=== PATIENT | female | born 1945 | race Caucasian/White ===

== ENCOUNTER → 2019-06-04 10:54 | Outpatient (CLI) | payer MEDICARE, OTHER, SELFPAY ==
--- NOTE | 2019-06-04 | DI.RAD.S_ITS ---
PROCEDURE: XR LUMBAR SPINE 2-3V INDICATIONS: LOW BACK PAIN,ACUTE TECHNIQUE: 5 views of the lumbar spine were acquired. COMPARISON: None. FINDINGS: Bones: 5 [id number] vertebrae are present. Mild dextroscoliosis. Multilevel grade one retrolisthesis. Mild multilevel disc degeneration and lower lumbar spine facet joint arthropathy.. No vertebral body compression fractures. No suspicious bony lesions. Soft tissues: Overlying bowel gas pattern is normal. No suspicious soft tissue calcifications. IMPRESSION: Multilevel spondylosis. Dictated by: Yonathan CHAVEZ Interpreted: Vera Gutierrez MD on 06/04/2019 at 17:33 Approved by: Vera Gutierrez M.D. on 06/04/2019 at 18:37
== END ==
PROVIDERS: PCP Family Medicine; Visit Provider Family Medicine
DX: M54.5 Low back pain (principal); M47.816 Spondylosis without myelopathy or radiculopathy, lumbar region
CPT/HCPCS: 72100

== ENCOUNTER → 2020-02-21 11:51 | Outpatient (CLI) | payer MEDICARE, OTHER, SELFPAY ==
[2020-02-21 12:17] LABS: Add Manual Diff / Slide Review NO; Basophils Absolute Auto 0 /uL (0-100); Basophils Percent Auto 0.6 % (0-2); Eosinophils Absolute Auto 100 /uL (0-450); Eosinophils Percent Auto 1.4 % (2-4); Hematocrit 37.8 % (41-53); Hemoglobin 12.6 g/dL (13.5-17.5); Lymphocytes Absolute Auto 1300 /uL (1100-4500); Lymphocytes Percent Auto 17.8 % (25-40); Mean Corpuscular HGB Conc 33.2 % (30-36); Mean Corpuscular Hemoglobin 29.5 PG (26-34); Mean Corpuscular Volume 88.8 fL (80-100); Monocytes Absolute Auto 600 /uL (0-900); Neutrophils Absolute Auto 5100 /uL (1500-7000); Neutrophils Percent Auto 72.2 % (50-75); Platelet Count 246 X10^3/uL (150-400); Red Blood Cell Count 4.26 X10^6/uL (4.5-5.9); Red Cell Distribution Width 15.4 % (11.6-14.8); White Blood Cell Count 7.1 X10^3/uL (4.5-11.0)
[2020-02-21 12:46] LABS: Alanine Aminotransferase 9 IU/L (<50); Albumin 3.4 g/dL (3.5-5.0); Albumin Globulin Ratio 0.8 (1.0-2.8); Alkaline Phosphatase 60 U/L (38-126); Aspartate Aminotransferase 27 IU/L (17-59); BUN Creatinine Ratio 10.2 (6-22); Bilirubin Total 0.7 mg/dL (0.2-1.3); Blood Urea Nitrogen 10 mg/dL (9-20); Calcium 8.7 mg/dL (8.4-10.2); Carbon Dioxide 28 mmol/L (22-32); Chloride 102 mmol/L (98-107); Estimated Glomerular Filt Rate > 60.0 mL/min (>60); Globulin 4.5 g/dL (1.7-4.1); Glucose 92 mg/dL (80-110); HEMOLYSIS 28 (0-50); Lipase 67 U/L (23-300); Potassium 4.4 mmol/L (3.4-5.1); Sodium 133 mmol/L (137-145); Total Protein 7.9 g/dL (6.3-8.2)
--- NOTE | 2020-02-21 14:16 | DI.CT.S_ITS ---
PROCEDURE: CT ABDOMEN PELVIS W CON INDICATIONS: LEFT LOWER QUADRANT PAIN TECHNIQUE: After the administration of oral and intravenous contrast, 5 mm thick sections acquired from the diaphragms to the symphysis. 5 mm thick coronal and sagittal reformats were performed. For radiation dose reduction, the following was used: automated exposure control, adjustment of mA and/or kV according to patient size. COMPARISON: None. FINDINGS: Image quality: Excellent. ABDOMEN: Lung bases: Lung bases are clear. Heart size is normal. There is a small hiatal hernia. Solid organs: Evaluation of the liver demonstrates no focal hepatic lesions. The gallbladder appears within normal limits without calcified gallstones. Biliary system is non-dilated. Pancreas enhances normally. No peripancreatic fat stranding or fluid collections. No pancreatic duct dilatation. The spleen is normal in size. No adrenal nodules. Kidneys demonstrate no hydronephrosis. Peritoneum and bowel: Stomach and small bowel loops are normal in caliber and wall thickness. There is colonic diverticulosis with associated peridiverticular inflammatory fat stranding and segmental colonic wall thickening in the proximal sigmoid colon consistent with acute diverticulitis. No diverticular abscess or definite macroscopic free air. No intraperitoneal free fluid. Nodes and vessels: No retroperitoneal or mesenteric adenopathy. Aorta and inferior vena cava are normal in caliber. Miscellaneous: No ventral hernias. PELVIS: Genitourinary: Bladder wall thickness is normal. Miscellaneous: No inguinal hernias or adenopathy. Bones: No suspicious bony lesions. No vertebral body compression fractures. IMPRESSION: 1. Acute diverticulitis in the proximal sigmoid colon without evidence of diverticular abscess or macroscopic free air. 2. Small hiatal hernia. Dictated by: Hever Ace M.D. on 02/21/2020 at 15:57 Approved by: Hever Ace M.D. on 02/21/2020 at 16:00
== END ==
PROVIDERS: PCP Family Medicine; Referring Provider Family Medicine; Visit Provider Family Medicine
DX: R10.32 Left lower quadrant pain (principal); K57.32 Diverticulitis of large intestine without perforation or abscess without bleeding; K44.9 Diaphragmatic hernia without obstruction or gangrene
CPT/HCPCS: 36415; 74177; 80053; 83690; 85025; Q9967

== ENCOUNTER 2020-04-29 13:00 | Outpatient (RCR) | payer MEDICARE, OTHER, SELFPAY ==
--- NOTE | 2019-05-07 15:52 | PT.OTN ---
Current Diagnoses Low back pain (05/07/19) Physical Therapy Treatment Note PT-OP-A Visit Information Start: 05/07/19 12:10 Freq: Status: Active Protocol: Document 05/07/19 12:18 MB (Rec: 05/07/19 12:48 MB [id number]) Out-Patient Physical Therapy Visit Information Visit Information Visit Type Initial Evaluation Visit Note Pt has been seen for extensive OPPT course previous to this one Visit Start Time 12:18 Visit Stop Time 13:00 Total Visit Minutes 42 Visit Number 1/KX modifier Precautions Precautions Falls, history of orthostasis and a-fib, pt takes Warfarin PT-OP-B Current Condition Start: 05/07/19 12:10 Freq: Status: Active Protocol: Document 05/07/19 12:18 MB (Rec: 05/07/19 12:48 MB [id number]) Current Condition History of Current Condition Onset Date 03/14 History of Current Condition Onset of back pain when catching right foot on edge of tub causing left foot to skid on tile. He grabbed rail on left side and then reached around with right hand also grabbed the rail. He pulled himself upright. He had to drag his right leg across the bathtub. Pt had increased LBP with ride from [place] this date. His pain is 6.5/10 with attempted 6MWT this date and so stopped. Pt reports pain and burning in the back of his legs. Further pain ratings: at their worse, LBP is 8/10, proximal LE pain is 7/10 and left heel pain is 5/10, right ankle 4/10. Pain is occ worse when up. PMH: orthostasis, PTSD, a-fib, Warfarin, falls, right ankle fracture, CA, sleep apnea and has CPAP, morbid obesity, lymphedema, dizziness and BPPV cleared by PT, memory loss. Prior Treatments and Tests OPPT Treatment Goals Patient/Caregiver Goals Decreased pain and increased mobility. He has not been going to [facility] regularly d/t pain and decreased mobility and he wants to get back to [facility]. Personal Factors Other Personal Factors That May Effect PTSD, long commute with Therapy/Recovery increased back pain with commute, history orthostasis and near-syncope PT-OP-C Subjective Start: 05/07/19 12:10 Freq: Status: Active Protocol: Document 05/07/19 12:18 MB (Rec: 05/07/19 12:49 MB [id number]) OP-PT Subjective Patient Comments Patient Comments See history of current complaints PT-OP-G Mobility & Gait Start: 05/07/19 12:10 Freq: Status: Active Protocol: Document 05/07/19 12:18 MB (Rec: 05/07/19 15:52 MB [id number]) OP Gait Assessment Comments Gait Comments Forward, flexed posture with use of his bariatric RW with tray. Decreased step-length and foot clearance and pt winces with pain after 112' gait and reports 6.5/10 LBP and so 6MWT stopped. He was able to walk this distance in 80 sec. PT-OP-M Strength Start: 05/07/19 12:10 Freq: Status: Active Protocol: Document 05/07/19 12:18 MB (Rec: 05/07/19 15:52 MB [id number]) Hip Strength Hip Manual Muscle Testing Left Flexion (L2) 2- Poor- Right Flexion (L2) 2- Poor- Comments Pt is unable to clear thigh off bench Knee Strength Knee Manual Muscle Testing Left Extension (L3) 3 Fair Comments Pt is unable to clear his foot back in sitting to assess knee flexion. Right Extension (L3) 3 Fair Comments Pt is unable to clear his foot back in sitting to assess knee flexion. Ankle/Foot Strength Ankle and Foot Manual Muscle Testing Left Dorsiflexion (L4) 4 Good Plantarflexion (S1) 4 Good Comments Great toe extension left 4/5 Right Dorsiflexion (L4) 4 Good Plantarflexion (S1) 3 Fair Comments Great toe extension right 3+/5 PT-OP-T Assessment and Plan Start: 05/07/19 12:10 Freq: Status: Active Protocol: Document 05/07/19 12:18 MB (Rec: 05/07/19 15:52 MB [id number]) Physical Therapy Assessment Rehab Potential Rehabilitation Potential Fair Evaluation Complexity Number of Personal Factors/Comorbidities 1-2 Number of Body Systems Impaired 3 Clinical Presentation at Evaluation Unstable Impairments Impairments Activity Tolerance,Balance, Edema,Functional Activities, Functional Mobility,Gait, Integument,Pain,Posture,ROM, Sensation,Soft Tissue Mobility ,Strength Other Impairments Pt presents with decreased sensation to light touch in his posterior LEs and feet. Goals 5 Care Home Goal (LTG) Pt will gait train 1200 feet with LRAD in 6 minutes by 07/07. LTG Duration 8 weeks 4 Impairment Inability to perform sit to stand on eval date without UE support Paving Bed Maker Goal (LTG) Pt will perform 15 reps sit to stand without UE support in 30 sec by 07/07/19. LTG Duration 8 weeks 3 Paving Bed Maker Goal (LTG) Pt will perform progressive HEP with I including flexibility, strengthening, gait and balance exercises by 07/07/19. LTG Duration 8 weeks 2 Care Home Goal (LTG) Pt will deny falls for 2 months by 07/07/19. LTG Duration 8 weeks 1 Paving Bed Maker Goal (LTG) Pt will present with an improved Oswestry LBP scale score to reflect no more than 30% impairment by 07/07/19. LTG Duration 8 weeks Assessment Summary Assessment Pt is a 73 y/o male presenting with back pain, decreased LE ROM (he cannot clear B thighs off bench when sitting), LE weakness and decreased walk test and sit to stand this date. He received PT earlier this year and presented with ability to go to [facility], clearer mentation (pt reports) and better gait. He reports declining mobility and ability to get out of his house since February 2019. Pt had a lot of back in low back after long ride from [place] to [place]. PT is concerned about pain and safety with the commute and transfer between public transportation vehicles . Will monitor his response to getting to appointments. He will benefit from PT for strengthening, balance and mobility training. He would benefit from PT 2x/wk but can only make 1x/wk d/t long distance, transportation trouble. Physical Therapy Plan Frequency and Duration Frequency of Treatment 1x/Week Duration of Treatment 8 weeks Plan of Care Start Date 05/07/19 Plan of Care End Date 07/08/19 Therapeutic Interventions Therapeutic Interventions Gait Training,Home Exercise Program,Manual Therapy, Neuromuscular Re-education, Patient/Caregiver Education, Self-Care/Home Management, Sensory Integration,Soft Tissue Mobilization,Taping, Therapeutic Exercises Next Visit Focus/Plan Next Note Type Treatment Note Next Visit Plan Initiate further mobility exercises
--- NOTE | 2019-05-17 13:08 | PT.OTN ---
Current Diagnoses Low back pain (05/17/19) Physical Therapy Treatment Note PT-OP-A Visit Information Start: 05/07/19 12:10 Freq: Status: Active Protocol: Document 05/17/19 12:02 MB (Rec: 05/17/19 13:07 MB [id number]) Out-Patient Physical Therapy Visit Information Visit Information Visit Type Treatment Note Visit Note Pt has been seen for extensive OPPT course previous to this one Visit Start Time 12:02 Visit Stop Time 12:55 Total Visit Minutes 53 Visit Number 2/KX modifier Precautions Precautions Falls, history of orthostasis and a-fib, pt takes Warfarin PT-OP-B Current Condition Start: 05/07/19 12:10 Freq: Status: Active Protocol: Document 05/07/19 12:18 MB (Rec: 05/07/19 12:48 MB [id number]) Current Condition History of Current Condition Onset Date 03/14 History of Current Condition Onset of back pain when catching right foot on edge of tub causing left foot to skid on tile. He grabbed rail on left side and then reached around with right hand also grabbed the rail. He pulled himself upright. He had to drag his right leg across the bathtub. Pt had increased LBP with ride from [place] this date. His pain is 6.5/10 with attempted 6MWT this date and so stopped. Pt reports pain and burning in the back of his legs. Further pain ratings: at their worse, LBP is 8/10, proximal LE pain is 7/10 and left heel pain is 5/10, right ankle 4/10. Pain is occ worse when up. PMH: orthostasis, PTSD, a-fib, Warfarin, falls, right ankle fracture, CA, sleep apnea and has CPAP, morbid obesity, lymphedema, dizziness and BPPV cleared by PT, memory loss. Prior Treatments and Tests OPPT Treatment Goals Patient/Caregiver Goals Decreased pain and increased mobility. He has not been going to [employer] regularly d/t pain and decreased mobility and he wants to get back to [employer]. Personal Factors Other Personal Factors That May Effect PTSD, long commute with Therapy/Recovery increased back pain with commute, history orthostasis and near-syncope PT-OP-C Subjective Start: 05/07/19 12:10 Freq: Status: Active Protocol: Document 05/17/19 12:02 MB (Rec: 05/17/19 13:07 MB [id number]) OP-PT Subjective Patient Comments Patient Comments Pt reports 3/10 back pain upon arrival. Ride to [place] was better. He has increased 4 /10 back pain on SciFit and must stop d/t right knee pain 8/10. PT-OP-G Mobility & Gait Start: 05/07/19 12:10 Freq: Status: Active Protocol: Document 05/07/19 12:18 MB (Rec: 05/07/19 15:52 MB [id number]) OP Gait Assessment Comments Gait Comments Forward, flexed posture with use of his bariatric RW with tray. Decreased step-length and foot clearance and pt winces with pain after 112' gait and reports 6.5/10 LBP and so 6MWT stopped. He was able to walk this distance in 80 sec. PT-OP-M Strength Start: 05/07/19 12:10 Freq: Status: Active Protocol: Document 05/07/19 12:18 MB (Rec: 05/07/19 15:52 MB [id number]) Hip Strength Hip Manual Muscle Testing Left Flexion (L2) 2- Poor- Right Flexion (L2) 2- Poor- Comments Pt is unable to clear thigh off bench Knee Strength Knee Manual Muscle Testing Left Extension (L3) 3 Fair Comments Pt is unable to clear his foot back in sitting to assess knee flexion. Right Extension (L3) 3 Fair Comments Pt is unable to clear his foot back in sitting to assess knee flexion. Ankle/Foot Strength Ankle and Foot Manual Muscle Testing Left Dorsiflexion (L4) 4 Good Plantarflexion (S1) 4 Good Comments Great toe extension left 4/5 Right Dorsiflexion (L4) 4 Good Plantarflexion (S1) 3 Fair Comments Great toe extension right 3+/5 PT-OP-Q Treatments Start: 05/07/19 12:10 Freq: Status: Active Protocol: Document 05/17/19 12:02 MB (Rec: 05/17/19 13:07 MB [id number]) Cardio Equipment Recumbent Stepper (Sci-Fit) Duration (Minutes) 5 Resistance 1.0 Seat Position 19 Other Frequent breaks every 30 sec, back and right knee pain; O2 97% HR 76 BPM Therapeutic Exercises Sitting Exercises EFT tapping Comments EFT tapping to help decrease pain Sit to stands without UE support Comments 4 reps in 20 sec and then pt has clinching back spasm B shoulder elevation for thoracic extension Comments x1 after spasming thoracic area Diaphragmatic breathing Comments Performed in sitting Thoracic rotation with hands across to elbows Comments Performed sitting edge of mat with breath at end range Ball kicking Comments Ball kicking in sitting without back support x5' Manual Therapy Treatment Taping R knee KT Comments R knee KT for support--c strip under patella and B I strips to support medial and lateral knee Other Other Manual Treatments STM with MWM B thoracolumbar paraspinals and pt reports decreased discomfort PT-OP-T Assessment and Plan Start: 05/07/19 12:10 Freq: Status: Active Protocol: Document 05/17/19 12:02 MB (Rec: 05/17/19 13:07 MB [id number]) Physical Therapy Assessment Rehab Potential Rehabilitation Potential Fair Evaluation Complexity Number of Personal Factors/Comorbidities 1-2 Number of Body Systems Impaired 3 Clinical Presentation at Evaluation Unstable Impairments Impairments Activity Tolerance,Balance, Edema,Functional Activities, Functional Mobility,Gait, Integument,Pain,Posture,ROM, Sensation,Soft Tissue Mobility ,Strength Other Impairments Pt presents with decreased sensation to light touch in his posterior LEs and feet. Goals 5 Prison Goal (LTG) Pt will gait train 1200 feet with LRAD in 6 minutes by 07/07. LTG Duration 8 weeks 4 Impairment Inability to perform sit to stand on eval date without UE support Agricultural Equipment Sales Manager Goal (LTG) Pt will perform 15 reps sit to stand without UE support in 30 sec by 07/07/19. LTG Duration 8 weeks 3 Prison Goal (LTG) Pt will perform progressive HEP with I including flexibility, strengthening, gait and balance exercises by 07/07/19. LTG Duration 8 weeks 2 Prison Goal (LTG) Pt will deny falls for 2 months by 07/07/19. LTG Duration 8 weeks 1 Prison Goal (LTG) Pt will present with an improved Oswestry LBP scale score to reflect no more than 30% impairment by 07/07/19. LTG Duration 8 weeks Assessment Summary Assessment Initiated SciFit today, first time pt has gotten on a cardio machine. He had increased pain and fatigue. His back pain got up to 7.5/10 with sit to stands and back pain limits exercises. Con't progression as pt tolerates. Pt requires a lot of rest breaks. He requires min A to get up from short and small chair and then can get up with I from higher and wider surfaces, without UE support. Physical Therapy Plan Frequency and Duration Frequency of Treatment 1x/Week Duration of Treatment 8 weeks Plan of Care Start Date 05/07/19 Plan of Care End Date 07/08/19 Therapeutic Interventions Therapeutic Interventions Gait Training,Home Exercise Program,Manual Therapy, Neuromuscular Re-education, Patient/Caregiver Education, Self-Care/Home Management, Sensory Integration,Soft Tissue Mobilization,Taping, Therapeutic Exercises Next Visit Focus/Plan Next Note Type Treatment Note Next Visit Plan Initiate further mobility exercises
--- NOTE | 2019-05-21 09:06 | PT-OP ANOTE ---
PT spoke with pt. He had a back spasm this morning in his normal area and also down into his SI area. He will not be able to make it to therapy and is calling Dr. Salazar's office.
--- NOTE | 2019-05-28 07:27 | PT-OP ANOTE ---
Pt leaves message that he has hurt back so badly that he cannot feel his legs and he cannot ride the bus from [place]. PT will return pt's call as schedule allows.
--- NOTE | 2019-05-28 09:25 | PT-OP ANOTE ---
[id number] PT calls pt and he states that he cannot feel his legs. He is able to get up with his walker in the house and to the the bathroom. He has some help at home. He is waiting for Dr. Salazar's office to call him back. He has appointment here to have lumbar x-rays right before PT appointment so that he does not have to make two journeys from [facility].
--- NOTE | 2019-06-04 13:00 | PT.OTN ---
Current Diagnoses Low back pain (06/04/19) Physical Therapy Treatment Note PT-OP-A Visit Information Start: 05/07/19 12:10 Freq: Status: Active Protocol: Document 06/04/19 12:09 MB (Rec: 06/04/19 13:00 MB [id number]) Out-Patient Physical Therapy Visit Information Visit Information Visit Type Treatment Note Visit Note Pt has been seen for extensive OPPT course previous to this one Visit Start Time 12:09 Visit Stop Time 12:54 Total Visit Minutes 45 Visit Number 3/KX modifier Precautions Precautions Falls, history of orthostasis and a-fib, pt takes Warfarin PT-OP-B Current Condition Start: 05/07/19 12:10 Freq: Status: Active Protocol: Document 05/07/19 12:18 MB (Rec: 05/07/19 12:48 MB [id number]) Current Condition History of Current Condition Onset Date 03/14 History of Current Condition Onset of back pain when catching right foot on edge of tub causing left foot to skid on tile. He grabbed rail on left side and then reached around with right hand also grabbed the rail. He pulled himself upright. He had to drag his right leg across the bathtub. Pt had increased LBP with ride from [place] this date. His pain is 6.5/10 with attempted 6MWT this date and so stopped. Pt reports pain and burning in the back of his legs. Further pain ratings: at their worse, LBP is 8/10, proximal LE pain is 7/10 and left heel pain is 5/10, right ankle 4/10. Pain is occ worse when up. PMH: orthostasis, PTSD, a-fib, Warfarin, falls, right ankle fracture, CA, sleep apnea and has CPAP, morbid obesity, lymphedema, dizziness and BPPV cleared by PT, memory loss. Prior Treatments and Tests OPPT Treatment Goals Patient/Caregiver Goals Decreased pain and increased mobility. He has not been going to religion regularly d/t pain and decreased mobility and he wants to get back to religion. Personal Factors Other Personal Factors That May Effect PTSD, long commute with Therapy/Recovery increased back pain with commute, history orthostasis and near-syncope PT-OP-C Subjective Start: 05/07/19 12:10 Freq: Status: Active Protocol: Document 06/04/19 12:09 MB (Rec: 06/04/19 13:00 MB [id number]) OP-PT Subjective Patient Comments Patient Comments Pt had x-ray before PT. He was cleared by Dr. Salazar to con 't with PT despite awaiting results. He is taking muscle relaxor regimine to help with back pain and it seems to be helpful. PT-OP-G Mobility & Gait Start: 05/07/19 12:10 Freq: Status: Active Protocol: Document 05/07/19 12:18 MB (Rec: 05/07/19 15:52 MB [id number]) OP Gait Assessment Comments Gait Comments Forward, flexed posture with use of his bariatric RW with tray. Decreased step-length and foot clearance and pt winces with pain after 112' gait and reports 6.5/10 LBP and so 6MWT stopped. He was able to walk this distance in 80 sec. PT-OP-M Strength Start: 05/07/19 12:10 Freq: Status: Active Protocol: Document 05/07/19 12:18 MB (Rec: 05/07/19 15:52 MB [id number]) Hip Strength Hip Manual Muscle Testing Left Flexion (L2) 2- Poor- Right Flexion (L2) 2- Poor- Comments Pt is unable to clear thigh off bench Knee Strength Knee Manual Muscle Testing Left Extension (L3) 3 Fair Comments Pt is unable to clear his foot back in sitting to assess knee flexion. Right Extension (L3) 3 Fair Comments Pt is unable to clear his foot back in sitting to assess knee flexion. Ankle/Foot Strength Ankle and Foot Manual Muscle Testing Left Dorsiflexion (L4) 4 Good Plantarflexion (S1) 4 Good Comments Great toe extension left 4/5 Right Dorsiflexion (L4) 4 Good Plantarflexion (S1) 3 Fair Comments Great toe extension right 3+/5 PT-OP-Q Treatments Start: 05/07/19 12:10 Freq: Status: Active Protocol: Document 06/04/19 12:09 MB (Rec: 06/04/19 13:00 MB [id number]) Cardio Equipment Recumbent Stepper (Sci-Fit) Duration (Minutes) 5 Resistance 1.0 Therapeutic Exercises Sitting Exercises Diaphragmatic breathing Comments Performed in sitting Ball kicking Comments Ed pt to picking supervisor feet for getting and kicking ball Standing Exercises Sit to stands Comments 9 reps in 30 sec today Fencing with pool noodles Comments 5 sets, rest breaks every 1' of exercise PT-OP-T Assessment and Plan Start: 05/07/19 12:10 Freq: Status: Active Protocol: Document 06/04/19 12:09 MB (Rec: 06/04/19 13:00 MB [id number]) Physical Therapy Assessment Rehab Potential Rehabilitation Potential Fair Evaluation Complexity Number of Personal Factors/Comorbidities 1-2 Number of Body Systems Impaired 3 Clinical Presentation at Evaluation Unstable Impairments Impairments Activity Tolerance,Balance, Edema,Functional Activities, Functional Mobility,Gait, Integument,Pain,Posture,ROM, Sensation,Soft Tissue Mobility ,Strength Other Impairments Pt presents with decreased sensation to light touch in his posterior LEs and feet. Goals 5 Alf Goal (LTG) Pt will gait train 1200 feet with LRAD in 6 minutes by 07/07. LTG Duration 8 weeks 4 Impairment Inability to perform sit to stand on eval date without UE support Alf Goal (LTG) Pt will perform 15 reps sit to stand without UE support in 30 sec by 07/07/19. LTG Duration 8 weeks 3 Automobile Body Repairer Helper Goal (LTG) Pt will perform progressive HEP with I including flexibility, strengthening, gait and balance exercises by 07/07/19. LTG Duration 8 weeks 2 Alf Goal (LTG) Pt will deny falls for 2 months by 07/07/19. LTG Duration 8 weeks 1 Alf Goal (LTG) Pt will present with an improved Oswestry LBP scale score to reflect no more than 30% impairment by 07/07/19. LTG Duration 8 weeks Assessment Summary Assessment Pt is able to progress balance exercises today. Back pain is a limiting factor. Pain gets up to 4.5/10 and he has taken muscle relaxor before PT. Pt is able to gait train without RW to mat. Pt to try to get a personal ride to appointments so that he does not have to travel for so long with transit. X-ray findings not available before PT treatment this date. Physical Therapy Plan Frequency and Duration Frequency of Treatment 1x/Week Duration of Treatment 8 weeks Plan of Care Start Date 05/07/19 Plan of Care End Date 07/08/19 Therapeutic Interventions Therapeutic Interventions Gait Training,Home Exercise Program,Manual Therapy, Neuromuscular Re-education, Patient/Caregiver Education, Self-Care/Home Management, Sensory Integration,Soft Tissue Mobilization,Taping, Therapeutic Exercises Next Visit Focus/Plan Next Note Type Treatment Note Next Visit Plan Review previous HEP and modify as needed
--- NOTE | 2019-06-11 13:01 | PT.OTN ---
Current Diagnoses Low back pain (06/11/19) Physical Therapy Treatment Note PT-OP-A Visit Information Start: 05/07/19 12:10 Freq: Status: Active Protocol: Document 06/11/19 12:16 MB (Rec: 06/11/19 13:01 MB [id number]) Out-Patient Physical Therapy Visit Information Visit Information Visit Type Treatment Note Visit Note Pt has been seen for extensive OPPT course previous to this one Visit Start Time 12:16 Visit Stop Time 12:56 Total Visit Minutes 40 Visit Number 4/KX modifier Precautions Precautions Falls, history of orthostasis and a-fib, pt takes Warfarin PT-OP-B Current Condition Start: 05/07/19 12:10 Freq: Status: Active Protocol: Document 05/07/19 12:18 MB (Rec: 05/07/19 12:48 MB [id number]) Current Condition History of Current Condition Onset Date 03/14 History of Current Condition Onset of back pain when catching right foot on edge of tub causing left foot to skid on tile. He grabbed rail on left side and then reached around with right hand also grabbed the rail. He pulled himself upright. He had to drag his right leg across the bathtub. Pt had increased LBP with ride from [place] this date. His pain is 6.5/10 with attempted 6MWT this date and so stopped. Pt reports pain and burning in the back of his legs. Further pain ratings: at their worse, LBP is 8/10, proximal LE pain is 7/10 and left heel pain is 5/10, right ankle 4/10. Pain is occ worse when up. PMH: orthostasis, PTSD, a-fib, Warfarin, falls, right ankle fracture, CA, sleep apnea and has CPAP, morbid obesity, lymphedema, dizziness and BPPV cleared by PT, memory loss. Prior Treatments and Tests OPPT Treatment Goals Patient/Caregiver Goals Decreased pain and increased mobility. He has not been going to [employer] regularly d/t pain and decreased mobility and he wants to get back to [employer]. Personal Factors Other Personal Factors That May Effect PTSD, long commute with Therapy/Recovery increased back pain with commute, history orthostasis and near-syncope PT-OP-C Subjective Start: 05/07/19 12:10 Freq: Status: Active Protocol: Document 06/11/19 12:16 MB (Rec: 06/11/19 13:01 MB [id number]) OP-PT Subjective Patient Comments Patient Comments Pt states that lumbar x-ray revealed a lot of arthritis. He would like to try to get in his car today and try using his brakes. PT-OP-G Mobility & Gait Start: 05/07/19 12:10 Freq: Status: Active Protocol: Document 05/07/19 12:18 MB (Rec: 05/07/19 15:52 MB [id number]) OP Gait Assessment Comments Gait Comments Forward, flexed posture with use of his bariatric RW with tray. Decreased step-length and foot clearance and pt winces with pain after 112' gait and reports 6.5/10 LBP and so 6MWT stopped. He was able to walk this distance in 80 sec. PT-OP-M Strength Start: 05/07/19 12:10 Freq: Status: Active Protocol: Document 05/07/19 12:18 MB (Rec: 05/07/19 15:52 MB [id number]) Hip Strength Hip Manual Muscle Testing Left Flexion (L2) 2- Poor- Right Flexion (L2) 2- Poor- Comments Pt is unable to clear thigh off bench Knee Strength Knee Manual Muscle Testing Left Extension (L3) 3 Fair Comments Pt is unable to clear his foot back in sitting to assess knee flexion. Right Extension (L3) 3 Fair Comments Pt is unable to clear his foot back in sitting to assess knee flexion. 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 for getting and kicking ball Standing Exercises Sit to stands Reps/Minutes 30 sec: 9 reps no UE asst; 9 reps Comments Performed from car today as well as brake and gas pumping, mod A, holds car PT-OP-T Assessment and Plan Start: 05/07/19 12:10 Freq: Status: Active Protocol: Document 06/11/19 12:16 MB (Rec: 06/11/19 13:01 MB [id number]) Physical Therapy Assessment Rehab Potential Rehabilitation Potential Fair Evaluation Complexity Number of Personal Factors/Comorbidities 1-2 Number of Body Systems Impaired 3 Clinical Presentation at Evaluation Unstable Impairments Impairments Activity Tolerance,Balance, Edema,Functional Activities, Functional Mobility,Gait, Integument,Pain,Posture,ROM, Sensation,Soft Tissue Mobility ,Strength Other Impairments Pt presents with decreased sensation to light touch in his posterior LEs and feet. Goals 5 Correction Goal (LTG) Pt will gait train 1200 feet with LRAD in 6 minutes by 07/07. LTG Duration 8 weeks 4 Impairment Inability to perform sit to stand on eval date without UE support Correction Goal (LTG) Pt will perform 15 reps sit to stand without UE support in 30 sec by 07/07/19. LTG Duration 8 weeks 3 Fabrication [employer] Layout Craftsman Goal (LTG) Pt will perform progressive HEP with I including flexibility, strengthening, gait and balance exercises by 07/07/19. LTG Duration 8 weeks 2 [employer] Layout Craftsman Goal (LTG) Pt will deny falls for 2 months by 07/07/19. LTG Duration 8 weeks 1 [employer] Layout Craftsman Goal (LTG) Pt will present with an improved Oswestry LBP scale score to reflect no more than 30% impairment by 07/07/19. LTG Duration 8 weeks Assessment Summary Assessment Pt requires mod A with getting out of his car with assist around gait belt. He presents with fatigue after practice getting in and out of car. Pt reports 4/10 back pain during treatment. Progress sit to stands from low surfaces. Physical Therapy Plan Frequency and Duration Frequency of Treatment 1x/Week Duration of Treatment 8 weeks Plan of Care Start Date 05/07/19 Plan of Care End Date 07/08/19 Therapeutic Interventions Therapeutic Interventions Gait Training,Home Exercise Program,Manual Therapy, Neuromuscular Re-education, Patient/Caregiver Education, Self-Care/Home Management, Sensory Integration,Soft Tissue Mobilization,Taping, Therapeutic Exercises Next Visit Focus/Plan Next Note Type Treatment Note Next Visit Plan Review previous HEP and modify as needed
--- NOTE | 2019-06-25 12:44 | PT.OTN ---
Current Diagnoses Low back pain (06/25/19) Physical Therapy Treatment Note PT-OP-A Visit Information Start: 05/07/19 12:10 Freq: Status: Active Protocol: Document 06/25/19 12:00 MB (Rec: 06/25/19 12:44 MB [id number]) Out-Patient Physical Therapy Visit Information Visit Information Visit Type Treatment Note Visit Note Pt has been seen for extensive OPPT course previous to this one Visit Start Time 12:00 Visit Stop Time 12:40 Total Visit Minutes 40 Visit Number 5/KX modifier Precautions Precautions Falls, history of orthostasis and a-fib, pt takes Warfarin PT-OP-B Current Condition Start: 05/07/19 12:10 Freq: Status: Active Protocol: Document 05/07/19 12:18 MB (Rec: 05/07/19 12:48 MB [id number]) Current Condition History of Current Condition Onset Date 03/14 History of Current Condition Onset of back pain when catching right foot on edge of tub causing left foot to skid on tile. He grabbed rail on left side and then reached around with right hand also grabbed the rail. He pulled himself upright. He had to drag his right leg across the bathtub. Pt had increased LBP with ride from [place] this date. His pain is 6.5/10 with attempted 6MWT this date and so stopped. Pt reports pain and burning in the back of his legs. Further pain ratings: at their worse, LBP is 8/10, proximal LE pain is 7/10 and left heel pain is 5/10, right ankle 4/10. Pain is occ worse when up. PMH: orthostasis, PTSD, a-fib, Warfarin, falls, right ankle fracture, CA, sleep apnea and has CPAP, morbid obesity, lymphedema, dizziness and BPPV cleared by PT, memory loss. Prior Treatments and Tests OPPT Treatment Goals Patient/Caregiver Goals Decreased pain and increased mobility. He has not been going to hinduism regularly d/t pain and decreased mobility and he wants to get back to hinduism. Personal Factors Other Personal Factors That May Effect PTSD, long commute with Therapy/Recovery increased back pain with commute, history orthostasis and near-syncope PT-OP-C Subjective Start: 05/07/19 12:10 Freq: Status: Active Protocol: Document 06/25/19 12:00 MB (Rec: 06/25/19 12:44 MB [id number]) OP-PT Subjective Patient Comments Patient Comments Pt states that his back is better but he has had an annoying headache for two days . He went into the hospital in [place] 06/18/19 and was kept for observation and was told that there is nothing wrong with him. Head CT was negative. Dr. Salazar is aware and is okay with him con't PT . He will see her in 2 days. PT-OP-G Mobility & Gait Start: 05/07/19 12:10 Freq: Status: Active Protocol: Document 05/07/19 12:18 MB (Rec: 05/07/19 15:52 MB [id number]) OP Gait Assessment Comments Gait Comments Forward, flexed posture with use of his bariatric RW with tray. Decreased step-length and foot clearance and pt winces with pain after 112' gait and reports 6.5/10 LBP and so 6MWT stopped. He was able to walk this distance in 80 sec. PT-OP-M Strength Start: 05/07/19 12:10 Freq: Status: Active Protocol: Document 05/07/19 12:18 MB (Rec: 05/07/19 15:52 MB [id number]) Hip Strength Hip Manual Muscle Testing Left Flexion (L2) 2- Poor- Right Flexion (L2) 2- Poor- Comments Pt is unable to clear thigh off bench Knee Strength Knee Manual Muscle Testing Left Extension (L3) 3 Fair Comments Pt is unable to clear his foot back in sitting to assess knee flexion. Right Extension (L3) 3 Fair Comments Pt is unable to clear his foot back in sitting to assess knee flexion. Ankle/Foot Strength Ankle and Foot Manual Muscle Testing Left Dorsiflexion (L4) 4 Good Plantarflexion (S1) 4 Good Comments Great toe extension left 4/5 Right Dorsiflexion (L4) 4 Good Plantarflexion (S1) 3 Fair Comments Great toe extension right 3+/5 PT-OP-Q Treatments Start: 05/07/19 12:10 Freq: Status: Active Protocol: Document 06/25/19 12:00 MB (Rec: 06/25/19 12:44 MB [id number]) Cardio Equipment Recumbent Stepper (Sci-Fit) Duration (Minutes) 3 Resistance 2.0 Therapeutic Exercises Sitting Exercises LAQs with APs Comments LAQs with APs x10 with each LAQ, 5 reps Scapular retraction Comments 10 reps sitting upright Cervical rotation and nods sitting upright Comments 10 reps both directions Diaphragmatic breathing Comments 3 reps in sitting Thoracic rotation with hands across to elbows Comments 5 reps both sides in sitting, pain in LB and PT eds him to decrease ROMLAQ Ball kicking Comments 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 for getting and kicking ball PT-OP-T Assessment and Plan Start: 05/07/19 12:10 Freq: Status: Active Protocol: Document 06/25/19 12:00 MB (Rec: 06/25/19 12:44 MB [id number]) Physical Therapy Assessment Rehab Potential Rehabilitation Potential Fair Evaluation Complexity Number of Personal Factors/Comorbidities 1-2 Number of Body Systems Impaired 3 Clinical Presentation at Evaluation Unstable Impairments Impairments Activity Tolerance,Balance, Edema,Functional Activities, Functional Mobility,Gait, Integument,Pain,Posture,ROM, Sensation,Soft Tissue Mobility ,Strength Other Impairments Pt presents with decreased sensation to light touch in his posterior LEs and feet. Goals 5 Scallop Cutter Machine Goal (LTG) Pt will gait train 1200 feet with LRAD in 6 minutes by 07/07. LTG Duration 8 weeks 4 Impairment Inability to perform sit to stand on without UE support Care Home Goal (LTG) Pt will perform 15 reps sit to stand without UE support in 30 sec by 07/07/19. LTG Duration 8 weeks 3 Scallop Cutter Machine Goal (LTG) Pt will perform progressive HEP with I including flexibility, strengthening, gait and balance exercises by 07/07/19. LTG Duration 8 weeks 2 Scallop Cutter Machine Goal (LTG) Pt will deny falls for 2 months by 07/07/19. LTG Duration 8 weeks 1 Scallop Cutter Machine Goal (LTG) Pt will present with an improved Oswestry LBP scale score to reflect no more than 30% impairment by 07/07/19. LTG Duration 8 weeks Assessment Summary Assessment PT limited by VACA pain. PT encourages pt to call Dr. Salazar's office if his headache worsens. Pt states that he has a left calf cramp with the SciFit this date and must stop. He must use machine without shoes in order for feet to move in well and this increases stretch on his calf. Pt reports 4/10 pain upon arrival, 6.5/10 pain with SciFot and decreases to 5/10 after stopping SciFit. He slept in his chair for 12 hours before his headache that took him to the hospital. VACA is retro-orbital. He is coughing up some phlegm. He thinks he might have some sinus issues. Physical Therapy Plan Frequency and Duration Frequency of Treatment 1x/Week Duration of Treatment 8 weeks Plan of Care Start Date 05/07/19 Plan of Care End Date 07/08/19 Therapeutic Interventions Therapeutic Interventions Gait Training,Home Exercise Program,Manual Therapy, Neuromuscular Re-education, Patient/Caregiver Education, Self-Care/Home Management, Sensory Integration,Soft Tissue Mobilization,Taping, Therapeutic Exercises Next Visit Focus/Plan Next Note Type Treatment Note Next Visit Plan Review previous HEP and modify as needed
--- NOTE | 2019-07-02 13:02 | PT.OTN ---
Current Diagnoses Low back pain (07/02/19) Physical Therapy Treatment Note PT-OP-A Visit Information Start: 05/07/19 12:10 Freq: Status: Active Protocol: Document 07/02/19 12:14 MB (Rec: 07/02/19 13:01 MB [id number]) Out-Patient Physical Therapy Visit Information Visit Information Visit Type Treatment Note Visit Note New year Visit Start Time 12:14 Visit Stop Time 12:54 Total Visit Minutes 40 Visit Number 1/unavailable Precautions Precautions Falls, history of orthostasis and a-fib, pt takes Warfarin PT-OP-B Current Condition Start: 05/07/19 12:10 Freq: Status: Active Protocol: Document 05/07/19 12:18 MB (Rec: 05/07/19 12:48 MB [id number]) Current Condition History of Current Condition Onset Date 03/14 History of Current Condition Onset of back pain when catching right foot on edge of tub causing left foot to skid on tile. He grabbed rail on left side and then reached around with right hand also grabbed the rail. He pulled himself upright. He had to drag his right leg across the bathtub. Pt had increased LBP with ride from [employer] this date. His pain is 6.5/10 with attempted 6MWT this date and so stopped. Pt reports pain and burning in the back of his legs. Further pain ratings: at their worse, LBP is 8/10, proximal LE pain is 7/10 and left heel pain is 5/10, right ankle 4/10. Pain is occ worse when up. PMH: orthostasis, PTSD, a-fib, Warfarin, falls, right ankle fracture, CA, sleep apnea and has CPAP, morbid obesity, lymphedema, dizziness and BPPV cleared by PT, memory loss. Prior Treatments and Tests OPPT Treatment Goals Patient/Caregiver Goals Decreased pain and increased mobility. He has not been going to muslim regularly d/t pain and decreased mobility and he wants to get back to muslim. Personal Factors Other Personal Factors That May Effect PTSD, long commute with Therapy/Recovery increased back pain with commute, history orthostasis and near-syncope PT-OP-C Subjective Start: 05/07/19 12:10 Freq: Status: Active Protocol: Document 07/02/19 12:14 MB (Rec: 07/02/19 13:01 MB [id number]) OP-PT Subjective Patient Comments Patient Comments Pt reports that headache got better 24 hours after last PT appointment. PT-OP-G Mobility & Gait Start: 05/07/19 12:10 Freq: Status: Active Protocol: Document 05/07/19 12:18 MB (Rec: 05/07/19 15:52 MB [id number]) OP Gait Assessment Comments Gait Comments Forward, flexed posture with use of his bariatric RW with tray. Decreased step-length and foot clearance and pt winces with pain after 112' gait and reports 6.5/10 LBP and so 6MWT stopped. He was able to walk this distance in 80 sec. PT-OP-M Strength Start: 05/07/19 12:10 Freq: Status: Active Protocol: Document 05/07/19 12:18 MB (Rec: 05/07/19 15:52 MB [id number]) Hip Strength Hip Manual Muscle Testing Left Flexion (L2) 2- Poor- Right Flexion (L2) 2- Poor- Comments Pt is unable to clear thigh off bench Knee Strength Knee Manual Muscle Testing Left Extension (L3) 3 Fair Comments Pt is unable to clear his foot back in sitting to assess knee flexion. Right Extension (L3) 3 Fair Comments Pt is unable to clear his foot back in sitting to assess knee flexion. Ankle/Foot Strength Ankle and Foot Manual Muscle Testing Left Dorsiflexion (L4) 4 Good Plantarflexion (S1) 4 Good Comments Great toe extension left 4/5 Right Dorsiflexion (L4) 4 Good Plantarflexion (S1) 3 Fair Comments Great toe extension right 3+/5 PT-OP-Q Treatments Start: 05/07/19 12:10 Freq: Status: Active Protocol: Document 07/02/19 12:14 MB (Rec: 07/02/19 13:01 MB [id number]) Therapeutic Exercises Standing Exercises Sit to stands Comments 10 reps in 30 sec; reviewed other exercises (see goals) performed tapping Gait Training Gait Activity 6MWT Comments Pt reports 4/10 LBP and 4/4 Dyspnea Scale after gait. He cannot walk the full 6' but is able to walk 492' in 5 minutes with rolling walker. 2 rest breaks during gait PT-OP-T Assessment and Plan Start: 05/07/19 12:10 Freq: Status: Active Protocol: Document 07/02/19 12:14 MB (Rec: 07/02/19 13:01 MB [id number]) Physical Therapy Assessment Rehab Potential Rehabilitation Potential Fair Evaluation Complexity Number of Personal Factors/Comorbidities 1-2 Number of Body Systems Impaired 3 Clinical Presentation at Evaluation Unstable Impairments Impairments Activity Tolerance,Balance, Edema,Functional Activities, Functional Mobility,Gait, Integument,Pain,Posture,ROM, Sensation,Soft Tissue Mobility ,Strength Other Impairments Pt presents with decreased sensation to light touch in his posterior LEs and feet. Goals 5 Care Home Goal (LTG) Pt will gait train 700 feet with LRAD in 6 minutes to improve community distance ambulation by 09/02/2019. 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 07/02/2019: 10 reps in 30 sec LTG Duration 8 weeks 3 Care Home Goal (LTG) Pt will perform progressive HEP with I including flexibility, strengthening, gait and balance exercises to increase functional mobility by 09/02/2019. 07/02/2019: Pt has been performing mini squats, shoulder blade squeezes, cervical rotation, LAQs with APs, tapping at home LTG Duration 8 weeks 2 Care Home Goal (LTG) Pt will deny falls for 2 months to decrease injury risk by 09/02/2019. 07/02/2019: Pt reports he got his foot caught in the sheet and he fell on his knee and hands on rug 06/30/2019. 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 07/02/2019: Pt presents with Oswestry LBP score reflecting 52% impairment LTG Duration 8 weeks Assessment Summary Assessment Pt has progressed towards all PT goals since starting PT. These include six minute walk test, sit to stands, Oswestry LBP scale score and performance of HEP. PT has not provided a lot of exercises this treatment duration. Pt will benefit from ongoing PT for gait, strengthening, balance exercises to help improved functional mobility, I and decrease fall risk. Pt has tripped in the bed sheet for the second time. He will request his help to not fold hospital corners. Pt believes he can get a ride to PT and so will increase frequency to 2x /wk as appointments available. Will decrease frequency if transportation is a problem. Physical Therapy Plan Frequency and Duration Frequency of Treatment 2x/Week Duration of Treatment 8 weeks Plan of Care Start Date 07/02/19 Plan of Care End Date 09/02/19 Therapeutic Interventions Therapeutic Interventions Balance Training,Canalithic Repositioning,Gait Training, Home Exercise Program,Manual Therapy,Neuromuscular Re- education,Patient/Caregiver Education,Self-Care/Home Management,Sensory Integration ,Soft Tissue Mobilization, Taping,Therapeutic Activities, Therapeutic Exercises Next Visit Focus/Plan Next Note Type Treatment Note Next Visit Plan Con't to progress HEP, gait and balance exercises
--- NOTE | 2019-07-09 10:49 | PT-OP ANOTE ---
Cancelled appointment in setting of snow. Pt calls from [place] and PT recommends that he does not make journey to [place] given road condition.
--- NOTE | 2019-07-16 12:57 | PT.OTN ---
Current Diagnoses Low back pain (07/16/19) Physical Therapy Treatment Note PT-OP-A Visit Information Start: 05/07/19 12:10 Freq: Status: Active Protocol: Document 07/16/19 12:15 MB (Rec: 07/16/19 12:57 MB [id number]) Out-Patient Physical Therapy Visit Information Visit Information Visit Type Treatment Note Visit Note New year Visit Start Time 12:15 Visit Stop Time 12:55 Total Visit Minutes 40 Visit Number 2/unlimited Precautions Precautions Falls, history of orthostasis and a-fib, pt takes Warfarin PT-OP-B Current Condition Start: 05/07/19 12:10 Freq: Status: Active Protocol: Document 05/07/19 12:18 MB (Rec: 05/07/19 12:48 MB [id number]) Current Condition History of Current Condition Onset Date 03/14 History of Current Condition Onset of back pain when catching right foot on edge of tub causing left foot to skid on tile. He grabbed rail on left side and then reached around with right hand also grabbed the rail. He pulled himself upright. He had to drag his right leg across the bathtub. Pt had increased LBP with ride from [employer] this date. His pain is 6.5/10 with attempted 6MWT this date and so stopped. Pt reports pain and burning in the back of his legs. Further pain ratings: at their worse, LBP is 8/10, proximal LE pain is 7/10 and left heel pain is 5/10, right ankle 4/10. Pain is occ worse when up. PMH: orthostasis, PTSD, a-fib, Warfarin, falls, right ankle fracture, CA, sleep apnea and has CPAP, morbid obesity, lymphedema, dizziness and BPPV cleared by PT, memory loss. Prior Treatments and Tests OPPT Treatment Goals Patient/Caregiver Goals Decreased pain and increased mobility. He has not been going to [facility] regularly d/t pain and decreased mobility and he wants to get back to [facility]. Personal Factors Other Personal Factors That May Effect PTSD, long commute with Therapy/Recovery increased back pain with commute, history orthostasis and near-syncope PT-OP-C Subjective Start: 05/07/19 12:10 Freq: Status: Active Protocol: Document 07/16/19 12:15 MB (Rec: 07/16/19 12:57 MB [id number]) OP-PT Subjective Patient Comments Patient Comments Pt has had a little trouble with his back that he thinks is arthritis. PT-OP-G Mobility & Gait Start: 05/07/19 12:10 Freq: Status: Active Protocol: Document 05/07/19 12:18 MB (Rec: 05/07/19 15:52 MB [id number]) OP Gait Assessment Comments Gait Comments Forward, flexed posture with use of his bariatric RW with tray. Decreased step-length and foot clearance and pt winces with pain after 112' gait and reports 6.5/10 LBP and so 6MWT stopped. He was able to walk this distance in 80 sec. PT-OP-M Strength Start: 05/07/19 12:10 Freq: Status: Active Protocol: Document 05/07/19 12:18 MB (Rec: 05/07/19 15:52 MB [id number]) Hip Strength Hip Manual Muscle Testing Left Flexion (L2) 2- Poor- Right Flexion (L2) 2- Poor- Comments Pt is unable to clear thigh off bench Knee Strength Knee Manual Muscle Testing Left Extension (L3) 3 Fair Comments Pt is unable to clear his foot back in sitting to assess knee flexion. Right Extension (L3) 3 Fair Comments Pt is unable to clear his foot back in sitting to assess knee flexion. Ankle/Foot Strength Ankle and Foot Manual Muscle Testing Left Dorsiflexion (L4) 4 Good Plantarflexion (S1) 4 Good Comments Great toe extension left 4/5 Right Dorsiflexion (L4) 4 Good Plantarflexion (S1) 3 Fair Comments Great toe extension right 3+/5 PT-OP-Q Treatments Start: 05/07/19 12:10 Freq: Status: Active Protocol: Document 07/16/19 12:15 MB (Rec: 07/16/19 12:57 MB [id number]) Cardio Equipment Upper Body Ergometer (UBE) Duration (Minutes) 5 Therapeutic Exercises Sitting Exercises Shoulder flexion Comments 10 reps in sitting and pt to con't at home Pelvic tilt and abdominal drawing in Comments 3 reps and pt to con't daily at home Scapular retraction Comments 3 reps hold 5 sec and pt to con't daily Sit to stands without UE support Comments reps in 30 sec: 9 full reps Diaphragmatic breathing Comments 3 reps in sitting and pt to con't at home Standing Exercises Calf stretches Comments 1 rep each leg, pt standing at walker, to con't at home Mini squat Comments Pt to go 1/4 way down, went too far and had back pain today Side stepping with band Comments Level 1 band side stepping and pt to con't at home, cues for upright postur Hip extension and abduction with level 1 band Comments 5 reps B, alternating legs and pt to perform at home PT-OP-T Assessment and Plan Start: 05/07/19 12:10 Freq: Status: Active Protocol: Document 07/16/19 12:15 MB (Rec: 07/16/19 12:57 MB [id number]) Physical Therapy Assessment Rehab Potential Rehabilitation Potential Fair Evaluation Complexity Number of Personal Factors/Comorbidities 1-2 Number of Body Systems Impaired 3 Clinical Presentation at Evaluation Unstable Impairments Impairments Activity Tolerance,Balance, Edema,Functional Activities, Functional Mobility,Gait, Integument,Pain,Posture,ROM, Sensation,Soft Tissue Mobility ,Strength Other Impairments Pt presents with decreased sensation to light touch in his posterior LEs and feet. Goals 5 Stitcher Tape Controlled Machine Goal (LTG) Pt will gait train 700 feet with LRAD in 6 minutes to improve community distance ambulation by 09/02/2019. 07/02/2019: Pt is able to gait train 492' with RW in 5 minutes LTG Duration 8 weeks 4 Impairment Inability to perform sit to stand on al without UE support Care Home Goal (LTG) Pt will perform 15 reps sit to stand without UE support in 30 sec to improve functional I by 09/02/2019. 07/02/2019: 10 reps in 30 sec LTG Duration 8 weeks 3 Stitcher Tape Controlled Machine Goal (LTG) Pt will perform progressive HEP with I including flexibility, strengthening, gait and balance exercises to increase functional mobility by 09/02/2019. 07/02/2019: Pt has been performing mini squats, shoulder blade squeezes, cervical rotation, LAQs with APs, tapping at home LTG Duration 8 weeks 2 Care Home Goal (LTG) Pt will deny falls for 2 months to decrease injury risk by 09/02/2019. 07/02/2019: Pt reports he got his foot caught in the sheet and he fell on his knee and hands on rug 06/30/2019. LTG Duration 8 weeks 1 Care Home Goal (LTG) Pt will present with an improved Oswestry LBP scale score to reflect no more than 30% impairment by 08/31/2019. 07/02/2019: Pt presents with Oswestry LBP score reflecting 52% impairment LTG Duration 8 weeks Assessment Summary Assessment Reviewed previous HEP. Pt is able to perform all exercises, con't to encourage compliance . Review lymphedema range exercises in future treatment dates to help with balance, leg strength and history of leg swelling. Physical Therapy Plan Frequency and Duration Frequency of Treatment 2x/Week Duration of Treatment 8 weeks Plan of Care Start Date 07/02/19 Plan of Care End Date 09/02/19 Therapeutic Interventions Therapeutic Interventions Balance Training,Canalithic Repositioning,Gait Training, Home Exercise Program,Manual Therapy,Neuromuscular Re- education,Patient/Caregiver Education,Self-Care/Home Management,Sensory Integration ,Soft Tissue Mobilization, Taping,Therapeutic Activities, Therapeutic Exercises Next Visit Focus/Plan Next Note Type Treatment Note Next Visit Plan Con't to progress HEP, gait and balance exercises
--- NOTE | 2019-07-23 11:54 | PT.OTN ---
Current Diagnoses Low back pain (07/23/19) Physical Therapy Treatment Note PT-OP-A Visit Information Start: 05/07/19 12:10 Freq: Status: Active Protocol: Document 07/23/19 11:15 MB (Rec: 07/23/19 11:54 MB [id number]) Out-Patient Physical Therapy Visit Information Visit Information Visit Type Treatment Note Visit Note New year, Medicare and no KX modifier Visit Start Time 11:15 Visit Stop Time 11:53 Total Visit Minutes 38 Visit Number 3/unlimited Precautions Precautions Falls, history of orthostasis and a-fib, pt takes Warfarin PT-OP-B Current Condition Start: 05/07/19 12:10 Freq: Status: Active Protocol: Document 05/07/19 12:18 MB (Rec: 05/07/19 12:48 MB [id number]) Current Condition History of Current Condition Onset Date 03/14 History of Current Condition Onset of back pain when catching right foot on edge of tub causing left foot to skid on tile. He grabbed rail on left side and then reached around with right hand also grabbed the rail. He pulled himself upright. He had to drag his right leg across the bathtub. Pt had increased LBP with ride from [employer] this date. His pain is 6.5/10 with attempted 6MWT this date and so stopped. Pt reports pain and burning in the back of his legs. Further pain ratings: at their worse, LBP is 8/10, proximal LE pain is 7/10 and left heel pain is 5/10, right ankle 4/10. Pain is occ worse when up. PMH: orthostasis, PTSD, a-fib, Warfarin, falls, right ankle fracture, CA, sleep apnea and has CPAP, morbid obesity, lymphedema, dizziness and BPPV cleared by PT, memory loss. Prior Treatments and Tests OPPT Treatment Goals Patient/Caregiver Goals Decreased pain and increased mobility. He has not been going to [employer] regularly d/t pain and decreased mobility and he wants to get back to [employer]. Personal Factors Other Personal Factors That May Effect PTSD, long commute with Therapy/Recovery increased back pain with commute, history orthostasis and near-syncope PT-OP-C Subjective Start: 05/07/19 12:10 Freq: Status: Active Protocol: Document 07/23/19 11:15 MB (Rec: 07/23/19 11:54 MB [id number]) OP-PT Subjective Patient Comments Patient Comments Pt reports increased back after picking up a girl while sitting in a pew. He reached back to the left, lifiting child over the pew to his left side. Pt had a positive stool screen for colon CA. He has a history of colon CA and states the testing might be a false positive. He needs to have an colonoscopy. PT-OP-G Mobility & Gait Start: 05/07/19 12:10 Freq: Status: Active Protocol: Document 05/07/19 12:18 MB (Rec: 05/07/19 15:52 MB [id number]) OP Gait Assessment Comments Gait Comments Forward, flexed posture with use of his bariatric RW with tray. Decreased step-length and foot clearance and pt winces with pain after 112' gait and reports 6.5/10 LBP and so 6MWT stopped. He was able to walk this distance in 80 sec. PT-OP-M Strength Start: 05/07/19 12:10 Freq: Status: Active Protocol: Document 05/07/19 12:18 MB (Rec: 05/07/19 15:52 MB [id number]) Hip Strength Hip Manual Muscle Testing Left Flexion (L2) 2- Poor- Right Flexion (L2) 2- Poor- Comments Pt is unable to clear thigh off bench Knee Strength Knee Manual Muscle Testing Left Extension (L3) 3 Fair Comments Pt is unable to clear his foot back in sitting to assess knee flexion. Right Extension (L3) 3 Fair Comments Pt is unable to clear his foot back in sitting to assess knee flexion. Ankle/Foot Strength Ankle and Foot Manual Muscle Testing Left Dorsiflexion (L4) 4 Good Plantarflexion (S1) 4 Good Comments Great toe extension left 4/5 Right Dorsiflexion (L4) 4 Good Plantarflexion (S1) 3 Fair Comments Great toe extension right 3+/5 PT-OP-Q Treatments Start: 05/07/19 12:10 Freq: Status: Active Protocol: Document 07/23/19 11:15 MB (Rec: 07/23/19 11:54 MB [id number]) Cardio Equipment Upper Body Ergometer (UBE) Duration (Minutes) 10 Other Forward and back 5' each Therapeutic Exercises Sitting Exercises LE Lymphedema exercise Comments Initiated in sitting 5-10 reps ; performed these in stand: scap ret. No SB PT-OP-T Assessment and Plan Start: 05/07/19 12:10 Freq: Status: Active Protocol: Document 07/23/19 11:15 MB (Rec: 07/23/19 11:54 MB [id number]) Physical Therapy Assessment Rehab Potential Rehabilitation Potential Fair Evaluation Complexity Number of Personal Factors/Comorbidities 1-2 Number of Body Systems Impaired 3 Clinical Presentation at Evaluation Unstable Impairments Impairments Activity Tolerance,Balance, Edema,Functional Activities, Functional Mobility,Gait, Integument,Pain,Posture,ROM, Sensation,Soft Tissue Mobility ,Strength Other Impairments Pt presents with decreased sensation to light touch in his posterior LEs and feet. Goals 5 Usp Goal (LTG) Pt will gait train 700 feet with LRAD in 6 minutes to improve community distance ambulation by 09/02/2019. 07/02/2019: Pt is able to gait train 492' with RW in 5 minutes LTG Duration 8 weeks 4 Impairment Inability to perform sit to stand on eval without UE support Transportation Director Goal (LTG) Pt will perform 15 reps sit to stand without UE support in 30 sec to improve functional I by 09/02/2019. 07/02/2019: 10 reps in 30 sec LTG Duration 8 weeks 3 Usp Goal (LTG) Pt will perform progressive HEP with I including flexibility, strengthening, gait and balance exercises to increase functional mobility by 09/02/2019. 07/02/2019: Pt has been performing mini squats, shoulder blade squeezes, cervical rotation, LAQs with APs, tapping at home LTG Duration 8 weeks 2 Transportation Director Goal (LTG) Pt will deny falls for 2 months to decrease injury risk by 09/02/2019. 07/02/2019: Pt reports he got his foot caught in the sheet and he fell on his knee and hands on rug 06/30/2019. LTG Duration 8 weeks 1 Usp Goal (LTG) Pt will present with an improved Oswestry LBP scale score to reflect no more than 30% impairment by 08/31/2019. 07/02/2019: Pt presents with Oswestry LBP score reflecting 52% impairment LTG Duration 8 weeks Assessment Summary Assessment Reviewed lymphedema range of motion exercises today. First 6 exercises sitting, deferred SB, standing hip extension, knne bend, ankle pumps in sitting. Pt with increased back pain up to 5.5/10 today after lifting child at [employer] on Monday. Physical Therapy Plan Frequency and Duration Frequency of Treatment 2x/Week Duration of Treatment 8 weeks Plan of Care Start Date 07/02/19 Plan of Care End Date 09/02/19 Therapeutic Interventions Therapeutic Interventions Balance Training,Canalithic Repositioning,Gait Training, Home Exercise Program,Manual Therapy,Neuromuscular Re- education,Patient/Caregiver Education,Self-Care/Home Management,Sensory Integration ,Soft Tissue Mobilization, Taping,Therapeutic Activities, Therapeutic Exercises Next Visit Focus/Plan Next Note Type Treatment Note Next Visit Plan Con't to progress HEP, gait and balance exercises
--- NOTE | 2019-07-25 11:58 | PT.OTN ---
Current Diagnoses Low back pain (07/25/19) Physical Therapy Treatment Note PT-OP-A Visit Information Start: 05/07/19 12:10 Freq: Status: Active Protocol: Document 07/25/19 11:16 MB (Rec: 07/25/19 11:53 MB [id number]) Out-Patient Physical Therapy Visit Information Visit Information Visit Type Treatment Note Visit Note New year, Medicare and no KX modifier Visit Start Time 11:16 Visit Stop Time 12:56 Total Visit Minutes 40 Visit Number 4/unlimited Precautions Precautions Falls, history of orthostasis and a-fib, pt takes Warfarin PT-OP-B Current Condition Start: 05/07/19 12:10 Freq: Status: Active Protocol: Document 05/07/19 12:18 MB (Rec: 05/07/19 12:48 MB [id number]) Current Condition History of Current Condition Onset Date 03/14 History of Current Condition Onset of back pain when catching right foot on edge of tub causing left foot to skid on tile. He grabbed rail on left side and then reached around with right hand also grabbed the rail. He pulled himself upright. He had to drag his right leg across the bathtub. Pt had increased LBP with ride from [place] this date. His pain is 6.5/10 with attempted 6MWT this date and so stopped. Pt reports pain and burning in the back of his legs. Further pain ratings: at their worse, LBP is 8/10, proximal LE pain is 7/10 and left heel pain is 5/10, right ankle 4/10. Pain is occ worse when up. PMH: orthostasis, PTSD, a-fib, Warfarin, falls, right ankle fracture, CA, sleep apnea and has CPAP, morbid obesity, lymphedema, dizziness and BPPV cleared by PT, memory loss. Prior Treatments and Tests OPPT Treatment Goals Patient/Caregiver Goals Decreased pain and increased mobility. He has not been going to [facility] regularly d/t pain and decreased mobility and he wants to get back to [facility]. Personal Factors Other Personal Factors That May Effect PTSD, long commute with Therapy/Recovery increased back pain with commute, history orthostasis and near-syncope PT-OP-C Subjective Start: 05/07/19 12:10 Freq: Status: Active Protocol: Document 07/25/19 11:16 MB (Rec: 07/25/19 11:53 MB [id number]) OP-PT Subjective Patient Comments Patient Comments Pt states that his INR is good and was 2.4 last time it was checked. He has 2/10 back pain which is normal for him after riding in car. Pt states that he started IV chemo yesterday for colon CA. It is precautionary for possible aggressive CA. He has to go to [facility] once a week for treatment. PT-OP-G Mobility & Gait Start: 05/07/19 12:10 Freq: Status: Active Protocol: Document 05/07/19 12:18 MB (Rec: 05/07/19 15:52 MB [id number]) OP Gait Assessment Comments Gait Comments Forward, flexed posture with use of his bariatric RW with tray. Decreased step-length and foot clearance and pt winces with pain after 112' gait and reports 6.5/10 LBP and so 6MWT stopped. He was able to walk this distance in 80 sec. PT-OP-M Strength Start: 05/07/19 12:10 Freq: Status: Active Protocol: Document 05/07/19 12:18 MB (Rec: 05/07/19 15:52 MB [id number]) Hip Strength Hip Manual Muscle Testing Left Flexion (L2) 2- Poor- Right Flexion (L2) 2- Poor- Comments Pt is unable to clear thigh off bench Knee Strength Knee Manual Muscle Testing Left Extension (L3) 3 Fair Comments Pt is unable to clear his foot back in sitting to assess knee flexion. Right Extension (L3) 3 Fair Comments Pt is unable to clear his foot back in sitting to assess knee flexion. Ankle/Foot Strength Ankle and Foot Manual Muscle Testing Left Dorsiflexion (L4) 4 Good Plantarflexion (S1) 4 Good Comments Great toe extension left 4/5 Right Dorsiflexion (L4) 4 Good Plantarflexion (S1) 3 Fair Comments Great toe extension right 3+/5 PT-OP-Q Treatments Start: 05/07/19 12:10 Freq: Status: Active Protocol: Document 07/25/19 11:16 MB (Rec: 07/25/19 11:53 MB [id number]) Cardio Equipment Upper Body Ergometer (UBE) Duration (Minutes) 10 Other Forward and back 5' each Therapeutic Exercises Sitting Exercises LE Lymphedema exercise Comments Initiated in sitting 5-10 reps ; performed these in stand: scap ret. No SB Ball kicking Comments 5' today and cues to lift feet and touch top of ball to mimic pedal PT-OP-T Assessment and Plan Start: 05/07/19 12:10 Freq: Status: Active Protocol: Document 07/25/19 11:16 MB (Rec: 07/25/19 11:53 MB [id number]) Physical Therapy Assessment Rehab Potential Rehabilitation Potential Fair Evaluation Complexity Number of Personal Factors/Comorbidities 1-2 Number of Body Systems Impaired 3 Clinical Presentation at Evaluation Unstable Impairments Impairments Activity Tolerance,Balance, Edema,Functional Activities, Functional Mobility,Gait, Integument,Pain,Posture,ROM, Sensation,Soft Tissue Mobility ,Strength Other Impairments Pt presents with decreased sensation to light touch in his posterior LEs and feet. Goals 5 Fpc Goal (LTG) Pt will gait train 700 feet with LRAD in 6 minutes to improve community distance ambulation by 09/02/2019. 07/02/2019: Pt is able to gait train 492' with RW in 5 minutes LTG Duration 8 weeks 4 Impairment Inability to perform sit to stand on eval date without UE support Fpc Goal (LTG) Pt will perform 15 reps sit to stand without UE support in 30 sec to improve functional I by 09/02/2019. 07/02/2019: 10 reps in 30 sec LTG Duration 8 weeks 3 Fpc Goal (LTG) Pt will perform progressive HEP with I including flexibility, strengthening, gait and balance exercises to increase functional mobility by 09/02/2019. 07/02/2019: Pt has been performing mini squats, shoulder blade squeezes, cervical rotation, LAQs with APs, tapping at home LTG Duration 8 weeks 2 Fpc Goal (LTG) Pt will deny falls for 2 months to decrease injury risk by 09/02/2019. 07/02/2019: Pt reports he got his foot caught in the sheet and he fell on his knee and hands on rug 06/30/2019. LTG Duration 8 weeks 1 Air Tank Assembler Goal (LTG) Pt will present with an improved Oswestry LBP scale score to reflect no more than 30% impairment by 08/31/2019. 07/02/2019: Pt presents with Oswestry LBP score reflecting 52% impairment LTG Duration 8 weeks Assessment Summary Assessment Pt presents peaked today after chemo treatment yesterday, car ride to [place]. Will con't to progress PT as tolerated. Pt requires many rest breaks today. Physical Therapy Plan Frequency and Duration Frequency of Treatment 2x/Week Duration of Treatment 8 weeks Plan of Care Start Date 07/02/19 Plan of Care End Date 09/02/19 Therapeutic Interventions Therapeutic Interventions Balance Training,Canalithic Repositioning,Gait Training, Home Exercise Program,Manual Therapy,Neuromuscular Re- education,Patient/Caregiver Education,Self-Care/Home Management,Sensory Integration ,Soft Tissue Mobilization, Taping,Therapeutic Activities, Therapeutic Exercises Next Visit Focus/Plan Next Note Type Treatment Note Next Visit Plan Con't to progress HEP, gait and balance exercises
--- NOTE | 2019-07-30 16:42 | PT.OTN ---
Current Diagnoses Low back pain (07/30/19) Physical Therapy Treatment Note PT-OP-A Visit Information Start: 05/07/19 12:10 Freq: Status: Active Protocol: Document 07/30/19 16:00 MB (Rec: 07/30/19 16:42 MB [id number]) Out-Patient Physical Therapy Visit Information Visit Information Visit Type Treatment Note Visit Note New year, Medicare and no KX modifier Visit Start Time 16:00 Visit Stop Time 16:42 Total Visit Minutes 42 Visit Number 5/unlimited Precautions Precautions Falls, history of orthostasis and a-fib, pt takes Warfarin PT-OP-B Current Condition Start: 05/07/19 12:10 Freq: Status: Active Protocol: Document 05/07/19 12:18 MB (Rec: 05/07/19 12:48 MB [id number]) Current Condition History of Current Condition Onset Date 03/14 History of Current Condition Onset of back pain when catching right foot on edge of tub causing left foot to skid on tile. He grabbed rail on left side and then reached around with right hand also grabbed the rail. He pulled himself upright. He had to drag his right leg across the bathtub. Pt had increased LBP with ride from [place] this date. His pain is 6.5/10 with attempted 6MWT this date and so stopped. Pt reports pain and burning in the back of his legs. Further pain ratings: at their worse, LBP is 8/10, proximal LE pain is 7/10 and left heel pain is 5/10, right ankle 4/10. Pain is occ worse when up. PMH: orthostasis, PTSD, a-fib, Warfarin, falls, right ankle fracture, CA, sleep apnea and has CPAP, morbid obesity, lymphedema, dizziness and BPPV cleared by PT, memory loss. Prior Treatments and Tests OPPT Treatment Goals Patient/Caregiver Goals Decreased pain and increased mobility. He has not been going to taoist regularly d/t pain and decreased mobility and he wants to get back to taoist. Personal Factors Other Personal Factors That May Effect PTSD, long commute with Therapy/Recovery increased back pain with commute, history orthostasis and near-syncope PT-OP-C Subjective Start: 05/07/19 12:10 Freq: Status: Active Protocol: Document 07/30/19 16:00 MB (Rec: 07/30/19 16:42 MB [id number]) OP-PT Subjective Patient Comments Patient Comments Pt has not had his INR checked this date. He has chemo treatment tomorrow. PT-OP-G Mobility & Gait Start: 05/07/19 12:10 Freq: Status: Active Protocol: Document 05/07/19 12:18 MB (Rec: 05/07/19 15:52 MB [id number]) OP Gait Assessment Comments Gait Comments Forward, flexed posture with use of his bariatric RW with tray. Decreased step-length and foot clearance and pt winces with pain after 112' gait and reports 6.5/10 LBP and so 6MWT stopped. He was able to walk this distance in 80 sec. PT-OP-M Strength Start: 05/07/19 12:10 Freq: Status: Active Protocol: Document 05/07/19 12:18 MB (Rec: 05/07/19 15:52 MB [id number]) Hip Strength Hip Manual Muscle Testing Left Flexion (L2) 2- Poor- Right Flexion (L2) 2- Poor- Comments Pt is unable to clear thigh off bench Knee Strength Knee Manual Muscle Testing Left Extension (L3) 3 Fair Comments Pt is unable to clear his foot back in sitting to assess knee flexion. Right Extension (L3) 3 Fair Comments Pt is unable to clear his foot back in sitting to assess knee flexion. Ankle/Foot Strength Ankle and Foot Manual Muscle Testing Left Dorsiflexion (L4) 4 Good Plantarflexion (S1) 4 Good Comments Great toe extension left 4/5 Right Dorsiflexion (L4) 4 Good Plantarflexion (S1) 3 Fair Comments Great toe extension right 3+/5 PT-OP-Q Treatments Start: 05/07/19 12:10 Freq: Status: Active Protocol: Document 07/30/19 16:00 MB (Rec: 07/30/19 16:42 MB [id number]) Cardio Equipment Upper Body Ergometer (UBE) Duration (Minutes) 12 Other Forward and back 6' each Therapeutic Exercises Sitting Exercises Sit to stands without UE support Comments 30 sec 9 reps Diaphragmatic breathing Comments Performed after gait during pain Ball kicking Comments 5' today and cues to lift feet and touch top of ball to mimic pedal Gait Training Gait Activity 6MWT Comments 260' in 2.5 minutes today, pt using his RW. Back pain up to 6.5/10 and he had to stop gait PT-OP-T Assessment and Plan Start: 05/07/19 12:10 Freq: Status: Active Protocol: Document 07/30/19 16:00 MB (Rec: 07/30/19 16:42 MB [id number]) Physical Therapy Assessment Rehab Potential Rehabilitation Potential Fair Evaluation Complexity Number of Personal Factors/Comorbidities 1-2 Number of Body Systems Impaired 3 Clinical Presentation at Evaluation Unstable Impairments Impairments Activity Tolerance,Balance, Edema,Functional Activities, Functional Mobility,Gait, Integument,Pain,Posture,ROM, Sensation,Soft Tissue Mobility ,Strength Other Impairments Pt presents with decreased sensation to light touch in his posterior LEs and feet. Goals 5 Shelter Goal (LTG) Pt will gait train 700 feet with LRAD in 6 minutes to improve community distance ambulation by 09/02/2019. 07/02/2019: Pt is able to gait train 492' with RW in 5 minutes LTG Duration 8 weeks 4 Impairment Inability to perform sit to stand on eval date without UE support Conference Services Coordinator Goal (LTG) Pt will perform 15 reps sit to stand without UE support in 30 sec to improve functional I by 09/02/2019. 07/02/2019: 10 reps in 30 sec LTG Duration 8 weeks 3 Shelter Goal (LTG) Pt will perform progressive HEP with I including flexibility, strengthening, gait and balance exercises to increase functional mobility by 09/02/2019. 07/02/2019: Pt has been performing mini squats, shoulder blade squeezes, cervical rotation, LAQs with APs, tapping at home LTG Duration 8 weeks 2 Conference Services Coordinator Goal (LTG) Pt will deny falls for 2 months to decrease injury risk by 09/02/2019. 07/02/2019: Pt reports he got his foot caught in the sheet and he fell on his knee and hands on rug 06/30/2019. LTG Duration 8 weeks 1 Shelter Goal (LTG) Pt will present with an improved Oswestry LBP scale score to reflect no more than 30% impairment by 08/31/2019. 07/02/2019: Pt presents with Oswestry LBP score reflecting 52% impairment LTG Duration 8 weeks Assessment Summary Assessment Initiated 6MWT today and he had to stop d/t increasing back pain. Con't to progress exercises. Physical Therapy Plan Frequency and Duration Frequency of Treatment 2x/Week Duration of Treatment 8 weeks Plan of Care Start Date 07/02/19 Plan of Care End Date 09/02/19 Therapeutic Interventions Therapeutic Interventions Balance Training,Canalithic Repositioning,Gait Training, Home Exercise Program,Manual Therapy,Neuromuscular Re- education,Patient/Caregiver Education,Self-Care/Home Management,Sensory Integration ,Soft Tissue Mobilization, Taping,Therapeutic Activities, Therapeutic Exercises Next Visit Focus/Plan Next Note Type Treatment Note Next Visit Plan Con't to progress HEP, gait and balance exercises
--- NOTE | 2019-08-02 12:56 | PT.OTN ---
Current Diagnoses Low back pain (08/02/19) Physical Therapy Treatment Note PT-OP-A Visit Information Start: 05/07/19 12:10 Freq: Status: Active Protocol: Document 08/02/19 12:18 MB (Rec: 08/02/19 12:54 MB [id number]) Out-Patient Physical Therapy Visit Information Visit Information Visit Type Treatment Note Visit Note New year, Medicare and no KX modifier Shortened treatment today d/t symptoms Visit Start Time 12:18 Visit Stop Time 12:37 Total Visit Minutes 25 Visit Number 6/unlimited Precautions Precautions Falls, history of orthostasis and a-fib, pt takes Warfarin PT-OP-B Current Condition Start: 05/07/19 12:10 Freq: Status: Active Protocol: Document 05/07/19 12:18 MB (Rec: 05/07/19 12:48 MB [id number]) Current Condition History of Current Condition Onset Date 03/14 History of Current Condition Onset of back pain when catching right foot on edge of tub causing left foot to skid on tile. He grabbed rail on left side and then reached around with right hand also grabbed the rail. He pulled himself upright. He had to drag his right leg across the bathtub. Pt had increased LBP with ride from [place] this date. His pain is 6.5/10 with attempted 6MWT this date and so stopped. Pt reports pain and burning in the back of his legs. Further pain ratings: at their worse, LBP is 8/10, proximal LE pain is 7/10 and left heel pain is 5/10, right ankle 4/10. Pain is occ worse when up. PMH: orthostasis, PTSD, a-fib, Warfarin, falls, right ankle fracture, CA, sleep apnea and has CPAP, morbid obesity, lymphedema, dizziness and BPPV cleared by PT, memory loss. Prior Treatments and Tests OPPT Treatment Goals Patient/Caregiver Goals Decreased pain and increased mobility. He has not been going to tenri[employer] regularly d/t pain and decreased mobility and he wants to get back to tenriism. Personal Factors Other Personal Factors That May Effect PTSD, long commute with Therapy/Recovery increased back pain with commute, history orthostasis and near-syncope PT-OP-C Subjective Start: 05/07/19 12:10 Freq: Status: Active Protocol: Document 08/02/19 12:18 MB (Rec: 08/02/19 12:54 MB [id number]) OP-PT Subjective Patient Comments Patient Comments Pt states that he is doing okay today. He will not be able to come to therapy the day after President's Day d/t having colonoscopy. PT-OP-G Mobility & Gait Start: 05/07/19 12:10 Freq: Status: Active Protocol: Document 05/07/19 12:18 MB (Rec: 05/07/19 15:52 MB [id number]) OP Gait Assessment Comments Gait Comments Forward, flexed posture with use of his bariatric RW with tray. Decreased step-length and foot clearance and pt winces with pain after 112' gait and reports 6.5/10 LBP and so 6MWT stopped. He was able to walk this distance in 80 sec. PT-OP-M Strength Start: 05/07/19 12:10 Freq: Status: Active Protocol: Document 05/07/19 12:18 MB (Rec: 05/07/19 15:52 MB [id number]) Hip Strength Hip Manual Muscle Testing Left Flexion (L2) 2- Poor- Right Flexion (L2) 2- Poor- Comments Pt is unable to clear thigh off bench Knee Strength Knee Manual Muscle Testing Left Extension (L3) 3 Fair Comments Pt is unable to clear his foot back in sitting to assess knee flexion. Right Extension (L3) 3 Fair Comments Pt is unable to clear his foot back in sitting to assess knee flexion. Ankle/Foot Strength Ankle and Foot Manual Muscle Testing Left Dorsiflexion (L4) 4 Good Plantarflexion (S1) 4 Good Comments Great toe extension left 4/5 Right Dorsiflexion (L4) 4 Good Plantarflexion (S1) 3 Fair Comments Great toe extension right 3+/5 PT-OP-Q Treatments Start: 05/07/19 12:10 Freq: Status: Active Protocol: Document 08/02/19 12:18 MB (Rec: 08/02/19 12:54 MB [id number]) Cardio Equipment Upper Body Ergometer (UBE) Duration (Minutes) 10 Other Forward and backwards, 5' each , break between Therapeutic Exercises Sitting Exercises Pursed-lip breathing Comments Performed after gait once sitting Cervical rotation and nods sitting upright Comments Pt reports popping PT-OP-T Assessment and Plan Start: 05/07/19 12:10 Freq: Status: Active Protocol: Document 08/02/19 12:18 MB (Rec: 08/02/19 12:54 MB [id number]) Physical Therapy Assessment Rehab Potential Rehabilitation Potential Fair Evaluation Complexity Number of Personal Factors/Comorbidities 1-2 Number of Body Systems Impaired 3 Clinical Presentation at Evaluation Unstable Impairments Impairments Activity Tolerance,Balance, Edema,Functional Activities, Functional Mobility,Gait, Integument,Pain,Posture,ROM, Sensation,Soft Tissue Mobility ,Strength Other Impairments Pt presents with decreased sensation to light touch in his posterior LEs and feet. Goals 5 Real Estate Legal Secretary Goal (LTG) Pt will gait train 700 feet with LRAD in 6 minutes to improve community distance ambulation by 09/02/2019. 07/02/2019: Pt is able to gait train 492' with RW in 5 minutes LTG Duration 8 weeks 4 Impairment Inability to perform sit to stand on eval date without UE support Senior Living Goal (LTG) Pt will perform 15 reps sit to stand without UE support in 30 sec to improve functional I by 09/02/2019. 07/02/2019: 10 reps in 30 sec LTG Duration 8 weeks 3 Senior Living Goal (LTG) Pt will perform progressive HEP with I including flexibility, strengthening, gait and balance exercises to increase functional mobility by 09/02/2019. 07/02/2019: Pt has been performing mini squats, shoulder blade squeezes, cervical rotation, LAQs with APs, tapping at home LTG Duration 8 weeks 2 Senior Living Goal (LTG) Pt will deny falls for 2 months to decrease injury risk by 09/02/2019. 07/02/2019: Pt reports he got his foot caught in the sheet and he fell on his knee and hands on rug 06/30/2019. LTG Duration 8 weeks 1 Senior Living Goal (LTG) Pt will present with an improved Oswestry LBP scale score to reflect no more than 30% impairment by 08/31/2019. 07/02/2019: Pt presents with Oswestry LBP score reflecting 52% impairment LTG Duration 8 weeks Assessment Summary Assessment Gait 110' with RW in gym and stops d/t pain today. Pt reports cramping across both scapulae and down both upper arms to elbows that is worse with arm bike and walking with walker that he feels is d/t putting weight through his arm . HR is unaccurate to palpation d/t a-fib. BP is unreadable on gym machine. Limited PT today d/t sxs. Pt respectfully declines going to the ED and states that he will go if he has increased pain at d/c. Physical Therapy Plan Frequency and Duration Frequency of Treatment 2x/Week Duration of Treatment 8 weeks Plan of Care Start Date 07/02/19 Plan of Care End Date 09/02/19 Therapeutic Interventions Therapeutic Interventions Balance Training,Canalithic Repositioning,Gait Training, Home Exercise Program,Manual Therapy,Neuromuscular Re- education,Patient/Caregiver Education,Self-Care/Home Management,Sensory Integration ,Soft Tissue Mobilization, Taping,Therapeutic Activities, Therapeutic Exercises Next Visit Focus/Plan Next Note Type Treatment Note Next Visit Plan Con't to progress HEP, gait and balance exercises as tolerates
--- NOTE | 2019-08-06 15:24 | PT.OTN ---
Current Diagnoses Low back pain (08/06/19) Physical Therapy Treatment Note PT-OP-A Visit Information Start: 05/07/19 12:10 Freq: Status: Active Protocol: Document 08/06/19 14:31 MB (Rec: 08/06/19 15:24 MB [id number]) Out-Patient Physical Therapy Visit Information Visit Information Visit Type Treatment Note Visit Note New year, Medicare and no KX modifier Shortened treatment today d/t symptoms Visit Start Time 14:31 Visit Stop Time 15:15 Total Visit Minutes 44 Visit Number 7/unlimited Precautions Precautions Falls, history of orthostasis and a-fib, pt takes Warfarin PT-OP-B Current Condition Start: 05/07/19 12:10 Freq: Status: Active Protocol: Document 05/07/19 12:18 MB (Rec: 05/07/19 12:48 MB [id number]) Current Condition History of Current Condition Onset Date 03/14 History of Current Condition Onset of back pain when catching right foot on edge of tub causing left foot to skid on tile. He grabbed rail on left side and then reached around with right hand also grabbed the rail. He pulled himself upright. He had to drag his right leg across the bathtub. Pt had increased LBP with ride from [place] this date. His pain is 6.5/10 with attempted 6MWT this date and so stopped. Pt reports pain and burning in the back of his legs. Further pain ratings: at their worse, LBP is 8/10, proximal LE pain is 7/10 and left heel pain is 5/10, right ankle 4/10. Pain is occ worse when up. PMH: orthostasis, PTSD, a-fib, Warfarin, falls, right ankle fracture, CA, sleep apnea and has CPAP, morbid obesity, lymphedema, dizziness and BPPV cleared by PT, memory loss. Prior Treatments and Tests OPPT Treatment Goals Patient/Caregiver Goals Decreased pain and increased mobility. He has not been going to pentecostalism regularly d/t pain and decreased mobility and he wants to get back to pentecostalism. Personal Factors Other Personal Factors That May Effect PTSD, long commute with Therapy/Recovery increased back pain with commute, history orthostasis and near-syncope PT-OP-C Subjective Start: 05/07/19 12:10 Freq: Status: Active Protocol: Document 08/06/19 14:31 MB (Rec: 08/06/19 15:24 MB [id number]) OP-PT Subjective Patient Comments Patient Comments Pt reports ongoing 6 hour pain near upper traps after last PT treatment and he thinks it was muscular and in the upper traps. He used a heating pad and muscle relaxant. PT-OP-G Mobility & Gait Start: 05/07/19 12:10 Freq: Status: Active Protocol: Document 05/07/19 12:18 MB (Rec: 05/07/19 15:52 MB [id number]) OP Gait Assessment Comments Gait Comments Forward, flexed posture with use of his bariatric RW with tray. Decreased step-length and foot clearance and pt winces with pain after 112' gait and reports 6.5/10 LBP and so 6MWT stopped. He was able to walk this distance in 80 sec. PT-OP-M Strength Start: 05/07/19 12:10 Freq: Status: Active Protocol: Document 05/07/19 12:18 MB (Rec: 05/07/19 15:52 MB [id number]) Hip Strength Hip Manual Muscle Testing Left Flexion (L2) 2- Poor- Right Flexion (L2) 2- Poor- Comments Pt is unable to clear thigh off bench Knee Strength Knee Manual Muscle Testing Left Extension (L3) 3 Fair Comments Pt is unable to clear his foot back in sitting to assess knee flexion. Right Extension (L3) 3 Fair Comments Pt is unable to clear his foot back in sitting to assess knee flexion. Ankle/Foot Strength Ankle and Foot Manual Muscle Testing Left Dorsiflexion (L4) 4 Good Plantarflexion (S1) 4 Good Comments Great toe extension left 4/5 Right Dorsiflexion (L4) 4 Good Plantarflexion (S1) 3 Fair Comments Great toe extension right 3+/5 PT-OP-Q Treatments Start: 05/07/19 12:10 Freq: Status: Active Protocol: Document 08/06/19 14:31 MB (Rec: 08/06/19 15:24 MB [id number]) Cardio Equipment Upper Body Ergometer (UBE) Duration (Minutes) 10 Other Forward and backwards, 5' each , break between Therapeutic Exercises Sitting Exercises Shoulder flexion Comments Shoulder flexion in sitting Sit to stands without UE support Comments 30 sec 9 reps; 30 sec 10 reps; 30 sec 10 reps Ball kicking Comments 10 reps x2 sets tow picker feet to tap ball for pedal PT-OP-T Assessment and Plan Start: 05/07/19 12:10 Freq: Status: Active Protocol: Document 08/06/19 14:31 MB (Rec: 08/06/19 15:24 MB [id number]) Physical Therapy Assessment Rehab Potential Rehabilitation Potential Fair Evaluation Complexity Number of Personal Factors/Comorbidities 1-2 Number of Body Systems Impaired 3 Clinical Presentation at Evaluation Unstable Impairments Impairments Activity Tolerance,Balance, Edema,Functional Activities, Functional Mobility,Gait, Integument,Pain,Posture,ROM, Sensation,Soft Tissue Mobility ,Strength Other Impairments Pt presents with decreased sensation to light touch in his posterior LEs and feet. Goals 5 Diesel Locomotive Engineer Goal (LTG) Pt will gait train 700 feet with LRAD in 6 minutes to improve community distance ambulation by 09/02/2019. 07/02/2019: Pt is able to gait train 492' with RW in 5 minutes LTG Duration 8 weeks 4 Impairment Inability to perform sit to stand on eval date without UE support Diesel Locomotive Engineer Goal (LTG) Pt will perform 15 reps sit to stand without UE support in 30 sec to improve functional I by 09/02/2019. 07/02/2019: 10 reps in 30 sec LTG Duration 8 weeks 3 Diesel Locomotive Engineer Goal (LTG) Pt will perform progressive HEP with I including flexibility, strengthening, gait and balance exercises to increase functional mobility by 09/02/2019. 07/02/2019: Pt has been performing mini squats, shoulder blade squeezes, cervical rotation, LAQs with APs, tapping at home LTG Duration 8 weeks 2 Senior Care Goal (LTG) Pt will deny falls for 2 months to decrease injury risk by 09/02/2019. 07/02/2019: Pt reports he got his foot caught in the sheet and he fell on his knee and hands on rug 06/30/2019. LTG Duration 8 weeks 1 Senior Care Goal (LTG) Pt will present with an improved Oswestry LBP scale score to reflect no more than 30% impairment by 08/31/2019. 07/02/2019: Pt presents with Oswestry LBP score reflecting 52% impairment LTG Duration 8 weeks Assessment Summary Assessment Pt requires rest breaks between exercises today. He will have a colonoscopy next week and possible ongoing chemo and this may contribute to weakness. Con't efforts. Physical Therapy Plan Frequency and Duration Frequency of Treatment 2x/Week Duration of Treatment 8 weeks Plan of Care Start Date 07/02/19 Plan of Care End Date 09/02/19 Therapeutic Interventions Therapeutic Interventions Balance Training,Canalithic Repositioning,Gait Training, Home Exercise Program,Manual Therapy,Neuromuscular Re- education,Patient/Caregiver Education,Self-Care/Home Management,Sensory Integration ,Soft Tissue Mobilization, Taping,Therapeutic Activities, Therapeutic Exercises Next Visit Focus/Plan Next Note Type Treatment Note Next Visit Plan Con't to progress HEP, gait and balance exercises as tolerates
--- NOTE | 2019-08-16 12:59 | PT.OTN ---
Current Diagnoses Low back pain (08/16/19) Physical Therapy Treatment Note PT-OP-A Visit Information Start: 05/07/19 12:10 Freq: Status: Active Protocol: Document 08/16/19 12:16 MB (Rec: 08/16/19 12:59 MB [id number]) Out-Patient Physical Therapy Visit Information Visit Information Visit Type Treatment Note Visit Note New year, Medicare and no KX modifier Visit Start Time 12:16 Visit Stop Time 12:59 Total Visit Minutes 43 Visit Number 8/unlimited Precautions Precautions Falls, history of orthostasis and a-fib, pt takes Warfarin PT-OP-B Current Condition Start: 05/07/19 12:10 Freq: Status: Active Protocol: Document 05/07/19 12:18 MB (Rec: 05/07/19 12:48 MB [id number]) Current Condition History of Current Condition Onset Date 03/14 History of Current Condition Onset of back pain when catching right foot on edge of tub causing left foot to skid on tile. He grabbed rail on left side and then reached around with right hand also grabbed the rail. He pulled himself upright. He had to drag his right leg across the bathtub. Pt had increased LBP with ride from [employer] this date. His pain is 6.5/10 with attempted 6MWT this date and so stopped. Pt reports pain and burning in the back of his legs. Further pain ratings: at their worse, LBP is 8/10, proximal LE pain is 7/10 and left heel pain is 5/10, right ankle 4/10. Pain is occ worse when up. PMH: orthostasis, PTSD, a-fib, Warfarin, falls, right ankle fracture, CA, sleep apnea and has CPAP, morbid obesity, lymphedema, dizziness and BPPV cleared by PT, memory loss. Prior Treatments and Tests OPPT Treatment Goals Patient/Caregiver Goals Decreased pain and increased mobility. He has not been going to [facility] regularly d/t pain and decreased mobility and he wants to get back to [facility]. Personal Factors Other Personal Factors That May Effect PTSD, long commute with Therapy/Recovery increased back pain with commute, history orthostasis and near-syncope PT-OP-C Subjective Start: 05/07/19 12:10 Freq: Status: Active Protocol: Document 08/16/19 12:16 MB (Rec: 08/16/19 12:59 MB [id number]) OP-PT Subjective Patient Comments Patient Comments Pt did not have chemo this week d/t colonoscopy on Monday . He had polyps that were removed and is awaiting biopsy report. He re-started his Warfarin and will have his INR checked next week. He has con't low BP. PT-OP-G Mobility & Gait Start: 05/07/19 12:10 Freq: Status: Active Protocol: Document 05/07/19 12:18 MB (Rec: 05/07/19 15:52 MB [id number]) OP Gait Assessment Comments Gait Comments Forward, flexed posture with use of his bariatric RW with tray. Decreased step-length and foot clearance and pt winces with pain after 112' gait and reports 6.5/10 LBP and so 6MWT stopped. He was able to walk this distance in 80 sec. PT-OP-M Strength Start: 05/07/19 12:10 Freq: Status: Active Protocol: Document 05/07/19 12:18 MB (Rec: 05/07/19 15:52 MB [id number]) Hip Strength Hip Manual Muscle Testing Left Flexion (L2) 2- Poor- Right Flexion (L2) 2- Poor- Comments Pt is unable to clear thigh off bench Knee Strength Knee Manual Muscle Testing Left Extension (L3) 3 Fair Comments Pt is unable to clear his foot back in sitting to assess knee flexion. Right Extension (L3) 3 Fair Comments Pt is unable to clear his foot back in sitting to assess knee flexion. Ankle/Foot Strength Ankle and Foot Manual Muscle Testing Left Dorsiflexion (L4) 4 Good Plantarflexion (S1) 4 Good Comments Great toe extension left 4/5 Right Dorsiflexion (L4) 4 Good Plantarflexion (S1) 3 Fair Comments Great toe extension right 3+/5 PT-OP-Q Treatments Start: 05/07/19 12:10 Freq: Status: Active Protocol: Document 08/16/19 12:16 MB (Rec: 08/16/19 12:59 MB [id number]) Therapeutic Exercises Sitting Exercises Basketball passes in sitting after light-headed Comments 20 reps in sitting, working on trunk motion Standing Exercises Basketball throws without support behind legs Comments 3 reps 20 passes Fencing with pool noodles Comments 3 reps, pt is able to forward step, trouble retropulsion improves 3 rep Gait Training Gait Activity 6MWT Comments 4 min 30 sec and 326 ft gait, pt cannot gait further d/t light-headedness PT-OP-T Assessment and Plan Start: 05/07/19 12:10 Freq: Status: Active Protocol: Document 08/16/19 12:16 MB (Rec: 08/16/19 12:59 MB [id number]) Physical Therapy Assessment Rehab Potential Rehabilitation Potential Fair Evaluation Complexity Number of Personal Factors/Comorbidities 1-2 Number of Body Systems Impaired 3 Clinical Presentation at Evaluation Unstable Impairments Impairments Activity Tolerance,Balance, Edema,Functional Activities, Functional Mobility,Gait, Integument,Pain,Posture,ROM, Sensation,Soft Tissue Mobility ,Strength Other Impairments Pt presents with decreased sensation to light touch in his posterior LEs and feet. Goals 5 Farm Specialist Goal (LTG) Pt will gait train 700 feet with LRAD in 6 minutes to improve community distance ambulation by 09/02/2019. 07/02/2019: Pt is able to gait train 492' with RW in 5 minutes LTG Duration 8 weeks 4 Impairment Inability to perform sit to stand on eval without UE support Farm Specialist Goal (LTG) Pt will perform 15 reps sit to stand without UE support in 30 sec to improve functional I by 09/02/2019. 07/02/2019: 10 reps in 30 sec LTG Duration 8 weeks 3 Farm Specialist Goal (LTG) Pt will perform progressive HEP with I including flexibility, strengthening, gait and balance exercises to increase functional mobility by 09/02/2019. 07/02/2019: Pt has been performing mini squats, shoulder blade squeezes, cervical rotation, LAQs with APs, tapping at home LTG Duration 8 weeks 2 Farm Specialist Goal (LTG) Pt will deny falls for 2 months to decrease injury risk by 09/02/2019. 07/02/2019: Pt reports he got his foot caught in the sheet and he fell on his knee and hands on rug 06/30/2019. LTG Duration 8 weeks 1 Farm Specialist Goal (LTG) Pt will present with an improved Oswestry LBP scale score to reflect no more than 30% impairment by 08/31/2019. 07/02/2019: Pt presents with Oswestry LBP score reflecting 52% impairment LTG Duration 8 weeks Assessment Summary Assessment Progressed balance exercises this date with fencing and basketball and pt tolerating several minute reps sets. Con' t progression. Pt has many medical issues going on and these complicate PT. He con't to require rest breaks but does have improved set. Physical Therapy Plan Frequency and Duration Frequency of Treatment 2x/Week Duration of Treatment 8 weeks Plan of Care Start Date 07/02/19 Plan of Care End Date 09/02/19 Therapeutic Interventions Therapeutic Interventions Balance Training,Canalithic Repositioning,Gait Training, Home Exercise Program,Manual Therapy,Neuromuscular Re- education,Patient/Caregiver Education,Self-Care/Home Management,Sensory Integration ,Soft Tissue Mobilization, Taping,Therapeutic Activities, Therapeutic Exercises Next Visit Focus/Plan Next Note Type Treatment Note Next Visit Plan Con't to progress HEP, gait and balance exercises as tolerates
--- NOTE | 2019-08-20 15:30 | PT.OTN ---
Current Diagnoses Low back pain (08/20/19) Physical Therapy Treatment Note PT-OP-A Visit Information Start: 05/07/19 12:10 Freq: Status: Active Protocol: Document 08/20/19 14:33 MB (Rec: 08/20/19 15:30 MB [id number]) Out-Patient Physical Therapy Visit Information Visit Information Visit Type Treatment Note Visit Note New year, Medicare and no KX modifier Visit Start Time 14:33 Visit Stop Time 15:15 Total Visit Minutes 42 Visit Number 9/unlimited Precautions Precautions Falls, history of orthostasis and a-fib, pt takes Warfarin PT-OP-B Current Condition Start: 05/07/19 12:10 Freq: Status: Active Protocol: Document 05/07/19 12:18 MB (Rec: 05/07/19 12:48 MB [id number]) Current Condition History of Current Condition Onset Date 03/14 History of Current Condition Onset of back pain when catching right foot on edge of tub causing left foot to skid on tile. He grabbed rail on left side and then reached around with right hand also grabbed the rail. He pulled himself upright. He had to drag his right leg across the bathtub. Pt had increased LBP with ride from [employer] this date. His pain is 6.5/10 with attempted 6MWT this date and so stopped. Pt reports pain and burning in the back of his legs. Further pain ratings: at their worse, LBP is 8/10, proximal LE pain is 7/10 and left heel pain is 5/10, right ankle 4/10. Pain is occ worse when up. PMH: orthostasis, PTSD, a-fib, Warfarin, falls, right ankle fracture, CA, sleep apnea and has CPAP, morbid obesity, lymphedema, dizziness and BPPV cleared by PT, memory loss. Prior Treatments and Tests OPPT Treatment Goals Patient/Caregiver Goals Decreased pain and increased mobility. He has not been going to [facility] regularly d/t pain and decreased mobility and he wants to get back to [facility]. Personal Factors Other Personal Factors That May Effect PTSD, long commute with Therapy/Recovery increased back pain with commute, history orthostasis and near-syncope PT-OP-C Subjective Start: 05/07/19 12:10 Freq: Status: Active Protocol: Document 08/20/19 14:33 MB (Rec: 08/20/19 15:30 MB [id number]) OP-PT Subjective Patient Comments Patient Comments Pt states that he back pain yesterday. He didn't sleep well. He took pain meds and didn't go to [facility]. PT-OP-G Mobility & Gait Start: 05/07/19 12:10 Freq: Status: Active Protocol: Document 05/07/19 12:18 MB (Rec: 05/07/19 15:52 MB [id number]) OP Gait Assessment Comments Gait Comments Forward, flexed posture with use of his bariatric RW with tray. Decreased step-length and foot clearance and pt winces with pain after 112' gait and reports 6.5/10 LBP and so 6MWT stopped. He was able to walk this distance in 80 sec. PT-OP-M Strength Start: 05/07/19 12:10 Freq: Status: Active Protocol: Document 05/07/19 12:18 MB (Rec: 05/07/19 15:52 MB [id number]) Hip Strength Hip Manual Muscle Testing Left Flexion (L2) 2- Poor- Right Flexion (L2) 2- Poor- Comments Pt is unable to clear thigh off bench Knee Strength Knee Manual Muscle Testing Left Extension (L3) 3 Fair Comments Pt is unable to clear his foot back in sitting to assess knee flexion. Right Extension (L3) 3 Fair Comments Pt is unable to clear his foot back in sitting to assess knee flexion. Ankle/Foot Strength Ankle and Foot Manual Muscle Testing Left Dorsiflexion (L4) 4 Good Plantarflexion (S1) 4 Good Comments Great toe extension left 4/5 Right Dorsiflexion (L4) 4 Good Plantarflexion (S1) 3 Fair Comments Great toe extension right 3+/5 PT-OP-Q Treatments Start: 05/07/19 12:10 Freq: Status: Active Protocol: Document 08/20/19 14:33 MB (Rec: 08/20/19 15:30 MB [id number]) Cardio Equipment Upper Body Ergometer (UBE) Duration (Minutes) 11 Other Forward and backwards Therapeutic Exercises Sitting Exercises Sit to stands without UE support Comments 30 sec 11 reps; 12 reps in 29 sec Diaphragmatic breathing Comments Performed after sit to stands Standing Exercises Basketball throws without support behind legs Comments 2 reps 20 passes PT-OP-T Assessment and Plan Start: 05/07/19 12:10 Freq: Status: Active Protocol: Document 08/20/19 14:33 MB (Rec: 08/20/19 15:30 MB [id number]) Physical Therapy Assessment Rehab Potential Rehabilitation Potential Fair Evaluation Complexity Number of Personal Factors/Comorbidities 1-2 Number of Body Systems Impaired 3 Clinical Presentation at Evaluation Unstable Impairments Impairments Activity Tolerance,Balance, Edema,Functional Activities, Functional Mobility,Gait, Integument,Pain,Posture,ROM, Sensation,Soft Tissue Mobility ,Strength Other Impairments Pt presents with decreased sensation to light touch in his posterior LEs and feet. Goals 5 Correction Goal (LTG) Pt will gait train 700 feet with LRAD in 6 minutes to improve community distance ambulation by 09/02/2019. 07/02/2019: Pt is able to gait train 492' with RW in 5 minutes LTG Duration 8 weeks 4 Impairment Inability to perform sit to stand on eval date without UE support Try Out Person Goal (LTG) Pt will perform 15 reps sit to stand without UE support in 30 sec to improve functional I by 09/02/2019. 08/20/2019: 11 reps in 30 sec LTG Duration 8 weeks 3 Correction Goal (LTG) Pt will perform progressive HEP with I including flexibility, strengthening, gait and balance exercises to increase functional mobility by 09/02/2019. 08/20/2019: Pt is performing exercises sometimes. He understands all exercises LTG Duration 8 weeks 2 Try Out Person Goal (LTG) Pt will deny falls for 2 months to decrease injury risk by 09/02/2019. 08/20/2019: No falls since 2019 LTG Duration 8 weeks 1 Correction Goal (LTG) Pt will present with an improved Oswestry LBP scale score to reflect no more than 30% impairment by 08/31/2019. 07/02/2019: Pt presents with Oswestry LBP score reflecting 52% impairment LTG Duration 8 weeks Assessment Summary Assessment Pt is performing HEP as able. He has 1-2/10 back pain today. He has not had a fall since last reassessment. He has progressed with sit to stands in 30 sec since last reassessment. Con't reassessment next treatment date. Pt is on chemo and this has affected his overall fatigue. Physical Therapy Plan Frequency and Duration Frequency of Treatment 2x/Week Duration of Treatment 8 weeks Plan of Care Start Date 07/02/19 Plan of Care End Date 09/02/19 Therapeutic Interventions Therapeutic Interventions Balance Training,Canalithic Repositioning,Gait Training, Home Exercise Program,Manual Therapy,Neuromuscular Re- education,Patient/Caregiver Education,Self-Care/Home Management,Sensory Integration ,Soft Tissue Mobilization, Taping,Therapeutic Activities, Therapeutic Exercises Next Visit Focus/Plan Next Note Type Progress Note Next Visit Plan Con't to progress HEP, gait and balance exercises as tolerates
--- NOTE | 2019-08-27 12:55 | PT.OTN ---
Current Diagnoses Low back pain (08/27/19) Physical Therapy Treatment Note PT-OP-A Visit Information Start: 05/07/19 12:10 Freq: Status: Active Protocol: Document 08/27/19 12:15 MB (Rec: 08/27/19 12:29 MB [id number]) Out-Patient Physical Therapy Visit Information Visit Information Visit Type Progress Note Visit Note Medicare Visit Start Time 12:15 Visit Stop Time 12:55 Total Visit Minutes 40 Visit Number 10/unlimited Precautions Precautions Falls, history of orthostasis and a-fib, pt takes Warfarin PT-OP-B Current Condition Start: 05/07/19 12:10 Freq: Status: Active Protocol: Document 05/07/19 12:18 MB (Rec: 05/07/19 12:48 MB [id number]) Current Condition History of Current Condition Onset Date 03/14 History of Current Condition Onset of back pain when catching right foot on edge of tub causing left foot to skid on tile. He grabbed rail on left side and then reached around with right hand also grabbed the rail. He pulled himself upright. He had to drag his right leg across the bathtub. Pt had increased LBP with ride from [place] this date. His pain is 6.5/10 with attempted 6MWT this date and so stopped. Pt reports pain and burning in the back of his legs. Further pain ratings: at their worse, LBP is 8/10, proximal LE pain is 7/10 and left heel pain is 5/10, right ankle 4/10. Pain is occ worse when up. PMH: orthostasis, PTSD, a-fib, Warfarin, falls, right ankle fracture, CA, sleep apnea and has CPAP, morbid obesity, lymphedema, dizziness and BPPV cleared by PT, memory loss. Prior Treatments and Tests OPPT Treatment Goals Patient/Caregiver Goals Decreased pain and increased mobility. He has not been going to [facility] regularly d/t pain and decreased mobility and he wants to get back to [facility]. Personal Factors Other Personal Factors That May Effect PTSD, long commute with Therapy/Recovery increased back pain with commute, history orthostasis and near-syncope PT-OP-C Subjective Start: 05/07/19 12:10 Freq: Status: Active Protocol: Document 08/27/19 12:15 MB (Rec: 08/27/19 12:29 MB [id number]) OP-PT Subjective Patient Comments Patient Comments Pt states that he finished chemo last week. He had to take public transport to PT today and it hurt his back. He comes in with 4.5/10 pain. 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 He cannot yet stand 25' at a time. PT-OP-G Mobility & Gait Start: 05/07/19 12:10 Freq: Status: Active Protocol: Document 05/07/19 12:18 MB (Rec: 05/07/19 15:52 MB [id number]) OP Gait Assessment Comments Gait Comments Forward, flexed posture with use of his bariatric RW with tray. Decreased step-length and foot clearance and pt winces with pain after 112' gait and reports 6.5/10 LBP and so 6MWT stopped. He was able to walk this distance in 80 sec. PT-OP-M Strength Start: 05/07/19 12:10 Freq: Status: Active Protocol: Document 05/07/19 12:18 MB (Rec: 05/07/19 15:52 MB [id number]) Hip Strength Hip Manual Muscle Testing Left Flexion (L2) 2- Poor- Right Flexion (L2) 2- Poor- Comments Pt is unable to clear thigh off bench Knee Strength Knee Manual Muscle Testing Left Extension (L3) 3 Fair Comments Pt is unable to clear his foot back in sitting to assess knee flexion. Right Extension (L3) 3 Fair Comments Pt is unable to clear his foot back in sitting to assess knee flexion. Ankle/Foot Strength Ankle and Foot Manual Muscle Testing Left Dorsiflexion (L4) 4 Good Plantarflexion (S1) 4 Good Comments Great toe extension left 4/5 Right Dorsiflexion (L4) 4 Good Plantarflexion (S1) 3 Fair Comments Great toe extension right 3+/5 PT-OP-Q Treatments Start: 05/07/19 12:10 Freq: Status: Active Protocol: Document 08/27/19 12:15 MB (Rec: 08/27/19 12:32 MB [id number]) Therapeutic Exercises Sitting Exercises Pursed-lip breathing Comments Performed today with resting Diaphragmatic breathing Comments Performed today with rest breaks with gait Ball kicking Comments Catch ball with one foot, lift to touch top, tap other foot, then pass Other Exercises Verbally reviewed HEP Comments Pt performing as able. Encourage pt in sit to stands after toileting, gait Gait Training Gait Activity 6MWT Comments Pt uses RW and takes two sitting rest breaks. 421' and pt does con't with the 6 minutes with encouragement after rests. His back pain moves from 4.5 to 8/10 with increased gait distance. PT-OP-T Assessment and Plan Start: 05/07/19 12:10 Freq: Status: Active Protocol: Document 08/27/19 12:15 MB (Rec: 08/27/19 12:29 MB [id number]) Physical Therapy Assessment Rehab Potential Rehabilitation Potential Fair Evaluation Complexity Number of Personal Factors/Comorbidities 1-2 Number of Body Systems Impaired 3 Clinical Presentation at Evaluation Unstable Impairments Impairments Activity Tolerance,Balance, Edema,Functional Activities, Functional Mobility,Gait, Integument,Pain,Posture,ROM, Sensation,Soft Tissue Mobility ,Strength Other Impairments Pt presents with decreased sensation to light touch in his posterior LEs and feet. Goals 5 Jail Goal (LTG) Pt will gait train 600 feet with LRAD in 6 minutes to improve community distance ambulation by 10/29/2019. 08/27/2019: Pt is able to gait train 421' with RW. LTG Duration 8 weeks 4 Impairment Inability to perform sit to stand on eval date without UE support Special Services Agent Goal (LTG) Pt will perform 15 reps sit to stand without UE support in 30 sec to improve functional I by 10/29/2019. 08/20/2019: 11 reps in 30 sec LTG Duration 8 weeks 3 Special Services Agent Goal (LTG) Pt will perform progressive HEP with I including flexibility, strengthening, gait and balance exercises to increase functional mobility by 10/29/2019. 08/20/2019: Pt is performing exercises sometimes. He understands all exercises LTG Duration 8 weeks 2 Jail Goal (LTG) Pt will deny falls for 2 months to decrease injury risk by 10/29/2019. 08/20/2019: No falls since 2019 LTG Duration 8 weeks 1 Special Services Agent Goal (LTG) Pt will present with an improved Oswestry LBP scale score to reflect no more than 30% impairment by 10/29/2019. 08/27/2019: Pt presents with Oswestry LBP score reflecting 52% impairment LTG Duration 8 weeks Assessment Summary Assessment Pt is performing HEP as able. He has not had a fall since last reassessment. He has progressed with sit to stands in 30 sec since last reassessment. Pt has just finshed chemo and this has affected his overall fatigue. He also had to take public transport today to get from [place] to [place] and this increases fatigue and pain today. Pt will benefit from ongoing PT for balance, strengthening and gait training to improve I, decrease falls and promote community mobility. Physical Therapy Plan Frequency and Duration Frequency of Treatment 2x/Week Duration of Treatment 8 weeks Plan of Care Start Date 08/27/19 Plan of Care End Date 10/29/19 Therapeutic Interventions Therapeutic Interventions Balance Training,Canalithic Repositioning,Gait Training, Home Exercise Program,Manual Therapy,Neuromuscular Re- education,Patient/Caregiver Education,Self-Care/Home Management,Sensory Integration ,Soft Tissue Mobilization, Taping,Therapeutic Activities, Therapeutic Exercises Next Visit Focus/Plan Next Note Type Treatment Note Next Visit Plan Con't to progress HEP, gait and balance exercises as tolerates
--- NOTE | 2019-08-27 12:56 | PT.OPPOC ---
Physical, Occupational & Speech Therapy At [facility] Current Diagnoses Low back pain (08/27/19) Visit Care Team Role Provider Type Yolis Salazar DO Attending Provider Non-Staff Primary Care Provider Specialty: Family Practice Address: [address] [place] [address], [phone] Email: Plan Of Care PT-OP-T Assessment and Plan Start: 05/07/19 12:10 Freq: Status: Active Protocol: Document 08/27/19 12:15 MB (Rec: 08/27/19 12:29 MB [id number]) Physical Therapy Assessment Rehab Potential Rehabilitation Potential Fair Evaluation Complexity Number of Personal Factors/Comorbidities 1-2 Number of Body Systems Impaired 3 Clinical Presentation at Evaluation Unstable Impairments Impairments Activity Tolerance,Balance, Edema,Functional Activities, Functional Mobility,Gait, Integument,Pain,Posture,ROM, Sensation,Soft Tissue Mobility ,Strength Other Impairments Pt presents with decreased sensation to light touch in his posterior LEs and feet. Goals 5 Correction Goal (LTG) Pt will gait train 600 feet with LRAD in 6 minutes to improve community distance ambulation by 10/29/2019. 08/27/2019: Pt is able to gait train 421' with RW. LTG Duration 8 weeks 4 Impairment Inability to perform sit to stand on eval date without UE support M[employer] Rep[employer] Shop Supervisor Goal (LTG) Pt will perform 15 reps sit to stand without UE support in 30 sec to improve functional I by 10/29/2019. 08/20/2019: 11 reps in 30 sec LTG Duration 8 weeks 3 [employer] Supervisor Goal (LTG) Pt will perform progressive HEP with I including flexibility, strengthening, gait and balance exercises to increase functional mobility by 10/29/2019. 08/20/2019: Pt is performing exercises sometimes. He understands all exercises LTG Duration 8 weeks 2 Correction Goal (LTG) Pt will deny falls for 2 months to decrease injury risk by 10/29/2019. 08/20/2019: No falls since 2019 LTG Duration 8 weeks 1 [employer] Supervisor Goal (LTG) Pt will present with an improved Oswestry LBP scale score to reflect no more than 30% impairment by 10/29/2019. 08/27/2019: Pt presents with Oswestry LBP score reflecting 52% impairment LTG Duration 8 weeks Assessment Summary Assessment Pt is performing HEP as able. He has not had a fall since last reassessment. He has progressed with sit to stands in 30 sec since last reassessment. Pt has just finshed chemo and this has affected his overall fatigue. He also had to take public transport today to get from [place] to [place] and this increases fatigue and pain today. Pt will benefit from ongoing PT for balance, strengthening and gait training to improve I, decrease falls and promote community mobility. Physical Therapy Plan Frequency and Duration Frequency of Treatment 2x/Week Duration of Treatment 8 weeks Plan of Care Start Date 08/27/19 Plan of Care End Date 10/29/19 Therapeutic Interventions Therapeutic Interventions Balance Training,Canalithic Repositioning,Gait Training, Home Exercise Program,Manual Therapy,Neuromuscular Re- education,Patient/Caregiver Education,Self-Care/Home Management,Sensory Integration ,Soft Tissue Mobilization, Taping,Therapeutic Activities, Therapeutic Exercises Next Visit Focus/Plan Next Note Type Treatment Note Next Visit Plan Con't to progress HEP, gait and balance exercises as tolerates Plan of Care Dates Plan of Care Start Date 08/27/19 Plan of Care End Date 10/29/19 Electronically Signed by: Faina Zamarripa, PT 08/27/19 1759 Please Sign and Return: I have reviewed this Plan of Care and certify that the skilled therapy services above are required to meet the patient?s needs. Physician Signature Date Printed Name and Credentials Clinical Instructor Signature Printed Name and Credentials
--- NOTE | 2019-08-30 12:54 | PT.OTN ---
Current Diagnoses Low back pain (08/30/19) Physical Therapy Treatment Note PT-OP-A Visit Information Start: 05/07/19 12:10 Freq: Status: Active Protocol: Document 08/30/19 12:15 MB (Rec: 08/30/19 12:54 MB [id number]) Out-Patient Physical Therapy Visit Information Visit Information Visit Type Progress Note Visit Note Medicare Visit Start Time 12:15 Visit Stop Time 12:53 Total Visit Minutes 38 Visit Number 07/05 Precautions Precautions Falls, history of orthostasis and a-fib, pt takes Warfarin PT-OP-B Current Condition Start: 05/07/19 12:10 Freq: Status: Active Protocol: Document 05/07/19 12:18 MB (Rec: 05/07/19 12:48 MB [id number]) Current Condition History of Current Condition Onset Date 03/14 History of Current Condition Onset of back pain when catching right foot on edge of tub causing left foot to skid on tile. He grabbed rail on left side and then reached around with right hand also grabbed the rail. He pulled himself upright. He had to drag his right leg across the bathtub. Pt had increased LBP with ride from [employer] this date. His pain is 6.5/10 with attempted 6MWT this date and so stopped. Pt reports pain and burning in the back of his legs. Further pain ratings: at their worse, LBP is 8/10, proximal LE pain is 7/10 and left heel pain is 5/10, right ankle 4/10. Pain is occ worse when up. PMH: orthostasis, PTSD, a-fib, Warfarin, falls, right ankle fracture, CA, sleep apnea and has CPAP, morbid obesity, lymphedema, dizziness and BPPV cleared by PT, memory loss. Prior Treatments and Tests OPPT Treatment Goals Patient/Caregiver Goals Decreased pain and increased mobility. He has not been going to hindu regularly d/t pain and decreased mobility and he wants to get back to hindu. Personal Factors Other Personal Factors That May Effect PTSD, long commute with Therapy/Recovery increased back pain with commute, history orthostasis and near-syncope PT-OP-C Subjective Start: 05/07/19 12:10 Freq: Status: Active Protocol: Document 08/30/19 12:15 MB (Rec: 08/30/19 12:54 MB [id number]) OP-PT Subjective Patient Comments Patient Comments Pt states that he fell on Wed night when picking up a package. It was imbalanced and he fell over and hit his right hand, left hip, left elbow and back. He reports 5/ 10 back pain today. PT-OP-G Mobility & Gait Start: 05/07/19 12:10 Freq: Status: Active Protocol: Document 05/07/19 12:18 MB (Rec: 05/07/19 15:52 MB [id number]) OP Gait Assessment Comments Gait Comments Forward, flexed posture with use of his bariatric RW with tray. Decreased step-length and foot clearance and pt winces with pain after 112' gait and reports 6.5/10 LBP and so 6MWT stopped. He was able to walk this distance in 80 sec. PT-OP-M Strength Start: 05/07/19 12:10 Freq: Status: Active Protocol: Document 05/07/19 12:18 MB (Rec: 05/07/19 15:52 MB [id number]) Hip Strength Hip Manual Muscle Testing Left Flexion (L2) 2- Poor- Right Flexion (L2) 2- Poor- Comments Pt is unable to clear thigh off bench Knee Strength Knee Manual Muscle Testing Left Extension (L3) 3 Fair Comments Pt is unable to clear his foot back in sitting to assess knee flexion. Right Extension (L3) 3 Fair Comments Pt is unable to clear his foot back in sitting to assess knee flexion. Ankle/Foot Strength Ankle and Foot Manual Muscle Testing Left Dorsiflexion (L4) 4 Good Plantarflexion (S1) 4 Good Comments Great toe extension left 4/5 Right Dorsiflexion (L4) 4 Good Plantarflexion (S1) 3 Fair Comments Great toe extension right 3+/5 PT-OP-Q Treatments Start: 05/07/19 12:10 Freq: Status: Active Protocol: Document 08/30/19 12:15 MB (Rec: 08/30/19 12:54 MB [id number]) Cardio Equipment Upper Body Ergometer (UBE) Duration (Minutes) 10 Other 5 breaks d/t 7/10 back pain, forward and backwards Therapeutic Exercises Sitting Exercises Pursed-lip breathing Comments Performed x5 reps with cues after moving to sitting Cervical rotation and nods sitting upright Comments 5 reps B EFT tapping Comments Performed with visual cues after sitting today d/t pain Manual Therapy Treatment Other Other Manual Treatments MWM cervical paraspinals and right upper traps and pt performs active cervical rotation as pt performs cervical rotation right and left PT-OP-T Assessment and Plan Start: 05/07/19 12:10 Freq: Status: Active Protocol: Document 08/30/19 12:15 MB (Rec: 08/30/19 12:54 MB [id number]) Physical Therapy Assessment Rehab Potential Rehabilitation Potential Fair Evaluation Complexity Number of Personal Factors/Comorbidities 1-2 Number of Body Systems Impaired 3 Clinical Presentation at Evaluation Unstable Impairments Impairments Activity Tolerance,Balance, Edema,Functional Activities, Functional Mobility,Gait, Integument,Pain,Posture,ROM, Sensation,Soft Tissue Mobility ,Strength Other Impairments Pt presents with decreased sensation to light touch in his posterior LEs and feet. Goals 5 Cigarette Lighter Repairer Goal (LTG) Pt will gait train 600 feet with LRAD in 6 minutes to improve community distance ambulation by 10/29/2019. 08/27/2019: Pt is able to gait train 421' with RW. LTG Duration 8 weeks 4 Impairment Inability to perform sit to stand on eval date without UE support Cigarette Lighter Repairer Goal (LTG) Pt will perform 15 reps sit to stand without UE support in 30 sec to improve functional I by 10/29/2019. 08/20/2019: 11 reps in 30 sec LTG Duration 8 weeks 3 Cigarette Lighter Repairer Goal (LTG) Pt will perform progressive HEP with I including flexibility, strengthening, gait and balance exercises to increase functional mobility by 10/29/2019. 08/20/2019: Pt is performing exercises sometimes. He understands all exercises LTG Duration 8 weeks 2 [facility] Goal (LTG) Pt will deny falls for 2 months to decrease injury risk by 10/29/2019. 08/20/2019: No falls since 2019 LTG Duration 8 weeks 1 [facility] Goal (LTG) Pt will present with an improved Oswestry LBP scale score to reflect no more than 30% impairment by 10/29/2019. 08/27/2019: Pt presents with Oswestry LBP score reflecting 52% impairment LTG Duration 8 weeks Assessment Summary Assessment Pt had a fall two days and the paramedics had to get him up. He has not followed up with Dr. Salazar but denies hitting his head and his pain today is less than last treatment. He was able to get a ride in his own car today to therapy. PT ed pt to call Dr. Vargas's office or EMS if his pain gets worse. Re-ed pt on diaphragmatic breathing and tapping today. Physical Therapy Plan Frequency and Duration Frequency of Treatment 2x/Week Duration of Treatment 8 weeks Plan of Care Start Date 08/27/19 Plan of Care End Date 10/29/19 Therapeutic Interventions Therapeutic Interventions Balance Training,Canalithic Repositioning,Gait Training, Home Exercise Program,Manual Therapy,Neuromuscular Re- education,Patient/Caregiver Education,Self-Care/Home Management,Sensory Integration ,Soft Tissue Mobilization, Taping,Therapeutic Activities, Therapeutic Exercises Next Visit Focus/Plan Next Note Type Treatment Note Next Visit Plan Con't to progress HEP, gait and balance exercises as tolerates
--- NOTE | 2019-09-03 13:23 | PT.OTN ---
Current Diagnoses Low back pain (09/03/19) Physical Therapy Treatment Note PT-OP-A Visit Information Start: 05/07/19 12:10 Freq: Status: Active Protocol: Document 09/03/19 12:19 MB (Rec: 09/03/19 13:22 MB [id number]) Out-Patient Physical Therapy Visit Information Visit Information Visit Type Progress Note Visit Note Medicare Visit Start Time 12:19 Visit Stop Time 12:59 Total Visit Minutes 40 Visit Number 2/10 Precautions Precautions Falls, history of orthostasis and a-fib, pt takes Warfarin PT-OP-B Current Condition Start: 05/07/19 12:10 Freq: Status: Active Protocol: Document 05/07/19 12:18 MB (Rec: 05/07/19 12:48 MB [id number]) Current Condition History of Current Condition Onset Date 03/14 History of Current Condition Onset of back pain when catching right foot on edge of tub causing left foot to skid on tile. He grabbed rail on left side and then reached around with right hand also grabbed the rail. He pulled himself upright. He had to drag his right leg across the bathtub. Pt had increased LBP with ride from [employer] this date. His pain is 6.5/10 with attempted 6MWT this date and so stopped. Pt reports pain and burning in the back of his legs. Further pain ratings: at their worse, LBP is 8/10, proximal LE pain is 7/10 and left heel pain is 5/10, right ankle 4/10. Pain is occ worse when up. PMH: orthostasis, PTSD, a-fib, Warfarin, falls, right ankle fracture, CA, sleep apnea and has CPAP, morbid obesity, lymphedema, dizziness and BPPV cleared by PT, memory loss. Prior Treatments and Tests OPPT Treatment Goals Patient/Caregiver Goals Decreased pain and increased mobility. He has not been going to taoism regularly d/t pain and decreased mobility and he wants to get back to taoism. Personal Factors Other Personal Factors That May Effect PTSD, long commute with Therapy/Recovery increased back pain with commute, history orthostasis and near-syncope PT-OP-C Subjective Start: 05/07/19 12:10 Freq: Status: Active Protocol: Document 09/03/19 12:19 MB (Rec: 09/03/19 13:22 MB [id number]) OP-PT Subjective Patient Comments Patient Comments Pt states that he tweaked his back this weekend when rolling over in the bed. He had trouble moving his legs under the sheets when rolling. His back pain is currently 3.5/10. PT-OP-G Mobility & Gait Start: 05/07/19 12:10 Freq: Status: Active Protocol: Document 05/07/19 12:18 MB (Rec: 05/07/19 15:52 MB [id number]) OP Gait Assessment Comments Gait Comments Forward, flexed posture with use of his bariatric RW with tray. Decreased step-length and foot clearance and pt winces with pain after 112' gait and reports 6.5/10 LBP and so 6MWT stopped. He was able to walk this distance in 80 sec. PT-OP-M Strength Start: 05/07/19 12:10 Freq: Status: Active Protocol: Document 05/07/19 12:18 MB (Rec: 05/07/19 15:52 MB [id number]) Hip Strength Hip Manual Muscle Testing Left Flexion (L2) 2- Poor- Right Flexion (L2) 2- Poor- Comments Pt is unable to clear thigh off bench Knee Strength Knee Manual Muscle Testing Left Extension (L3) 3 Fair Comments Pt is unable to clear his foot back in sitting to assess knee flexion. Right Extension (L3) 3 Fair Comments Pt is unable to clear his foot back in sitting to assess knee flexion. Ankle/Foot Strength Ankle and Foot Manual Muscle Testing Left Dorsiflexion (L4) 4 Good Plantarflexion (S1) 4 Good Comments Great toe extension left 4/5 Right Dorsiflexion (L4) 4 Good Plantarflexion (S1) 3 Fair Comments Great toe extension right 3+/5 PT-OP-Q Treatments Start: 05/07/19 12:10 Freq: Status: Active Protocol: Document 09/03/19 12:19 MB (Rec: 09/03/19 13:22 MB [id number]) Cardio Equipment Upper Body Ergometer (UBE) Duration (Minutes) 10 Other 1 break 4.5-5/10 back pain Therapeutic Exercises Sitting Exercises Basketball passes in sitting after light-headed Comments 30 ground passes, 10 overhead, 6/10 pain when reaching over to get ball B shoulder elevation for thoracic extension Comments Performed 5 reps after exercises to help decrease pain back Diaphragmatic breathing Comments Performed after back pain Standing Exercises Fencing with pool noodles Standing Exercise Name Pt reports 6/10 back pain Comments 2 sets with pt stepping and walking forward and backwards, pt prefers forwa PT-OP-T Assessment and Plan Start: 05/07/19 12:10 Freq: Status: Active Protocol: Document 09/03/19 12:19 MB (Rec: 09/03/19 13:22 MB [id number]) Physical Therapy Assessment Rehab Potential Rehabilitation Potential Fair Evaluation Complexity Number of Personal Factors/Comorbidities 1-2 Number of Body Systems Impaired 3 Clinical Presentation at Evaluation Unstable Impairments Impairments Activity Tolerance,Balance, Edema,Functional Activities, Functional Mobility,Gait, Integument,Pain,Posture,ROM, Sensation,Soft Tissue Mobility ,Strength Other Impairments Pt presents with decreased sensation to light touch in his posterior LEs and feet. Goals 5 [facility] Goal (LTG) Pt will gait train 600 feet with LRAD in 6 minutes to improve community distance ambulation by 10/29/2019. 08/27/2019: Pt is able to gait train 421' with RW. LTG Duration 8 weeks 4 Impairment Inability to perform sit to stand on eval date without UE support [facility] Goal (LTG) Pt will perform 15 reps sit to stand without UE support in 30 sec to improve functional I by 10/29/2019. 08/20/2019: 11 reps in 30 sec LTG Duration 8 weeks 3 [facility] Goal (LTG) Pt will perform progressive HEP with I including flexibility, strengthening, gait and balance exercises to increase functional mobility by 10/29/2019. 08/20/2019: Pt is performing exercises sometimes. He understands all exercises LTG Duration 8 weeks 2 [facility] Goal (LTG) Pt will deny falls for 2 months to decrease injury risk by 10/29/2019. 08/20/2019: No falls since 2019 LTG Duration 8 weeks 1 [facility] Goal (LTG) Pt will present with an improved Oswestry LBP scale score to reflect no more than 30% impairment by 10/29/2019. 08/27/2019: Pt presents with Oswestry LBP score reflecting 52% impairment LTG Duration 8 weeks Assessment Summary Assessment Pt requires frequent rest breaks d/t back pain. This is a barrier to PT today. Con't progression as pt tolerates, progress standing balance and gait exercises. Physical Therapy Plan Frequency and Duration Frequency of Treatment 2x/Week Duration of Treatment 8 weeks Plan of Care Start Date 08/27/19 Plan of Care End Date 10/29/19 Therapeutic Interventions Therapeutic Interventions Balance Training,Canalithic Repositioning,Gait Training, Home Exercise Program,Manual Therapy,Neuromuscular Re- education,Patient/Caregiver Education,Self-Care/Home Management,Sensory Integration ,Soft Tissue Mobilization, Taping,Therapeutic Activities, Therapeutic Exercises Next Visit Focus/Plan Next Note Type Treatment Note Next Visit Plan Con't to progress HEP, gait and balance exercises as tolerates
--- NOTE | 2019-09-06 12:55 | PT.OTN ---
Current Diagnoses Low back pain (09/06/19) Physical Therapy Treatment Note PT-OP-A Visit Information Start: 05/07/19 12:10 Freq: Status: Active Protocol: Document 09/06/19 12:17 MB (Rec: 09/06/19 12:55 MB [id number]) Out-Patient Physical Therapy Visit Information Visit Information Visit Type Treatment Note Visit Note Medicare Treatment shortened today d/t pt with light-headedness after gait activities Visit Start Time 12:17 Visit Stop Time 12:53 Total Visit Minutes 36 Visit Number 07/05 Precautions Precautions Falls, history of orthostasis and a-fib, pt takes Warfarin PT-OP-B Current Condition Start: 05/07/19 12:10 Freq: Status: Active Protocol: Document 05/07/19 12:18 MB (Rec: 05/07/19 12:48 MB [id number]) Current Condition History of Current Condition Onset Date 03/14 History of Current Condition Onset of back pain when catching right foot on edge of tub causing left foot to skid on tile. He grabbed rail on left side and then reached around with right hand also grabbed the rail. He pulled himself upright. He had to drag his right leg across the bathtub. Pt had increased LBP with ride from [place] this date. His pain is 6.5/10 with attempted 6MWT this date and so stopped. Pt reports pain and burning in the back of his legs. Further pain ratings: at their worse, LBP is 8/10, proximal LE pain is 7/10 and left heel pain is 5/10, right ankle 4/10. Pain is occ worse when up. PMH: orthostasis, PTSD, a-fib, Warfarin, falls, right ankle fracture, CA, sleep apnea and has CPAP, morbid obesity, lymphedema, dizziness and BPPV cleared by PT, memory loss. Prior Treatments and Tests OPPT Treatment Goals Patient/Caregiver Goals Decreased pain and increased mobility. He has not been going to [employer] regularly d/t pain and decreased mobility and he wants to get back to [employer]. Personal Factors Other Personal Factors That May Effect PTSD, long commute with Therapy/Recovery increased back pain with commute, history orthostasis and near-syncope PT-OP-C Subjective Start: 05/07/19 12:10 Freq: Status: Active Protocol: Document 09/06/19 12:17 MB (Rec: 09/06/19 12:55 MB [id number]) OP-PT Subjective Patient Comments Patient Comments Pt reports 3.5-4/10 low back pain upon arrival. He describes it as L5-S1 region and worse with standing too long. PT-OP-G Mobility & Gait Start: 05/07/19 12:10 Freq: Status: Active Protocol: Document 05/07/19 12:18 MB (Rec: 05/07/19 15:52 MB [id number]) OP Gait Assessment Comments Gait Comments Forward, flexed posture with use of his bariatric RW with tray. Decreased step-length and foot clearance and pt winces with pain after 112' gait and reports 6.5/10 LBP and so 6MWT stopped. He was able to walk this distance in 80 sec. PT-OP-M Strength Start: 05/07/19 12:10 Freq: Status: Active Protocol: Document 05/07/19 12:18 MB (Rec: 05/07/19 15:52 MB [id number]) Hip Strength Hip Manual Muscle Testing Left Flexion (L2) 2- Poor- Right Flexion (L2) 2- Poor- Comments Pt is unable to clear thigh off bench Knee Strength Knee Manual Muscle Testing Left Extension (L3) 3 Fair Comments Pt is unable to clear his foot back in sitting to assess knee flexion. Right Extension (L3) 3 Fair Comments Pt is unable to clear his foot back in sitting to assess knee flexion. Ankle/Foot Strength Ankle and Foot Manual Muscle Testing Left Dorsiflexion (L4) 4 Good Plantarflexion (S1) 4 Good Comments Great toe extension left 4/5 Right Dorsiflexion (L4) 4 Good Plantarflexion (S1) 3 Fair Comments Great toe extension right 3+/5 PT-OP-Q Treatments Start: 05/07/19 12:10 Freq: Status: Active Protocol: Document 09/06/19 12:17 MB (Rec: 09/06/19 12:55 MB [id number]) Therapeutic Exercises Sitting Exercises Sit to stands without UE support Comments I without UEs with sit to stands before gait Diaphragmatic breathing Comments 5 reps between gait sets Ball kicking Comments 2 sets of 5 reps and pt reports light-headedness Gait Training Gait Activity Stepping on unstable surfaces Device Used RW Comments CGA pt stepping on different foam wedges with alternating feet, 2 reps, right and left Small hurdles Description Fearfulness with stepping over left d/t right foot WB Device Used No Comments CGA first two reps with hurdles weaving to the right and SBA with hurdles weaving to the left. PT saying right or left for step over PT-OP-T Assessment and Plan Start: 05/07/19 12:10 Freq: Status: Active Protocol: Document 09/06/19 12:17 MB (Rec: 09/06/19 12:55 MB [id number]) Physical Therapy Assessment Rehab Potential Rehabilitation Potential Fair Evaluation Complexity Number of Personal Factors/Comorbidities 1-2 Number of Body Systems Impaired 3 Clinical Presentation at Evaluation Unstable Impairments Impairments Activity Tolerance,Balance, Edema,Functional Activities, Functional Mobility,Gait, Integument,Pain,Posture,ROM, Sensation,Soft Tissue Mobility ,Strength Other Impairments Pt presents with decreased sensation to light touch in his posterior LEs and feet. Goals 5 [facility] Goal (LTG) Pt will gait train 600 feet with LRAD in 6 minutes to improve community distance ambulation by 10/29/2019. 08/27/2019: Pt is able to gait train 421' with RW. LTG Duration 8 weeks 4 Impairment Inability to perform sit to stand on eval date without UE support [place] Goal (LTG) Pt will perform 15 reps sit to stand without UE support in 30 sec to improve functional I by 10/29/2019. 08/20/2019: 11 reps in 30 sec LTG Duration 8 weeks 3 [place] Goal (LTG) Pt will perform progressive HEP with I including flexibility, strengthening, gait and balance exercises to increase functional mobility by 10/29/2019. 08/20/2019: Pt is performing exercises sometimes. He understands all exercises LTG Duration 8 weeks 2 [facility] Goal (LTG) Pt will deny falls for 2 months to decrease injury risk by 10/29/2019. 08/20/2019: No falls since 2019 LTG Duration 8 weeks 1 [place] Goal (LTG) Pt will present with an improved Oswestry LBP scale score to reflect no more than 30% impairment by 10/29/2019. 08/27/2019: Pt presents with Oswestry LBP score reflecting 52% impairment LTG Duration 8 weeks Assessment Summary Assessment Progressed gait activities with obstacles today and pt performs with CGA and cues. Pt has light-headedness after gait activities. Physical Therapy Plan Frequency and Duration Frequency of Treatment 2x/Week Duration of Treatment 8 weeks Plan of Care Start Date 08/27/19 Plan of Care End Date 10/29/19 Therapeutic Interventions Therapeutic Interventions Balance Training,Canalithic Repositioning,Gait Training, Home Exercise Program,Manual Therapy,Neuromuscular Re- education,Patient/Caregiver Education,Self-Care/Home Management,Sensory Integration ,Soft Tissue Mobilization, Taping,Therapeutic Activities, Therapeutic Exercises Next Visit Focus/Plan Next Note Type Treatment Note Next Visit Plan Con't to progress HEP, gait and balance exercises as tolerates
--- NOTE | 2019-09-10 13:46 | PT.OTN ---
Current Diagnoses Low back pain (09/10/19) Physical Therapy Treatment Note PT-OP-A Visit Information Start: 05/07/19 12:10 Freq: Status: Active Protocol: Document 09/10/19 13:05 MB (Rec: 09/10/19 13:45 MB [id number]) Out-Patient Physical Therapy Visit Information Visit Information Visit Type Treatment Note Visit Note Medicare Visit Start Time 13:05 Visit Stop Time 13:45 Total Visit Minutes 40 Visit Number 2/ Precautions Precautions Falls, history of orthostasis and a-fib, pt takes Warfarin PT-OP-B Current Condition Start: 05/07/19 12:10 Freq: Status: Active Protocol: Document 05/07/19 12:18 MB (Rec: 05/07/19 12:48 MB [id number]) Current Condition History of Current Condition Onset Date 03/14 History of Current Condition Onset of back pain when catching right foot on edge of tub causing left foot to skid on tile. He grabbed rail on left side and then reached around with right hand also grabbed the rail. He pulled himself upright. He had to drag his right leg across the bathtub. Pt had increased LBP with ride from [place] this date. His pain is 6.5/10 with attempted 6MWT this date and so stopped. Pt reports pain and burning in the back of his legs. Further pain ratings: at their worse, LBP is 8/10, proximal LE pain is 7/10 and left heel pain is 5/10, right ankle 4/10. Pain is occ worse when up. PMH: orthostasis, PTSD, a-fib, Warfarin, falls, right ankle fracture, CA, sleep apnea and has CPAP, morbid obesity, lymphedema, dizziness and BPPV cleared by PT, memory loss. Prior Treatments and Tests OPPT Treatment Goals Patient/Caregiver Goals Decreased pain and increased mobility. He has not been going to [facility] regularly d/t pain and decreased mobility and he wants to get back to [facility]. Personal Factors Other Personal Factors That May Effect PTSD, long commute with Therapy/Recovery increased back pain with commute, history orthostasis and near-syncope PT-OP-C Subjective Start: 05/07/19 12:10 Freq: Status: Active Protocol: Document 09/10/19 13:05 MB (Rec: 09/10/19 13:45 MB [id number]) OP-PT Subjective Patient Comments Patient Comments Pt reports he is tired overall . He presents with 3/10 back pain and would like to keep it that way. PT-OP-G Mobility & Gait Start: 05/07/19 12:10 Freq: Status: Active Protocol: Document 05/07/19 12:18 MB (Rec: 05/07/19 15:52 MB [id number]) OP Gait Assessment Comments Gait Comments Forward, flexed posture with use of his bariatric RW with tray. Decreased step-length and foot clearance and pt winces with pain after 112' gait and reports 6.5/10 LBP and so 6MWT stopped. He was able to walk this distance in 80 sec. PT-OP-M Strength Start: 05/07/19 12:10 Freq: Status: Active Protocol: Document 05/07/19 12:18 MB (Rec: 05/07/19 15:52 MB [id number]) Hip Strength Hip Manual Muscle Testing Left Flexion (L2) 2- Poor- Right Flexion (L2) 2- Poor- Comments Pt is unable to clear thigh off bench Knee Strength Knee Manual Muscle Testing Left Extension (L3) 3 Fair Comments Pt is unable to clear his foot back in sitting to assess knee flexion. Right Extension (L3) 3 Fair Comments Pt is unable to clear his foot back in sitting to assess knee flexion. Ankle/Foot Strength Ankle and Foot Manual Muscle Testing Left Dorsiflexion (L4) 4 Good Plantarflexion (S1) 4 Good Comments Great toe extension left 4/5 Right Dorsiflexion (L4) 4 Good Plantarflexion (S1) 3 Fair Comments Great toe extension right 3+/5 PT-OP-Q Treatments Start: 05/07/19 12:10 Freq: Status: Active Protocol: Document 09/10/19 13:05 MB (Rec: 09/10/19 13:45 MB [id number]) Cardio Equipment Upper Body Ergometer (UBE) Duration (Minutes) 10 Other 2 breaks, 3/10 back pain Manual Therapy Treatment Joint Mobilizations STM B upper traps, thoracolumbar paraspinals, right QL Comments Pt sitting in high chair with arm rests, resting over high plinth and pillow support under hands and head. Increased tension on the right QL compared to left, decreased pain after treatment PT-OP-T Assessment and Plan Start: 05/07/19 12:10 Freq: Status: Active Protocol: Document 09/10/19 13:05 MB (Rec: 09/10/19 13:45 MB [id number]) Physical Therapy Assessment Rehab Potential Rehabilitation Potential Fair Evaluation Complexity Number of Personal Factors/Comorbidities 1-2 Number of Body Systems Impaired 3 Clinical Presentation at Evaluation Unstable Impairments Impairments Activity Tolerance,Balance, Edema,Functional Activities, Functional Mobility,Gait, Integument,Pain,Posture,ROM, Sensation,Soft Tissue Mobility ,Strength Other Impairments Pt presents with decreased sensation to light touch in his posterior LEs and feet. Goals 5 [facility] Goal (LTG) Pt will gait train 600 feet with LRAD in 6 minutes to improve community distance ambulation by 10/29/2019. 08/27/2019: Pt is able to gait train 421' with RW. LTG Duration 8 weeks 4 Impairment Inability to perform sit to stand on eval date without UE support [place] Goal (LTG) Pt will perform 15 reps sit to stand without UE support in 30 sec to improve functional I by 10/29/2019. 08/20/2019: 11 reps in 30 sec LTG Duration 8 weeks 3 [employer] Goal (LTG) Pt will perform progressive HEP with I including flexibility, strengthening, gait and balance exercises to increase functional mobility by 10/29/2019. 08/20/2019: Pt is performing exercises sometimes. He understands all exercises LTG Duration 8 weeks 2 [employer] [facility] Goal (LTG) Pt will deny falls for 2 months to decrease injury risk by 10/29/2019. 08/20/2019: No falls since 2019 LTG Duration 8 weeks 1 Jail Goal (LTG) Pt will present with an improved Oswestry LBP scale score to reflect no more than 30% impairment by 10/29/2019. 08/27/2019: Pt presents with Oswestry LBP score reflecting 52% impairment LTG Duration 8 weeks Assessment Summary Assessment First longer manual treatment today to help with back pain that limits exercise and pt tolerates well and feels better afterwards. Con't as needed and exercise progression. Physical Therapy Plan Frequency and Duration Frequency of Treatment 2x/Week Duration of Treatment 8 weeks Plan of Care Start Date 08/27/19 Plan of Care End Date 10/29/19 Therapeutic Interventions Therapeutic Interventions Balance Training,Canalithic Repositioning,Gait Training, Home Exercise Program,Manual Therapy,Neuromuscular Re- education,Patient/Caregiver Education,Self-Care/Home Management,Sensory Integration ,Soft Tissue Mobilization, Taping,Therapeutic Activities, Therapeutic Exercises Next Visit Focus/Plan Next Note Type Treatment Note Next Visit Plan Con't to progress HEP, gait and balance exercises as tolerates
--- NOTE | 2019-09-11 10:31 | PT-OP ANOTE ---
Pt calls, states [place], who gives him a ride to therapy is sick. Will cancel all appointments in August d/t COVID-19 and con't PT in September.
--- NOTE | 2019-10-05 13:05 | PT-OP ANOTE ---
PT calls pt and he is doing well. He is interested in e-visits if available. He will schedule more visits when clinic opens.
--- NOTE | 2019-10-19 15:16 | PT-OP ANOTE ---
PT calls pt. PT communicates that we do not know yet when clinic will reopen, that clinic hours will be limited to begin with, that therapists and patients will wear masks and that the gym situation will allow for 6 feet between patients. Pt communicates that he wants to con't with PT because he has been going downhill without it. There is strengthening he can do with PT with the gym equipment and therapist that he cannot do at home.
--- NOTE | 2019-11-19 14:08 | PT.OTRE ---
Current Diagnoses Low back pain (11/19/19) Visit Care Team Role Provider Type Yolis Salazar DO Attending Provider Non-Staff Primary Care Provider Specialty: Family Practice Address: [address] [place] [address], [place], [address] Email: Physical Therapy Re-Evaluation PT-OP-A Visit Information Start: 05/07/19 12:10 Freq: Status: Active Protocol: Document 11/19/19 10:30 SAK (Rec: 11/19/19 14:05 [facility] [id number]) Out-Patient Physical Therapy Visit Information Visit Information Visit Type Re-Evaluation Visit Note Medicare Visit Start Time 10:30 Visit Stop Time 11:56 Total Visit Minutes 86 Visit Number 09/02 Precautions Precautions Falls, history of orthostasis and a-fib, pt takes Warfarin PT-OP-B Current Condition Start: 05/07/19 12:10 Freq: Status: Active Protocol: Document 11/19/19 10:30 SAK (Rec: 11/19/19 11:57 SAK [id number]) Current Condition History of Current Condition Onset Date 2 years Current Complaints swelling bilateral LE's History of Current Condition Swelling since fracture right ankle, treated with ORIF surgery and rehab. Mobility has declined, gradual worsening with weight gain. Some discoloration in LE's, swelling some improved with elevation. Doesn't wear compression garment because reports has been unable to find any large enough; has size 15 foot. Worse on right than left. Has been doing PT for mobility, strengthening, pain management. Reports pain creeping back up since not seen in physical therapy. Treatment Goals Patient/Caregiver Goals Decrease lymphedema bilateral LE's to allow improved mobility, improve health. PT-OP-C Subjective Start: 05/07/19 12:10 Freq: Status: Active Protocol: Document 11/19/19 10:30 SAK (Rec: 11/19/19 14:05 SAK [id number]) OP-PT Subjective Patient Comments Patient Comments States he has been dealing with increasing edema bilateral LE's right greater than left ever since fractured ankle approximately 2 years ago. Has had 1 infected wound in his right LE over the past year. PT-OP-G Mobility & Gait Start: 05/07/19 12:10 Freq: Status: Active Protocol: Document 05/07/19 12:18 MB (Rec: 05/07/19 15:52 MB [id number]) OP Gait Assessment Comments Gait Comments Forward, flexed posture with use of his bariatric RW with tray. Decreased step-length and foot clearance and pt winces with pain after 112' gait and reports 6.5/10 LBP and so 6MWT stopped. He was able to walk this distance in 80 sec. PT-OP-M Strength Start: 05/07/19 12:10 Freq: Status: Active Protocol: Document 05/07/19 12:18 MB (Rec: 05/07/19 15:52 MB [id number]) Hip Strength Hip Manual Muscle Testing Left Flexion (L2) 2- Poor- Right Flexion (L2) 2- Poor- Comments Pt is unable to clear thigh off bench Knee Strength Knee Manual Muscle Testing Left Extension (L3) 3 Fair Comments Pt is unable to clear his foot back in sitting to assess knee flexion. Right Extension (L3) 3 Fair Comments Pt is unable to clear his foot back in sitting to assess knee flexion. Ankle/Foot Strength Ankle and Foot Manual Muscle Testing Left Dorsiflexion (L4) 4 Good Plantarflexion (S1) 4 Good Comments Great toe extension left 4/5 Right Dorsiflexion (L4) 4 Good Plantarflexion (S1) 3 Fair Comments Great toe extension right 3+/5 PT-OP-N Lymphedema Start: 11/19/19 12:12 Freq: Status: Active Protocol: Document 11/19/19 10:30 SAK (Rec: 11/19/19 14:05 SAK [id number]) Lymphedema Measurements Lower Extremity Circumference Measurements right LE MT Heads 27 cm Medial Malleolus 38.8 cm 10 cm From Medial Malleolus 43.1 cm 20 cm From Medial Malleolus 50.8 cm 30 cm From Medial Malleolus 60.4 cm 40 cm From Medial Malleolus 62 cm 50 cm From Medial Malleolus 74.5 cm 60 cm From Medial Malleolus 88.2 cm 70 cm From Medial Malleolus 94.8 cm 80 cm From Medial Malleolus 101.2 cm left LE MT Heads 26.8 cm Medial Malleolus 38.5 cm 10 cm From Medial Malleolus 39.6 cm 20 cm From Medial Malleolus 50.1 cm 30 cm From Medial Malleolus 57.4 cm 40 cm From Medial Malleolus 61 cm 50 cm From Medial Malleolus 70.5 cm 60 cm From Medial Malleolus 85.2 cm 70 cm From Medial Malleolus 95.8 cm 80 cm From Medial Malleolus 103.8 cm PT-OP-Q Treatments Start: 05/07/19 12:10 Freq: Status: Active Protocol: Document 11/19/19 10:30 [facility] (Rec: 11/19/19 14:05 [facility] [id number]) Therapeutic Exercises Sitting Exercises Sit to stands without UE support Reps/Minutes 9x Diaphragmatic breathing Reps/Minutes 5x Lymphedema Treatment Lymphedema Wrapping Body Location right LE toes to knee Materials Tricofix, Artiflex, and Comprilan, with Comprex kidney foam at ankles Other Skin care: lotion applied to bilateral LE's prior to wrapping Patient Education Lymphedema Pathology discussed Lymphedema Prevention handout given Lymphedema Precautions handout given Compression Garments discussed options Sequential Lymphedema Exercises handout given PT-OP-T Assessment and Plan Start: 05/07/19 12:10 Freq: Status: Active Protocol: Document 11/19/19 10:30 [facility] (Rec: 11/19/19 11:57 [facility] [id number]) Physical Therapy Assessment Rehab Potential Rehabilitation Potential Fair Evaluation Complexity Number of Personal Factors/Comorbidities 1-2 Number of Body Systems Impaired 3 Clinical Presentation at Evaluation Unstable Impairments Impairments Activity Tolerance,Balance, Edema,Functional Activities, Functional Mobility,Gait, Integument,Pain,Posture,ROM, Sensation,Soft Tissue Mobility ,Strength Other Impairments Pt presents with decreased sensation to light touch in his posterior LEs and feet. Goals 7 [employer] Goal (LTG) Patient will demonstrate good understanding of self- management of his LE edema and be fit with appropriate compression garment. LTG Duration 8 wks 6 Impairment bilateral LE edema right greater than left [employer] Goal (LTG) Decrease lymphedema to stable level (no increase or decrease greater than 1 cm over the course of 1 week). LTG Duration 8 wks 5 Group Home Goal (LTG) Pt will gait train 600 feet with LRAD in 6 minutes to improve community distance ambulation by 10/29/2019. 08/27/2019: Pt is able to gait train 421' with RW. 11/19/19: Reports decrease in gait tolerance. Not able to walk around neighborhood due to uneven sidewalks. No formal testing due to patient primarily being seen for lymphedema today. LTG Duration 8 weeks 4 Impairment Inability to perform sit to stand on eval date without UE support [employer] Goal (LTG) Pt will perform 15 reps sit to stand without UE support in 30 sec to improve functional I by 10/29/2019. 08/20/2019: 11 reps in 30 sec 11/19/19: 9 reps in 30 sec LTG Duration 8 weeks 3 Group Home Goal (LTG) Pt will perform progressive HEP with I including flexibility, strengthening, gait and balance exercises to increase functional mobility by 10/29/2019. 11/19/19: reports performing 2x /wk at home 08/20/2019: Pt is performing exercises sometimes. He understands all exercises 11/19/19: 2x/wk LTG Duration 8 weeks 2 Group Home Goal (LTG) Pt will deny falls for 2 months to decrease injury risk by 10/29/2019. 08/20/2019: No falls since 201911/19/19: Fell 14 days ago; kicked end of bed on way back from bathroom, lost balance, fell. Able to get self back up utilizing hospital bed controls LTG Duration 8 weeks 1 Group Home Goal (LTG) Pt will present with an improved Oswestry LBP scale score to reflect no more than 30% impairment by 10/29/2019. 08/27/2019: Pt presents with Oswestry LBP score reflecting 52% impairment 11/19/19: Oswestry 50% LTG Duration 8 weeks Assessment Summary Assessment Patient presents with function -limiting LE edema right greater than left and would benefit from PT intervention to decrease the edema, educate him in self-management, and help him to obtain appropriate compression which may need to be custom due to size. Patient verbalized understanding of all of the above. He has experienced a decline in his activity tolerance and experienced 1 fall since PT was put on hold due to Covid19. Feel his low activity level and obesity contribute to his edema. He would benefit from resumption of PT for his gait, balance, and HEP progression as well. Physical Therapy Plan Frequency and Duration Frequency of Treatment 2x/Week Duration of Treatment 8 weeks Plan of Care Start Date 11/19/19 Plan of Care End Date 01/18/20 Therapeutic Interventions Therapeutic Interventions Balance Training,Canalithic Repositioning,Gait Training, Home Exercise Program,Manual Therapy,Neuromuscular Re- education,Patient/Caregiver Education,Self-Care/Home Management,Sensory Integration ,Soft Tissue Mobilization, Taping,Therapeutic Activities, Therapeutic Exercises Next Visit Focus/Plan Next Note Type Treatment Note Next Visit Plan Continue PT for lymphedema management, gait and balance exercises and progression of HEP as tolerated.
--- NOTE | 2019-11-19 14:10 | PT.OPPOC ---
Physical, Occupational & Speech Therapy At [facility] Current Diagnoses Low back pain (11/19/19) Visit Care Team Role Provider Type Yolis Salazar DO Attending Provider Non-Staff Primary Care Provider Specialty: Family Practice Address: [address] [place] [address], [phone] Email: Plan Of Care PT-OP-T Assessment and Plan Start: 05/07/19 12:10 Freq: Status: Active Protocol: Document 11/19/19 10:30 SAK (Rec: 11/19/19 11:57 SAK [id number]) Physical Therapy Assessment Rehab Potential Rehabilitation Potential Fair Evaluation Complexity Number of Personal Factors/Comorbidities 1-2 Number of Body Systems Impaired 3 Clinical Presentation at Evaluation Unstable Impairments Impairments Activity Tolerance,Balance, Edema,Functional Activities, Functional Mobility,Gait, Integument,Pain,Posture,ROM, Sensation,Soft Tissue Mobility ,Strength Other Impairments Pt presents with decreased sensation to light touch in his posterior LEs and feet. Goals 7 Furnace Installer Helper Goal (LTG) Patient will demonstrate good understanding of self- management of his LE edema and be fit with appropriate compression garment. LTG Duration 8 wks 6 Impairment bilateral LE edema right greater than left Furnace Installer Helper Goal (LTG) Decrease lymphedema to stable level (no increase or decrease greater than 1 cm over the course of 1 week). LTG Duration 8 wks 5 Furnace Installer Helper Goal (LTG) Pt will gait train 600 feet with LRAD in 6 minutes to improve community distance ambulation by 10/29/2019. 08/27/2019: Pt is able to gait train 421' with RW. 11/19/19: Reports decrease in gait tolerance. Not able to walk around neighborhood due to uneven sidewalks. No formal testing due to patient primarily being seen for lymphedema today. LTG Duration 8 weeks 4 Impairment Inability to perform sit to stand on eval date without UE support Furnace Installer Helper Goal (LTG) Pt will perform 15 reps sit to stand without UE support in 30 sec to improve functional I by 10/29/2019. 08/20/2019: 11 reps in 30 sec 11/19/19: 9 reps in 30 sec LTG Duration 8 weeks 3 Furnace Installer Helper Goal (LTG) Pt will perform progressive HEP with I including flexibility, strengthening, gait and balance exercises to increase functional mobility by 10/29/2019. 11/19/19: reports performing 2x /wk at home 08/20/2019: Pt is performing exercises sometimes. He understands all exercises 11/19/19: 2x/wk LTG Duration 8 weeks 2 Assisted Goal (LTG) Pt will deny falls for 2 months to decrease injury risk by 10/29/2019. 08/20/2019: No falls since 201911/19/19: Fell 14 days ago; kicked end of bed on way back from bathroom, lost balance, fell. Able to get self back up utilizing hospital bed controls LTG Duration 8 weeks 1 Assisted Goal (LTG) Pt will present with an improved Oswestry LBP scale score to reflect no more than 30% impairment by 10/29/2019. 08/27/2019: Pt presents with Oswestry LBP score reflecting 52% impairment 11/19/19: Oswestry 50% LTG Duration 8 weeks Assessment Summary Assessment Patient presents with function -limiting LE edema right greater than left and would benefit from PT intervention to decrease the edema, educate him in self-management, and help him to obtain appropriate compression which may need to be custom due to size. Patient verbalized understanding of all of the above. He has experienced a decline in his activity tolerance and experienced 1 fall since PT was put on hold due to Covid19. Feel his low activity level and obesity contribute to his edema. He would benefit from resumption of PT for his gait, balance, and HEP progression as well. Physical Therapy Plan Frequency and Duration Frequency of Treatment 2x/Week Duration of Treatment 8 weeks Plan of Care Start Date 11/19/19 Plan of Care End Date 01/18/20 Therapeutic Interventions Therapeutic Interventions Balance Training,Canalithic Repositioning,Gait Training, Home Exercise Program,Manual Therapy,Neuromuscular Re- education,Patient/Caregiver Education,Self-Care/Home Management,Sensory Integration ,Soft Tissue Mobilization, Taping,Therapeutic Activities, Therapeutic Exercises Next Visit Focus/Plan Next Note Type Treatment Note Next Visit Plan Continue PT for lymphedema management, gait and balance exercises and progression of HEP as tolerated. Plan of Care Dates Plan of Care Start Date 11/19/19 Plan of Care End Date 01/18/20 Electronically Signed by: Blanche Sanches, PT 11/19/19 4809 Please Sign and Return: I have reviewed this Plan of Care and certify that the skilled therapy services above are required to meet the patient?s needs. Physician Signature Date Printed Name and Credentials Clinical Instructor Signature Printed Name and Credentials
--- NOTE | 2019-11-19 14:10 | PT.OTN ---
Current Diagnoses Low back pain (11/19/19) Physical Therapy Treatment Note PT-OP-A Visit Information Start: 05/07/19 12:10 Freq: Status: Active Protocol: Document 11/19/19 10:30 SAK (Rec: 11/19/19 14:05 [facility] [id number]) Out-Patient Physical Therapy Visit Information Visit Information Visit Type Re-Evaluation Visit Note Medicare Visit Start Time 10:30 Visit Stop Time 11:56 Total Visit Minutes 86 Visit Number 3/10 Precautions Precautions Falls, history of orthostasis and a-fib, pt takes Warfarin PT-OP-B Current Condition Start: 05/07/19 12:10 Freq: Status: Active Protocol: Document 11/19/19 10:30 SAK (Rec: 11/19/19 11:57 SAK [id number]) Current Condition History of Current Condition Onset Date 2 years Current Complaints swelling bilateral LE's History of Current Condition Swelling since fracture right ankle, treated with ORIF surgery and rehab. Mobility has declined, gradual worsening with weight gain. Some discoloration in LE's, swelling some improved with elevation. Doesn't wear compression garment because reports has been unable to find any large enough; has size 15 foot. Worse on right than left. Has been doing PT for mobility, strengthening, pain management. Reports pain creeping back up since not seen in physical therapy. Treatment Goals Patient/Caregiver Goals Decrease lymphedema bilateral LE's to allow improved mobility, improve health. PT-OP-C Subjective Start: 05/07/19 12:10 Freq: Status: Active Protocol: Document 11/19/19 10:30 SAK (Rec: 11/19/19 14:05 [facility] [id number]) OP-PT Subjective Patient Comments Patient Comments States he has been dealing with increasing edema bilateral LE's right greater than left ever since fractured ankle approximately 2 years ago. Has had 1 infected wound in his right LE over the past year. PT-OP-G Mobility & Gait Start: 05/07/19 12:10 Freq: Status: Active Protocol: Document 05/07/19 12:18 MB (Rec: 05/07/19 15:52 MB [id number]) OP Gait Assessment Comments Gait Comments Forward, flexed posture with use of his bariatric RW with tray. Decreased step-length and foot clearance and pt winces with pain after 112' gait and reports 6.5/10 LBP and so 6MWT stopped. He was able to walk this distance in 80 sec. PT-OP-M Strength Start: 05/07/19 12:10 Freq: Status: Active Protocol: Document 05/07/19 12:18 MB (Rec: 05/07/19 15:52 MB [id number]) Hip Strength Hip Manual Muscle Testing Left Flexion (L2) 2- Poor- Right Flexion (L2) 2- Poor- Comments Pt is unable to clear thigh off bench Knee Strength Knee Manual Muscle Testing Left Extension (L3) 3 Fair Comments Pt is unable to clear his foot back in sitting to assess knee flexion. Right Extension (L3) 3 Fair Comments Pt is unable to clear his foot back in sitting to assess knee flexion. Ankle/Foot Strength Ankle and Foot Manual Muscle Testing Left Dorsiflexion (L4) 4 Good Plantarflexion (S1) 4 Good Comments Great toe extension left 4/5 Right Dorsiflexion (L4) 4 Good Plantarflexion (S1) 3 Fair Comments Great toe extension right 3+/5 PT-OP-N Lymphedema Start: 11/19/19 12:12 Freq: Status: Active Protocol: Document 11/19/19 10:30 SAK (Rec: 11/19/19 14:05 SAK [id number]) Lymphedema Measurements Lower Extremity Circumference Measurements right LE MT Heads 27 cm Medial Malleolus 38.8 cm 10 cm From Medial Malleolus 43.1 cm 20 cm From Medial Malleolus 50.8 cm 30 cm From Medial Malleolus 60.4 cm 40 cm From Medial Malleolus 62 cm 50 cm From Medial Malleolus 74.5 cm 60 cm From Medial Malleolus 88.2 cm 70 cm From Medial Malleolus 94.8 cm 80 cm From Medial Malleolus 101.2 cm left LE MT Heads 26.8 cm Medial Malleolus 38.5 cm 10 cm From Medial Malleolus 39.6 cm 20 cm From Medial Malleolus 50.1 cm 30 cm From Medial Malleolus 57.4 cm 40 cm From Medial Malleolus 61 cm 50 cm From Medial Malleolus 70.5 cm 60 cm From Medial Malleolus 85.2 cm 70 cm From Medial Malleolus 95.8 cm 80 cm From Medial Malleolus 103.8 cm PT-OP-Q Treatments Start: 05/07/19 12:10 Freq: Status: Active Protocol: Document 11/19/19 10:30 [facility] (Rec: 11/19/19 14:05 [facility] [id number]) Therapeutic Exercises Sitting Exercises Sit to stands without UE support Reps/Minutes 9x Diaphragmatic breathing Reps/Minutes 5x Lymphedema Treatment Lymphedema Wrapping Body Location right LE toes to knee Materials Tricofix, Artiflex, and Comprilan, with Comprex kidney foam at ankles Other Skin care: lotion applied to bilateral LE's prior to wrapping Patient Education Lymphedema Pathology discussed Lymphedema Prevention handout given Lymphedema Precautions handout given Compression Garments discussed options Sequential Lymphedema Exercises handout given PT-OP-T Assessment and Plan Start: 05/07/19 12:10 Freq: Status: Active Protocol: Document 11/19/19 10:30 [facility] (Rec: 11/19/19 11:57 [facility] [id number]) Physical Therapy Assessment Rehab Potential Rehabilitation Potential Fair Evaluation Complexity Number of Personal Factors/Comorbidities 1-2 Number of Body Systems Impaired 3 Clinical Presentation at Evaluation Unstable Impairments Impairments Activity Tolerance,Balance, Edema,Functional Activities, Functional Mobility,Gait, Integument,Pain,Posture,ROM, Sensation,Soft Tissue Mobility ,Strength Other Impairments Pt presents with decreased sensation to light touch in his posterior LEs and feet. Goals 7 Long-Term Goal (LTG) Patient will demonstrate good understanding of self- management of his LE edema and be fit with appropriate compression garment. LTG Duration 8 wks 6 Impairment bilateral LE edema right greater than left Grocery Buyer Goal (LTG) Decrease lymphedema to stable level (no increase or decrease greater than 1 cm over the course of 1 week). LTG Duration 8 wks 5 Long-Term Goal (LTG) Pt will gait train 600 feet with LRAD in 6 minutes to improve community distance ambulation by 10/29/2019. 08/27/2019: Pt is able to gait train 421' with RW. 11/19/19: Reports decrease in gait tolerance. Not able to walk around neighborhood due to uneven sidewalks. No formal testing due to patient primarily being seen for lymphedema today. LTG Duration 8 weeks 4 Impairment Inability to perform sit to stand on eval date without UE support Grocery Buyer Goal (LTG) Pt will perform 15 reps sit to stand without UE support in 30 sec to improve functional I by 10/29/2019. 08/20/2019: 11 reps in 30 sec 11/19/19: 9 reps in 30 sec LTG Duration 8 weeks 3 Long-Term Goal (LTG) Pt will perform progressive HEP with I including flexibility, strengthening, gait and balance exercises to increase functional mobility by 10/29/2019. 11/19/19: reports performing 2x /wk at home 08/20/2019: Pt is performing exercises sometimes. He understands all exercises 11/19/19: 2x/wk LTG Duration 8 weeks 2 Grocery Buyer Goal (LTG) Pt will deny falls for 2 months to decrease injury risk by 10/29/2019. 08/20/2019: No falls since 201911/19/19: Fell 14 days ago; kicked end of bed on way back from bathroom, lost balance, fell. Able to get self back up utilizing hospital bed controls LTG Duration 8 weeks 1 Long-Term Goal (LTG) Pt will present with an improved Oswestry LBP scale score to reflect no more than 30% impairment by 10/29/2019. 08/27/2019: Pt presents with Oswestry LBP score reflecting 52% impairment 11/19/19: Oswestry 50% LTG Duration 8 weeks Assessment Summary Assessment Patient presents with function -limiting LE edema right greater than left and would benefit from PT intervention to decrease the edema, educate him in self-management, and help him to obtain appropriate compression which may need to be custom due to size. Patient verbalized understanding of all of the above. He has experienced a decline in his activity tolerance and experienced 1 fall since PT was put on hold due to Covid19. Feel his low activity level and obesity contribute to his edema. He would benefit from resumption of PT for his gait, balance, and HEP progression as well. Physical Therapy Plan Frequency and Duration Frequency of Treatment 2x/Week Duration of Treatment 8 weeks Plan of Care Start Date 11/19/19 Plan of Care End Date 01/18/20 Therapeutic Interventions Therapeutic Interventions Balance Training,Canalithic Repositioning,Gait Training, Home Exercise Program,Manual Therapy,Neuromuscular Re- education,Patient/Caregiver Education,Self-Care/Home Management,Sensory Integration ,Soft Tissue Mobilization, Taping,Therapeutic Activities, Therapeutic Exercises Next Visit Focus/Plan Next Note Type Treatment Note Next Visit Plan Continue PT for lymphedema management, gait and balance exercises and progression of HEP as tolerated.
--- NOTE | 2019-11-21 15:20 | PT.OTN ---
Current Diagnoses Low back pain (11/21/19) Physical Therapy Treatment Note PT-OP-A Visit Information Start: 05/07/19 12:10 Freq: Status: Active Protocol: Document 11/21/19 15:06 [facility] (Rec: 11/21/19 15:19 [facility] [id number]) Out-Patient Physical Therapy Visit Information Visit Information Visit Type Treatment Note Visit Note Medicare 20 min late Visit Start Time 13:20 Visit Stop Time 14:50 Total Visit Minutes 90 Visit Number 4/10 Precautions Precautions Falls, history of orthostasis and a-fib, pt takes Warfarin PT-OP-B Current Condition Start: 05/07/19 12:10 Freq: Status: Active Protocol: Document 11/21/19 15:06 SAK (Rec: 11/21/19 15:19 [facility] [id number]) Current Condition History of Current Condition Onset Date 2 years Current Complaints swelling bilateral LE's History of Current Condition Swelling since fracture right ankle, treated with ORIF surgery and rehab. Mobility has declined, gradual worsening with weight gain. Some discoloration in LE's, swelling some improved with elevation. Doesn't wear compression garment because reports has been unable to find any large enough; has size 15 foot. Worse on right than left. Has been doing PT for mobility, strengthening, pain management. Reports pain creeping back up since not seen in physical therapy. Treatment Goals Patient/Caregiver Goals Decrease lymphedema bilateral LE's to allow improved mobility, improve health. PT-OP-C Subjective Start: 05/07/19 12:10 Freq: Status: Active Protocol: Document 11/21/19 15:06 SAK (Rec: 11/21/19 15:19 [facility] [id number]) OP-PT Subjective Patient Comments Patient Comments States he removed lymphedema wraps this am. Forgot he was instructed to remove after 24 hrs. PT-OP-G Mobility & Gait Start: 05/07/19 12:10 Freq: Status: Active Protocol: Document 05/07/19 12:18 MB (Rec: 05/07/19 15:52 MB [id number]) OP Gait Assessment Comments Gait Comments Forward, flexed posture with use of his bariatric RW with tray. Decreased step-length and foot clearance and pt winces with pain after 112' gait and reports 6.5/10 LBP and so 6MWT stopped. He was able to walk this distance in 80 sec. PT-OP-M Strength Start: 05/07/19 12:10 Freq: Status: Active Protocol: Document 05/07/19 12:18 MB (Rec: 05/07/19 15:52 MB [id number]) Hip Strength Hip Manual Muscle Testing Left Flexion (L2) 2- Poor- Right Flexion (L2) 2- Poor- Comments Pt is unable to clear thigh off bench Knee Strength Knee Manual Muscle Testing Left Extension (L3) 3 Fair Comments Pt is unable to clear his foot back in sitting to assess knee flexion. Right Extension (L3) 3 Fair Comments Pt is unable to clear his foot back in sitting to assess knee flexion. Ankle/Foot Strength Ankle and Foot Manual Muscle Testing Left Dorsiflexion (L4) 4 Good Plantarflexion (S1) 4 Good Comments Great toe extension left 4/5 Right Dorsiflexion (L4) 4 Good Plantarflexion (S1) 3 Fair Comments Great toe extension right 3+/5 PT-OP-N Lymphedema Start: 11/19/19 12:12 Freq: Status: Active Protocol: Document 11/19/19 10:30 SAK (Rec: 11/19/19 14:05 SAK [id number]) Lymphedema Measurements Lower Extremity Circumference Measurements right LE MT Heads 27 cm Medial Malleolus 38.8 cm 10 cm From Medial Malleolus 43.1 cm 20 cm From Medial Malleolus 50.8 cm 30 cm From Medial Malleolus 60.4 cm 40 cm From Medial Malleolus 62 cm 50 cm From Medial Malleolus 74.5 cm 60 cm From Medial Malleolus 88.2 cm 70 cm From Medial Malleolus 94.8 cm 80 cm From Medial Malleolus 101.2 cm left LE MT Heads 26.8 cm Medial Malleolus 38.5 cm 10 cm From Medial Malleolus 39.6 cm 20 cm From Medial Malleolus 50.1 cm 30 cm From Medial Malleolus 57.4 cm 40 cm From Medial Malleolus 61 cm 50 cm From Medial Malleolus 70.5 cm 60 cm From Medial Malleolus 85.2 cm 70 cm From Medial Malleolus 95.8 cm 80 cm From Medial Malleolus 103.8 cm PT-OP-Q Treatments Start: 05/07/19 12:10 Freq: Status: Active Protocol: Document 11/21/19 15:06 SAK (Rec: 11/21/19 15:19 [facility] [id number]) Lymphedema Treatment Manual Lymphatic Drainage Location trunk and daisy LE's Duration 40 Lymphedema Wrapping Body Location bilateral LE's toes to lower thigh Materials Tricofix, Artiflex, and Comprilan, with Comprex kidney foam at malleoli. Other Skin care: lotion applied to bilateral LE's prior to wrapping Sequential Lymphedema Exercises Location bilateral LE's Duration 5x Patient Education Lymphedema Pathology reviewed Self Manual Lymphatic Drainage patient unable Other Other patient advised to return with all lymphedema wraps at next session. PT-OP-T Assessment and Plan Start: 05/07/19 12:10 Freq: Status: Active Protocol: Document 11/21/19 15:06 [facility] (Rec: 11/21/19 15:19 [facility] [id number]) Physical Therapy Assessment Rehab Potential Rehabilitation Potential Fair Evaluation Complexity Number of Personal Factors/Comorbidities 1-2 Number of Body Systems Impaired 3 Clinical Presentation at Evaluation Unstable Impairments Impairments Activity Tolerance,Balance, Edema,Functional Activities, Functional Mobility,Gait, Integument,Pain,Posture,ROM, Sensation,Soft Tissue Mobility ,Strength Other Impairments Pt presents with decreased sensation to light touch in his posterior LEs and feet. Goals 7 Software Quality Test Engineer Goal (LTG) Patient will demonstrate good understanding of self- management of his LE edema and be fit with appropriate compression garment. LTG Duration 8 wks 6 Impairment bilateral LE edema right greater than left Software Quality Test Engineer Goal (LTG) Decrease lymphedema to stable level (no increase or decrease greater than 1 cm over the course of 1 week). LTG Duration 8 wks 5 [facility] Goal (LTG) Pt will gait train 600 feet with LRAD in 6 minutes to improve community distance ambulation by 10/29/2019. 08/27/2019: Pt is able to gait train 421' with RW. 11/19/19: Reports decrease in gait tolerance. Not able to walk around neighborhood due to uneven sidewalks. No formal testing due to patient primarily being seen for lymphedema today. LTG Duration 8 weeks 4 Impairment Inability to perform sit to stand on eval date without UE support Software Quality Test Engineer Goal (LTG) Pt will perform 15 reps sit to stand without UE support in 30 sec to improve functional I by 10/29/2019. 08/20/2019: 11 reps in 30 sec 11/19/19: 9 reps in 30 sec LTG Duration 8 weeks 3 Software Quality Test Engineer Goal (LTG) Pt will perform progressive HEP with I including flexibility, strengthening, gait and balance exercises to increase functional mobility by 10/29/2019. 11/19/19: reports performing 2x /wk at home 08/20/2019: Pt is performing exercises sometimes. He understands all exercises 11/19/19: 2x/wk LTG Duration 8 weeks 2 [facility] Goal (LTG) Pt will deny falls for 2 months to decrease injury risk by 10/29/2019. 08/20/2019: No falls since 201911/19/19: Fell 14 days ago; kicked end of bed on way back from bathroom, lost balance, fell. Able to get self back up utilizing hospital bed controls LTG Duration 8 weeks 1 [facility] Goal (LTG) Pt will present with an improved Oswestry LBP scale score to reflect no more than 30% impairment by 10/29/2019. 08/27/2019: Pt presents with Oswestry LBP score reflecting 52% impairment 11/19/19: Oswestry 50% LTG Duration 8 weeks Assessment Summary Assessment Patient mobility limitations and low activity level make self-care for lymphedema difficult. He tolerated MLD well. Needs modification in positioning for lymphedema wrapping as has poor tolerance for standing. Size of thighs makes it difficult for compression wraps to stay up. For donning and doffing feel compression alternative (ie Circ Aid) may be best, but in terms of staying in place and providing best compression feel full length pantyhose style compression stockings would be best. Will need to discuss further with patient and compression garment expert at [facility]. Physical Therapy Plan Frequency and Duration Frequency of Treatment 2x/Week Duration of Treatment 8 weeks Plan of Care Start Date 11/19/19 Plan of Care End Date 01/18/20 Therapeutic Interventions Therapeutic Interventions Balance Training,Canalithic Repositioning,Gait Training, Home Exercise Program,Manual Therapy,Neuromuscular Re- education,Patient/Caregiver Education,Self-Care/Home Management,Sensory Integration ,Soft Tissue Mobilization, Taping,Therapeutic Activities, Therapeutic Exercises Next Visit Focus/Plan Next Note Type Treatment Note Next Visit Plan Circumferential measurements daisy LE's, continue lymphedema management. Show patient compression alternative garments and pantyhose style and discuss further.
--- NOTE | 2019-11-28 17:43 | PT.OTN ---
Current Diagnoses Low back pain (11/28/19) Physical Therapy Treatment Note PT-OP-A Visit Information Start: 05/07/19 12:10 Freq: Status: Active Protocol: Document 11/28/19 16:50 MB (Rec: 11/28/19 17:30 MB [id number]) Out-Patient Physical Therapy Visit Information Visit Information Visit Type Treatment Note Visit Note Medicare, unlimited visits Pt's ride arrives 5 minutes late Visit Start Time 16:50 Visit Stop Time 17:30 Total Visit Minutes 40 Visit Number 07/05 Precautions Precautions Falls, history of orthostasis and a-fib, lymphedema, pt on Eloquist 2x/day PT-OP-B Current Condition Start: 05/07/19 12:10 Freq: Status: Active Protocol: Document 11/21/19 15:06 SAK (Rec: 11/21/19 15:19 SAK [id number]) Current Condition History of Current Condition Onset Date 2 years Current Complaints swelling bilateral LE's History of Current Condition Swelling since fracture right ankle, treated with ORIF surgery and rehab. Mobility has declined, gradual worsening with weight gain. Some discoloration in LE's, swelling some improved with elevation. Doesn't wear compression garment because reports has been unable to find any large enough; has size 15 foot. Worse on right than left. Has been doing PT for mobility, strengthening, pain management. Reports pain creeping back up since not seen in physical therapy. Treatment Goals Patient/Caregiver Goals Decrease lymphedema bilateral LE's to allow improved mobility, improve health. PT-OP-C Subjective Start: 05/07/19 12:10 Freq: Status: Active Protocol: Document 11/28/19 16:50 MB (Rec: 11/28/19 17:30 MB [id number]) Patient Questionnaires Oswestry Low Back Index Oswestry Score 64 Oswestry Impairment 60 to 79% Impaired (Score 60- 79) PT-OP-G Mobility & Gait Start: 05/07/19 12:10 Freq: Status: Active Protocol: Document 05/07/19 12:18 MB (Rec: 05/07/19 15:52 MB [id number]) OP Gait Assessment Comments Gait Comments Forward, flexed posture with use of his bariatric RW with tray. Decreased step-length and foot clearance and pt winces with pain after 112' gait and reports 6.5/10 LBP and so 6MWT stopped. He was able to walk this distance in 80 sec. PT-OP-M Strength Start: 05/07/19 12:10 Freq: Status: Active Protocol: Document 05/07/19 12:18 MB (Rec: 05/07/19 15:52 MB [id number]) Hip Strength Hip Manual Muscle Testing Left Flexion (L2) 2- Poor- Right Flexion (L2) 2- Poor- Comments Pt is unable to clear thigh off bench Knee Strength Knee Manual Muscle Testing Left Extension (L3) 3 Fair Comments Pt is unable to clear his foot back in sitting to assess knee flexion. Right Extension (L3) 3 Fair Comments Pt is unable to clear his foot back in sitting to assess knee flexion. Ankle/Foot Strength Ankle and Foot Manual Muscle Testing Left Dorsiflexion (L4) 4 Good Plantarflexion (S1) 4 Good Comments Great toe extension left 4/5 Right Dorsiflexion (L4) 4 Good Plantarflexion (S1) 3 Fair Comments Great toe extension right 3+/5 PT-OP-N Lymphedema Start: 11/19/19 12:12 Freq: Status: Active Protocol: Document 11/19/19 10:30 SAK (Rec: 11/19/19 14:05 SAK [id number]) Lymphedema Measurements Lower Extremity Circumference Measurements right LE MT Heads 27 cm Medial Malleolus 38.8 cm 10 cm From Medial Malleolus 43.1 cm 20 cm From Medial Malleolus 50.8 cm 30 cm From Medial Malleolus 60.4 cm 40 cm From Medial Malleolus 62 cm 50 cm From Medial Malleolus 74.5 cm 60 cm From Medial Malleolus 88.2 cm 70 cm From Medial Malleolus 94.8 cm 80 cm From Medial Malleolus 101.2 cm left LE MT Heads 26.8 cm Medial Malleolus 38.5 cm 10 cm From Medial Malleolus 39.6 cm 20 cm From Medial Malleolus 50.1 cm 30 cm From Medial Malleolus 57.4 cm 40 cm From Medial Malleolus 61 cm 50 cm From Medial Malleolus 70.5 cm 60 cm From Medial Malleolus 85.2 cm 70 cm From Medial Malleolus 95.8 cm 80 cm From Medial Malleolus 103.8 cm PT-OP-Q Treatments Start: 05/07/19 12:10 Freq: Status: Active Protocol: Document 11/28/19 16:50 MB (Rec: 11/28/19 17:30 MB [id number]) Therapeutic Exercises Sitting Exercises Diaphragmatic breathing Comments 5 reps after sit to stands d/t 9/10 back pain Standing Exercises Sit to stands Comments 30 sec without UE support: 10 reps Other Exercises Verbally reviewed HEP Other Exercise Name Sitting: APs, EFT, scapular retraction, diaphram breathing , shoulder abd/fl Comments Standing: not performing currently d/t back, occ heel raises Gait Training Gait Activity Stepping on unstable surfaces Comments 6MWT 458 feet with rolling walker and two rest breaks. Back pain starts at 4/10 and increases to 7.5/10 PT-OP-T Assessment and Plan Start: 05/07/19 12:10 Freq: Status: Active Protocol: Document 11/28/19 16:50 MB (Rec: 11/28/19 17:30 MB [id number]) Physical Therapy Assessment Rehab Potential Rehabilitation Potential Fair Evaluation Complexity Number of Personal Factors/Comorbidities 1-2 Number of Body Systems Impaired 3 Clinical Presentation at Evaluation Unstable Impairments Impairments Activity Tolerance,Balance, Edema,Functional Activities, Functional Mobility,Gait, Integument,Pain,Posture,ROM, Sensation,Soft Tissue Mobility ,Strength Other Impairments Pt presents with decreased sensation to light touch in his posterior LEs and feet. Goals 7 Jail Goal (LTG) Patient will demonstrate good understanding of self- management of his LE edema and be fit with appropriate compression garment. LTG Duration 8 wks 6 Impairment bilateral LE edema right greater than left Jail Goal (LTG) Decrease lymphedema to stable level (no increase or decrease greater than 1 cm over the course of 1 week). LTG Duration 8 wks 5 Basket Filler Goal (LTG) Pt will gait train 600 feet with LRAD in 6 minutes to improve community distance ambulation by 01/28/2020. 11/28/2019: Pt gait trains 458 ft in 6 minutes with rolling walker LTG Duration 8 weeks 4 Impairment Inability to perform sit to stand on eval date without UE support Basket Filler Goal (LTG) Pt will perform 15 reps sit to stand without UE support in 30 sec to improve functional I by 01/28/2020. 11/28/2019: LTG Duration 8 weeks 3 Basket Filler Goal (LTG) Pt will perform progressive HEP with I including flexibility, strengthening, gait and balance exercises to increase functional mobility by 01/28/2020. 11/28/2019: Pt has been doing some exercises LTG Duration 8 weeks 2 Jail Goal (LTG) Pt will deny falls for 2 months to decrease injury risk by 01/28/2020. 11/28/2019: Pt had fall OOB when his lymphedema wraps prevented him from extending his legs. EMS had to help him get up LTG Duration 8 weeks 1 Jail Goal (LTG) Pt will present with an improved Oswestry LBP scale score to reflect no more than 30% impairment by 01/28/2020. 11/28/2019: Pt presents with Oswestry LBP score reflecting 64% impairment LTG Duration 8 weeks Assessment Summary Assessment Mobility progress note after COVID closure. Pt has been performing some of his HEP at home, has had one fall d/t lymphedema dressings inhibiting him to stand upright when getting up from sleeping, Oswestry and Gait scores have not improved, sit to stands are 10 in 30 sec. These findings are expected after no PT since August. His sit to stands and 6MWT were performed today and that is an improvement compared to when he could not do both in the same treatment. 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 Previously, he could not walk that long. Similarly, 10 reps of sit to stands is an overall improvement since starting PT. Back pain is a limiting factor today. The face mask is problematic for his breathing practice. Pt will benefit from ongoing mobility, strengthening, balance training as well as lymphedema therapy as determined by lymphedema therapist. Physical Therapy Plan Frequency and Duration Frequency of Treatment 2x/Week Duration of Treatment 8 weeks Plan of Care Start Date 11/19/19 Plan of Care End Date 01/28/20 Therapeutic Interventions Therapeutic Interventions Balance Training,Canalithic Repositioning,Gait Training, Home Exercise Program, Lymphedema Management,Manual Therapy,Neuromuscular Re- education,Patient/Caregiver Education,Self-Care/Home Management,Sensory Integration ,Soft Tissue Mobilization, Taping,Therapeutic Activities, Therapeutic Exercises Next Visit Focus/Plan Next Note Type Treatment Note Next Visit Plan Review and progress exercises
--- NOTE | 2019-12-17 12:58 | PT.OTN ---
Current Diagnoses Low back pain (12/17/19) Physical Therapy Treatment Note PT-OP-A Visit Information Start: 05/07/19 12:10 Freq: Status: Active Protocol: Document 12/17/19 12:16 MB (Rec: 12/17/19 12:58 MB [id number]) Out-Patient Physical Therapy Visit Information Visit Information Visit Type Treatment Note Visit Note Medicare, unlimited visits Visit Start Time 12:16 Visit Stop Time 12:48 Total Visit Minutes 42 Visit Number 2 Precautions Precautions Falls, history of orthostasis and a-fib, lymphedema, pt on Eloquist 2x/day PT-OP-B Current Condition Start: 05/07/19 12:10 Freq: Status: Active Protocol: Document 11/21/19 15:06 SAK (Rec: 11/21/19 15:19 SAK [id number]) Current Condition History of Current Condition Onset Date 2 years Current Complaints swelling bilateral LE's History of Current Condition Swelling since fracture right ankle, treated with ORIF surgery and rehab. Mobility has declined, gradual worsening with weight gain. Some discoloration in LE's, swelling some improved with elevation. Doesn't wear compression garment because reports has been unable to find any large enough; has size 15 foot. Worse on right than left. Has been doing PT for mobility, strengthening, pain management. Reports pain creeping back up since not seen in physical therapy. Treatment Goals Patient/Caregiver Goals Decrease lymphedema bilateral LE's to allow improved mobility, improve health. PT-OP-C Subjective Start: 05/07/19 12:10 Freq: Status: Active Protocol: Document 12/17/19 12:16 MB (Rec: 12/17/19 12:58 MB [id number]) OP-PT Subjective Patient Comments Patient Comments Pt reports back pain 5/10 today. PT-OP-G Mobility & Gait Start: 05/07/19 12:10 Freq: Status: Active Protocol: Document 05/07/19 12:18 MB (Rec: 05/07/19 15:52 MB [id number]) OP Gait Assessment Comments Gait Comments Forward, flexed posture with use of his bariatric RW with tray. Decreased step-length and foot clearance and pt winces with pain after 112' gait and reports 6.5/10 LBP and so 6MWT stopped. He was able to walk this distance in 80 sec. PT-OP-M Strength Start: 05/07/19 12:10 Freq: Status: Active Protocol: Document 05/07/19 12:18 MB (Rec: 05/07/19 15:52 MB [id number]) Hip Strength Hip Manual Muscle Testing Left Flexion (L2) 2- Poor- Right Flexion (L2) 2- Poor- Comments Pt is unable to clear thigh off bench Knee Strength Knee Manual Muscle Testing Left Extension (L3) 3 Fair Comments Pt is unable to clear his foot back in sitting to assess knee flexion. Right Extension (L3) 3 Fair Comments Pt is unable to clear his foot back in sitting to assess knee flexion. Ankle/Foot Strength Ankle and Foot Manual Muscle Testing Left Dorsiflexion (L4) 4 Good Plantarflexion (S1) 4 Good Comments Great toe extension left 4/5 Right Dorsiflexion (L4) 4 Good Plantarflexion (S1) 3 Fair Comments Great toe extension right 3+/5 PT-OP-N Lymphedema Start: 11/19/19 12:12 Freq: Status: Active Protocol: Document 11/19/19 10:30 SAK (Rec: 11/19/19 14:05 SAK [id number]) Lymphedema Measurements Lower Extremity Circumference Measurements right LE MT Heads 27 cm Medial Malleolus 38.8 cm 10 cm From Medial Malleolus 43.1 cm 20 cm From Medial Malleolus 50.8 cm 30 cm From Medial Malleolus 60.4 cm 40 cm From Medial Malleolus 62 cm 50 cm From Medial Malleolus 74.5 cm 60 cm From Medial Malleolus 88.2 cm 70 cm From Medial Malleolus 94.8 cm 80 cm From Medial Malleolus 101.2 cm left LE MT Heads 26.8 cm Medial Malleolus 38.5 cm 10 cm From Medial Malleolus 39.6 cm 20 cm From Medial Malleolus 50.1 cm 30 cm From Medial Malleolus 57.4 cm 40 cm From Medial Malleolus 61 cm 50 cm From Medial Malleolus 70.5 cm 60 cm From Medial Malleolus 85.2 cm 70 cm From Medial Malleolus 95.8 cm 80 cm From Medial Malleolus 103.8 cm PT-OP-Q Treatments Start: 05/07/19 12:10 Freq: Status: Active Protocol: Document 12/17/19 12:16 MB (Rec: 12/17/19 12:58 MB [id number]) Cardio Equipment Upper Body Ergometer (UBE) Duration (Minutes) 6 Other 3' forward and 3' backwards, rest breaks Therapeutic Exercises Sitting Exercises Basketball tosses and ball overhead Comments 10 catches, reach overhead after catching and before throwing back Hamstring and AP stretch/gastroc stretch in sitting Comments B 1 rep, 30 sec; AP 20 reps Diaphragmatic breathing Comments Performed during rest breaks Ball kicking Comments Foot tapping on top of ball when getting it, swapping feet Standing Exercises Sit to stands Comments 30 sec without UE support, 6.5 reps, pain 5.5/10 PT-OP-T Assessment and Plan Start: 05/07/19 12:10 Freq: Status: Active Protocol: Document 12/17/19 12:16 MB (Rec: 12/17/19 12:58 MB [id number]) Physical Therapy Assessment Rehab Potential Rehabilitation Potential Fair Evaluation Complexity Number of Personal Factors/Comorbidities 1-2 Number of Body Systems Impaired 3 Clinical Presentation at Evaluation Unstable Impairments Impairments Activity Tolerance,Balance, Edema,Functional Activities, Functional Mobility,Gait, Integument,Pain,Posture,ROM, Sensation,Soft Tissue Mobility ,Strength Other Impairments Pt presents with decreased sensation to light touch in his posterior LEs and feet. Goals 7 Angiographer Goal (LTG) Patient will demonstrate good understanding of self- management of his LE edema and be fit with appropriate compression garment. LTG Duration 8 wks 6 Impairment bilateral LE edema right greater than left Angiographer Goal (LTG) Decrease lymphedema to stable level (no increase or decrease greater than 1 cm over the course of 1 week). LTG Duration 8 wks 5 Shelter Goal (LTG) Pt will gait train 600 feet with LRAD in 6 minutes to improve community distance ambulation by 01/28/2020. 11/28/2019: Pt gait trains 458 ft in 6 minutes with rolling walker LTG Duration 8 weeks 4 Impairment Inability to perform sit to stand on eval date without UE support Shelter Goal (LTG) Pt will perform 15 reps sit to stand without UE support in 30 sec to improve functional I by 01/28/2020. 11/28/2019: LTG Duration 8 weeks 3 Shelter Goal (LTG) Pt will perform progressive HEP with I including flexibility, strengthening, gait and balance exercises to increase functional mobility by 01/28/2020. 11/28/2019: Pt has been doing some exercises LTG Duration 8 weeks 2 Shelter Goal (LTG) Pt will deny falls for 2 months to decrease injury risk by 01/28/2020. 11/28/2019: Pt had fall OOB when his lymphedema wraps prevented him from extending his legs. EMS had to help him get up LTG Duration 8 weeks 1 Angiographer Goal (LTG) Pt will present with an improved Oswestry LBP scale score to reflect no more than 30% impairment by 01/28/2020. 11/28/2019: Pt presents with Oswestry LBP score reflecting 64% impairment LTG Duration 8 weeks Assessment Summary Assessment Pt brings in note from Dr. Salazar to con't PT without precautions. Pt states that his BP was 103/84 when last checked by doctor office. He can tell if his BP feels low. Ongoing LBP 5/10 today that limits gait distance today. Standing, getting up and down and walking increase the pain. Will progress walking exercises as pt can tolerate d /t back pain. Pt takes a lot of rest breaks today, appears deconditioned and back pain limits exercises today. Pt reports transient CP with retropulsion on arm bike today that goes away with stopping motion. Pt will call if an pain persists after treatment . 40' gait with RW b/t sitting exercises and UBE. Physical Therapy Plan Frequency and Duration Frequency of Treatment 2x/Week Duration of Treatment 8 weeks Plan of Care Start Date 11/19/19 Plan of Care End Date 01/28/20 Therapeutic Interventions Therapeutic Interventions Balance Training,Canalithic Repositioning,Gait Training, Home Exercise Program, Lymphedema Management,Manual Therapy,Neuromuscular Re- education,Patient/Caregiver Education,Self-Care/Home Management,Sensory Integration ,Soft Tissue Mobilization, Taping,Therapeutic Activities, Therapeutic Exercises Next Visit Focus/Plan Next Note Type Treatment Note Next Visit Plan Review and progress exercises
--- NOTE | 2019-12-24 13:05 | PT.OTN ---
Current Diagnoses Low back pain (12/24/19) Physical Therapy Treatment Note PT-OP-A Visit Information Start: 05/07/19 12:10 Freq: Status: Active Protocol: Document 12/24/19 12:14 MB (Rec: 12/24/19 12:57 MB [id number]) Out-Patient Physical Therapy Visit Information Visit Information Visit Type Treatment Note Visit Note Medicare, unlimited visits Visit Start Time 12:14 Visit Stop Time 12:57 Total Visit Minutes 43 Visit Number 3/ Precautions Precautions Falls, history of orthostasis and a-fib, lymphedema, pt on Eloquist 2x/day PT-OP-B Current Condition Start: 05/07/19 12:10 Freq: Status: Active Protocol: Document 11/21/19 15:06 SAK (Rec: 11/21/19 15:19 SAK [id number]) Current Condition History of Current Condition Onset Date 2 years Current Complaints swelling bilateral LE's History of Current Condition Swelling since fracture right ankle, treated with ORIF surgery and rehab. Mobility has declined, gradual worsening with weight gain. Some discoloration in LE's, swelling some improved with elevation. Doesn't wear compression garment because reports has been unable to find any large enough; has size 15 foot. Worse on right than left. Has been doing PT for mobility, strengthening, pain management. Reports pain creeping back up since not seen in physical therapy. Treatment Goals Patient/Caregiver Goals Decrease lymphedema bilateral LE's to allow improved mobility, improve health. PT-OP-C Subjective Start: 05/07/19 12:10 Freq: Status: Active Protocol: Document 12/24/19 12:14 MB (Rec: 12/24/19 12:57 MB [id number]) OP-PT Subjective Patient Comments Patient Comments Pt reports 4/10 back pain on arrival. PT-OP-G Mobility & Gait Start: 05/07/19 12:10 Freq: Status: Active Protocol: Document 05/07/19 12:18 MB (Rec: 05/07/19 15:52 MB [id number]) OP Gait Assessment Comments Gait Comments Forward, flexed posture with use of his bariatric RW with tray. Decreased step-length and foot clearance and pt winces with pain after 112' gait and reports 6.5/10 LBP and so 6MWT stopped. He was able to walk this distance in 80 sec. PT-OP-M Strength Start: 05/07/19 12:10 Freq: Status: Active Protocol: Document 05/07/19 12:18 MB (Rec: 05/07/19 15:52 MB [id number]) Hip Strength Hip Manual Muscle Testing Left Flexion (L2) 2- Poor- Right Flexion (L2) 2- Poor- Comments Pt is unable to clear thigh off bench Knee Strength Knee Manual Muscle Testing Left Extension (L3) 3 Fair Comments Pt is unable to clear his foot back in sitting to assess knee flexion. Right Extension (L3) 3 Fair Comments Pt is unable to clear his foot back in sitting to assess knee flexion. Ankle/Foot Strength Ankle and Foot Manual Muscle Testing Left Dorsiflexion (L4) 4 Good Plantarflexion (S1) 4 Good Comments Great toe extension left 4/5 Right Dorsiflexion (L4) 4 Good Plantarflexion (S1) 3 Fair Comments Great toe extension right 3+/5 PT-OP-N Lymphedema Start: 11/19/19 12:12 Freq: Status: Active Protocol: Document 11/19/19 10:30 SAK (Rec: 11/19/19 14:05 SAK [id number]) Lymphedema Measurements Lower Extremity Circumference Measurements right LE MT Heads 27 cm Medial Malleolus 38.8 cm 10 cm From Medial Malleolus 43.1 cm 20 cm From Medial Malleolus 50.8 cm 30 cm From Medial Malleolus 60.4 cm 40 cm From Medial Malleolus 62 cm 50 cm From Medial Malleolus 74.5 cm 60 cm From Medial Malleolus 88.2 cm 70 cm From Medial Malleolus 94.8 cm 80 cm From Medial Malleolus 101.2 cm left LE MT Heads 26.8 cm Medial Malleolus 38.5 cm 10 cm From Medial Malleolus 39.6 cm 20 cm From Medial Malleolus 50.1 cm 30 cm From Medial Malleolus 57.4 cm 40 cm From Medial Malleolus 61 cm 50 cm From Medial Malleolus 70.5 cm 60 cm From Medial Malleolus 85.2 cm 70 cm From Medial Malleolus 95.8 cm 80 cm From Medial Malleolus 103.8 cm PT-OP-Q Treatments Start: 05/07/19 12:10 Freq: Status: Active Protocol: Document 12/24/19 12:14 MB (Rec: 12/24/19 12:57 MB [id number]) Cardio Equipment Upper Body Ergometer (UBE) Duration (Minutes) 6 Other 3' forward and 3' backwards, rest break often Gait Training Gait Activity Stepping on unstable surfaces Comments // bars 10' x3 and pt sits d/t ECHEVARRIA and light-headedness. O2 sats 96% on RA; // bars 10'x6 and rest Gait trials without AD: 56 feet, 134 feet and back pain increases from 4 to 6/10; 93 feet and pain increases to 7- 10/10 and pt requires to stop treatment. Pt uses rail in hallway x2 last gait trial. PT-OP-T Assessment and Plan Start: 05/07/19 12:10 Freq: Status: Active Protocol: Document 12/24/19 12:14 MB (Rec: 12/24/19 12:57 MB [id number]) Physical Therapy Assessment Rehab Potential Rehabilitation Potential Fair Evaluation Complexity Number of Personal Factors/Comorbidities 1-2 Number of Body Systems Impaired 3 Clinical Presentation at Evaluation Unstable Impairments Impairments Activity Tolerance,Balance, Edema,Functional Activities, Functional Mobility,Gait, Integument,Pain,Posture,ROM, Sensation,Soft Tissue Mobility ,Strength Other Impairments Pt presents with decreased sensation to light touch in his posterior LEs and feet. Goals 7 Pyrotechnic Mixer Goal (LTG) Patient will demonstrate good understanding of self- management of his LE edema and be fit with appropriate compression garment. LTG Duration 8 wks 6 Impairment bilateral LE edema right greater than left Alf Goal (LTG) Decrease lymphedema to stable level (no increase or decrease greater than 1 cm over the course of 1 week). LTG Duration 8 wks 5 Pyrotechnic Mixer Goal (LTG) Pt will gait train 600 feet with LRAD in 6 minutes to improve community distance ambulation by 01/28/2020. 11/28/2019: Pt gait trains 458 ft in 6 minutes with rolling walker LTG Duration 8 weeks 4 Impairment Inability to perform sit to stand on eval date without UE support Pyrotechnic Mixer Goal (LTG) Pt will perform 15 reps sit to stand without UE support in 30 sec to improve functional I by 01/28/2020. 11/28/2019: LTG Duration 8 weeks 3 Alf Goal (LTG) Pt will perform progressive HEP with I including flexibility, strengthening, gait and balance exercises to increase functional mobility by 01/28/2020. 11/28/2019: Pt has been doing some exercises LTG Duration 8 weeks 2 Pyrotechnic Mixer Goal (LTG) Pt will deny falls for 2 months to decrease injury risk by 01/28/2020. 11/28/2019: Pt had fall OOB when his lymphedema wraps prevented him from extending his legs. EMS had to help him get up LTG Duration 8 weeks 1 Alf Goal (LTG) Pt will present with an improved Oswestry LBP scale score to reflect no more than 30% impairment by 01/28/2020. 11/28/2019: Pt presents with Oswestry LBP score reflecting 64% impairment LTG Duration 8 weeks Assessment Summary Assessment Pt reports ECHEVARRIA and light- headedness with gait activities. He has known history of orthostasis and PT and pt revise activities by his symptoms. His O2 sats on RA stay 94-96% with gait today . He requires extended sitting rest breaks between all gait trials d/t ECHEVARRIA, light- headedness and back pain. Pain gets up to 7-10/10 after last gait trial. Physical Therapy Plan Frequency and Duration Frequency of Treatment 2x/Week Duration of Treatment 8 weeks Plan of Care Start Date 11/19/19 Plan of Care End Date 01/28/20 Therapeutic Interventions Therapeutic Interventions Balance Training,Canalithic Repositioning,Gait Training, Home Exercise Program, Lymphedema Management,Manual Therapy,Neuromuscular Re- education,Patient/Caregiver Education,Self-Care/Home Management,Sensory Integration ,Soft Tissue Mobilization, Taping,Therapeutic Activities, Therapeutic Exercises Next Visit Focus/Plan Next Note Type Treatment Note Next Visit Plan Review and progress exercises
--- NOTE | 2019-12-26 16:27 | PT.OTN ---
Current Diagnoses Lymphedema, not elsewhere classified (12/26/19) Low back pain (12/26/19) Physical Therapy Treatment Note PT-OP-A Visit Information Start: 05/07/19 12:10 Freq: Status: Active Protocol: Document 12/26/19 16:08 SAK (Rec: 12/26/19 16:22 [facility] [id number]) Out-Patient Physical Therapy Visit Information Visit Information Visit Type Treatment Note Visit Note Medicare Visit Start Time 13:00 Visit Stop Time 14:25 Total Visit Minutes 85 Visit Number 4/ Precautions Precautions Falls, history of orthostasis and a-fib, lymphedema, pt on Eloquist 2x/day PT-OP-B Current Condition Start: 05/07/19 12:10 Freq: Status: Active Protocol: Document 11/21/19 15:06 SAK (Rec: 11/21/19 15:19 [facility] [id number]) Current Condition History of Current Condition Onset Date 2 years Current Complaints swelling bilateral LE's History of Current Condition Swelling since fracture right ankle, treated with ORIF surgery and rehab. Mobility has declined, gradual worsening with weight gain. Some discoloration in LE's, swelling some improved with elevation. Doesn't wear compression garment because reports has been unable to find any large enough; has size 15 foot. Worse on right than left. Has been doing PT for mobility, strengthening, pain management. Reports pain creeping back up since not seen in physical therapy. Treatment Goals Patient/Caregiver Goals Decrease lymphedema bilateral LE's to allow improved mobility, improve health. PT-OP-C Subjective Start: 05/07/19 12:10 Freq: Status: Active Protocol: Document 12/26/19 16:08 [facility] (Rec: 12/26/19 16:22 [facility] [id number]) OP-PT Subjective Patient Comments Patient Comments Patient reports he feels like his leg swelling was improved after his last appointment for lymphedema, and still feels some better. States it is easier to put his shoes on. Has lost 12 lbs. PT-OP-G Mobility & Gait Start: 05/07/19 12:10 Freq: Status: Active Protocol: Document 05/07/19 12:18 MB (Rec: 05/07/19 15:52 MB [id number]) OP Gait Assessment Comments Gait Comments Forward, flexed posture with use of his bariatric RW with tray. Decreased step-length and foot clearance and pt winces with pain after 112' gait and reports 6.5/10 LBP and so 6MWT stopped. He was able to walk this distance in 80 sec. PT-OP-M Strength Start: 05/07/19 12:10 Freq: Status: Active Protocol: Document 05/07/19 12:18 MB (Rec: 05/07/19 15:52 MB [id number]) Hip Strength Hip Manual Muscle Testing Left Flexion (L2) 2- Poor- Right Flexion (L2) 2- Poor- Comments Pt is unable to clear thigh off bench Knee Strength Knee Manual Muscle Testing Left Extension (L3) 3 Fair Comments Pt is unable to clear his foot back in sitting to assess knee flexion. Right Extension (L3) 3 Fair Comments Pt is unable to clear his foot back in sitting to assess knee flexion. Ankle/Foot Strength Ankle and Foot Manual Muscle Testing Left Dorsiflexion (L4) 4 Good Plantarflexion (S1) 4 Good Comments Great toe extension left 4/5 Right Dorsiflexion (L4) 4 Good Plantarflexion (S1) 3 Fair Comments Great toe extension right 3+/5 PT-OP-N Lymphedema Start: 11/19/19 12:12 Freq: Status: Active Protocol: Document 12/26/19 16:08 SAK (Rec: 12/26/19 16:27 SAK [id number]) Lymphedema Measurements Lower Extremity Circumference Measurements right LE MT Heads 27 cm Medial Malleolus 38.4 cm 10 cm From Medial Malleolus 40.8 cm 20 cm From Medial Malleolus 49.5 cm 30 cm From Medial Malleolus 58.7 cm 40 cm From Medial Malleolus 59 cm 50 cm From Medial Malleolus 72.4 cm 60 cm From Medial Malleolus 87.9 cm 70 cm From Medial Malleolus 93.5 cm 80 cm From Medial Malleolus 100.2 cm left LE MT Heads 26.8 cm Medial Malleolus 37.3 cm 10 cm From Medial Malleolus 39.4 cm 20 cm From Medial Malleolus 50.4 cm 30 cm From Medial Malleolus 57 cm 40 cm From Medial Malleolus 58.6 cm 50 cm From Medial Malleolus 74.5 cm 60 cm From Medial Malleolus 87.5 cm 70 cm From Medial Malleolus 98.5 cm 80 cm From Medial Malleolus 105.3 cm PT-OP-Q Treatments Start: 05/07/19 12:10 Freq: Status: Active Protocol: Document 12/26/19 16:08 [facility] (Rec: 12/26/19 16:22 [facility] [id number]) Self-Care/Home Management Treatment Education Other Education Given replacement folder with lymphedema educational information and information for where to obtain compression garments locally. Lymphedema Treatment Patient Education Other Given information regarding all of the above PT-OP-R Modalities Start: 05/07/19 12:10 Freq: Status: Active Protocol: Document 12/26/19 16:08 SAK (Rec: 12/26/19 16:27 [facility] [id number]) Compression Pump Treatment Treatment Location Right Leg Pressure Amount (mmHg) (mmHG) 45 Inflation Time (Seconds) 45 Deflation Time (Seconds) 10 Treatment Duration (minutes) 30 Treatment Tolerance Good PT-OP-T Assessment and Plan Start: 05/07/19 12:10 Freq: Status: Active Protocol: Document 12/26/19 16:08 [facility] (Rec: 12/26/19 16:22 [facility] [id number]) Physical Therapy Assessment Rehab Potential Rehabilitation Potential Fair Evaluation Complexity Number of Personal Factors/Comorbidities 1-2 Number of Body Systems Impaired 3 Clinical Presentation at Evaluation Unstable Impairments Impairments Activity Tolerance,Balance, Edema,Functional Activities, Functional Mobility,Gait, Integument,Pain,Posture,ROM, Sensation,Soft Tissue Mobility ,Strength Other Impairments Pt presents with decreased sensation to light touch in his posterior LEs and feet. Goals 7 Mcfp Goal (LTG) Patient will demonstrate good understanding of self- management of his LE edema and be fit with appropriate compression garment. LTG Duration 8 wks 6 Impairment bilateral LE edema right greater than left Mcfp Goal (LTG) Decrease lymphedema to stable level (no increase or decrease greater than 1 cm over the course of 1 week). LTG Duration 8 wks 5 Mcfp Goal (LTG) Pt will gait train 600 feet with LRAD in 6 minutes to improve community distance ambulation by 01/28/2020. 11/28/2019: Pt gait trains 458 ft in 6 minutes with rolling walker LTG Duration 8 weeks 4 Impairment Inability to perform sit to stand on eval date without UE support Mcfp Goal (LTG) Pt will perform 15 reps sit to stand without UE support in 30 sec to improve functional I by 01/28/2020. 11/28/2019: LTG Duration 8 weeks 3 Mcfp Goal (LTG) Pt will perform progressive HEP with I including flexibility, strengthening, gait and balance exercises to increase functional mobility by 01/28/2020. 11/28/2019: Pt has been doing some exercises LTG Duration 8 weeks 2 Mcfp Goal (LTG) Pt will deny falls for 2 months to decrease injury risk by 01/28/2020. 11/28/2019: Pt had fall OOB when his lymphedema wraps prevented him from extending his legs. EMS had to help him get up LTG Duration 8 weeks 1 Provider Network Manager Goal (LTG) Pt will present with an improved Oswestry LBP scale score to reflect no more than 30% impairment by 01/28/2020. 11/28/2019: Pt presents with Oswestry LBP score reflecting 64% impairment LTG Duration 8 weeks Assessment Summary Assessment Decreased circumferential measurements today, patient feels PT for lymphedema helpful, tolerated LE lymphedema wrapping well. Advised he will likely need assistance to don and doff any compression garment. Continues with his HEP as well . Physical Therapy Plan Frequency and Duration Frequency of Treatment 2x/Week Duration of Treatment 8 weeks Plan of Care Start Date 11/19/19 Plan of Care End Date 01/28/20 Therapeutic Interventions Therapeutic Interventions Balance Training,Canalithic Repositioning,Gait Training, Home Exercise Program, Lymphedema Management,Manual Therapy,Neuromuscular Re- education,Patient/Caregiver Education,Self-Care/Home Management,Sensory Integration ,Soft Tissue Mobilization, Taping,Therapeutic Activities, Therapeutic Exercises Next Visit Focus/Plan Next Note Type Treatment Note Next Visit Plan Review and progress exercises Lymphedema:
--- NOTE | 2019-12-30 12:11 | PT-OP ANOTE ---
Pt called to cancel appointments this week. He reports that he was possibly exposed to COVID over 10 days ago. His doctor told him to quarantine through the full 14 days. He is going for COVID testing 01/01/2020.
--- NOTE | 2020-01-22 10:16 | PT-OP ANOTE ---
Pt states that he fell this morning, missed a step and hit the front of his head. He was cleared by the ED and will see PCP tomorrow. X-ray of the head was negative.
--- NOTE | 2020-01-29 15:42 | PT.OTN ---
Current Diagnoses Lymphedema, not elsewhere classified (01/29/20) Low back pain (01/29/20) Physical Therapy Treatment Note PT-OP-A Visit Information Start: 05/07/19 12:10 Freq: Status: Active Protocol: Document 01/29/20 09:45 [facility] (Rec: 01/29/20 10:01 [facility] [id number]) Out-Patient Physical Therapy Visit Information Visit Information Visit Type Treatment Note Visit Note Medicare Visit Start Time 09:45 Visit Stop Time 11:15 Total Visit Minutes 85 Visit Number 5/10 Precautions Precautions Falls, history of orthostasis and a-fib, lymphedema, pt on Eloquist 2x/day PT-OP-B Current Condition Start: 05/07/19 12:10 Freq: Status: Active Protocol: Document 11/21/19 15:06 [facility] (Rec: 11/21/19 15:19 [facility] [id number]) Current Condition History of Current Condition Onset Date 2 years Current Complaints swelling bilateral LE's History of Current Condition Swelling since fracture right ankle, treated with ORIF surgery and rehab. Mobility has declined, gradual worsening with weight gain. Some discoloration in LE's, swelling some improved with elevation. Doesn't wear compression garment because reports has been unable to find any large enough; has size 15 foot. Worse on right than left. Has been doing PT for mobility, strengthening, pain management. Reports pain creeping back up since not seen in physical therapy. Treatment Goals Patient/Caregiver Goals Decrease lymphedema bilateral LE's to allow improved mobility, improve health. PT-OP-C Subjective Start: 05/07/19 12:10 Freq: Status: Active Protocol: Document 01/29/20 09:45 [facility] (Rec: 01/29/20 10:01 [facility] [id number]) OP-PT Subjective Patient Comments Patient Comments Tested 2x for Covid19, negative. Has fallen 2x since last seen in PT, states got L5S1 upset, pain so high plus at times can't feel his legs. No injury besides injury to his LB. Had to call the paramedics. Fell 1x getting out of shower, slipped on lip. Fell 2nd time going down into garage on uneven stairs; no railing. Now having help to do his laundry so he doesn' t have to go into garage and has gotten a larger mat outside his shower. Feels swelling has gotten worse without being able to have PT. Has been wearing compression stockings from 5: 00pm until bedtime aroiund 11: 30 when I'm not walking because they slide. PT-OP-G Mobility & Gait Start: 05/07/19 12:10 Freq: Status: Active Protocol: Document 05/07/19 12:18 MB (Rec: 05/07/19 15:52 MB [id number]) OP Gait Assessment Comments Gait Comments Forward, flexed posture with use of his bariatric RW with tray. Decreased step-length and foot clearance and pt winces with pain after 112' gait and reports 6.5/10 LBP and so 6MWT stopped. He was able to walk this distance in 80 sec. PT-OP-M Strength Start: 05/07/19 12:10 Freq: Status: Active Protocol: Document 05/07/19 12:18 MB (Rec: 05/07/19 15:52 MB [id number]) Hip Strength Hip Manual Muscle Testing Left Flexion (L2) 2- Poor- Right Flexion (L2) 2- Poor- Comments Pt is unable to clear thigh off bench Knee Strength Knee Manual Muscle Testing Left Extension (L3) 3 Fair Comments Pt is unable to clear his foot back in sitting to assess knee flexion. Right Extension (L3) 3 Fair Comments Pt is unable to clear his foot back in sitting to assess knee flexion. Ankle/Foot Strength Ankle and Foot Manual Muscle Testing Left Dorsiflexion (L4) 4 Good Plantarflexion (S1) 4 Good Comments Great toe extension left 4/5 Right Dorsiflexion (L4) 4 Good Plantarflexion (S1) 3 Fair Comments Great toe extension right 3+/5 PT-OP-N Lymphedema Start: 11/19/19 12:12 Freq: Status: Active Protocol: Document 01/29/20 09:45 SAK (Rec: 01/29/20 10:01 SAK [id number]) Lymphedema Measurements Lower Extremity Circumference Measurements right LE MT Heads 27.3 cm Medial Malleolus 38.7 cm 10 cm From Medial Malleolus 42.7 cm 20 cm From Medial Malleolus 50.5 cm 30 cm From Medial Malleolus 60.9 cm 40 cm From Medial Malleolus 60 cm 50 cm From Medial Malleolus 73.4 cm 60 cm From Medial Malleolus 88.1 cm 70 cm From Medial Malleolus 98 cm 80 cm From Medial Malleolus 102 cm left LE MT Heads 26.6 cm Medial Malleolus 38.5 cm 10 cm From Medial Malleolus 39.6 cm 20 cm From Medial Malleolus 50.8 cm 30 cm From Medial Malleolus 60.5 cm 40 cm From Medial Malleolus 58.9 cm 50 cm From Medial Malleolus 75 cm 60 cm From Medial Malleolus 92.5 cm 70 cm From Medial Malleolus 98.5 cm 80 cm From Medial Malleolus 110.6 cm PT-OP-Q Treatments Start: 05/07/19 12:10 Freq: Status: Active Protocol: Document 01/29/20 09:45 [facility] (Rec: 01/29/20 10:01 [facility] [id number]) Lymphedema Treatment Manual Lymphatic Drainage Location trunk and left LE (pump to right LE) Duration 40 Lymphedema Wrapping Body Location bilateral LE's toes to lower thigh Materials Tricofix, Artiflex, and Comprilan, with Comprex kidney foam at malleoli. Other Skin care: lotion applied to bilateral LE's prior to wrapping Patient Education Other Patient instructed to try calling Marycarmen at [facility] regarding compression garments , and also to see if he can find compression justo-length compression tights to combine with compression stockings. Instructed to don compression stockings immediately in the morning and wear throughout the day; needs to wear when up and active especially during early part of day. Can remove for sleep. PT-OP-R Modalities Start: 05/07/19 12:10 Freq: Status: Active Protocol: Document 01/29/20 09:45 [facility] (Rec: 01/29/20 10:01 [facility] [id number]) Compression Pump Treatment Treatment Location Right Leg Pressure Amount (mmHg) (mmHG) 45 Inflation Time (Seconds) 45 Deflation Time (Seconds) 10 Treatment Duration (minutes) 30 Treatment Tolerance Good PT-OP-T Assessment and Plan Start: 05/07/19 12:10 Freq: Status: Active Protocol: Document 01/29/20 09:45 [facility]AK (Rec: 01/29/20 10:01 [facility] [id number]) Physical Therapy Assessment Rehab Potential Rehabilitation Potential Fair Evaluation Complexity Number of Personal Factors/Comorbidities 1-2 Number of Body Systems Impaired 3 Clinical Presentation at Evaluation Unstable Impairments Impairments Activity Tolerance,Balance, Edema,Functional Activities, Functional Mobility,Gait, Integument,Pain,Posture,ROM, Sensation,Soft Tissue Mobility ,Strength Other Impairments Pt presents with decreased sensation to light touch in his posterior LEs and feet. Goals 7 Dramatic Agent Goal (LTG) Patient will demonstrate good understanding of self- management of his LE edema and be fit with appropriate compression garment. 01/29/20: some goal progress, but patient not seen for 1 month due to possible Covid19 exposure as well as 2 falls. LTG Duration 03/29/20 6 Impairment bilateral LE edema right greater than left Detention Goal (LTG) Decrease lymphedema to stable level (no increase or decrease greater than 1 cm over the course of 1 week). 01/29/20: had demonstrated some progress with decrease in edema with first 2 PT treatments for lymphedema but due to missed PT as above, lymphedema has increased again . LTG Duration 03/29/20 5 Dramatic Agent Goal (LTG) Pt will gait train 600 feet with LRAD in 6 minutes to improve community distance ambulation by 01/28/2020. 11/28/2019: Pt gait trains 458 ft in 6 minutes with rolling walker 01/29/20: Patient not able to be tested today; not up to it due to a couple recent falls, as well as missed PT due to possible Covid19 exposure. LTG Duration 03/29/20 4 Impairment Inability to perform sit to stand on eval date without UE support Dramatic Agent Goal (LTG) Pt will perform 15 reps sit to stand without UE support in 30 sec to improve functional I by 01/28/2020. 11/28/2019: 01/29/20: not up to performing this test today as above LTG Duration 03/29/20 3 Detention Goal (LTG) Pt will perform progressive HEP with I including flexibility, strengthening, gait and balance exercises to increase functional mobility by 01/28/2020. 11/28/2019: Pt has been doing some exercises 01/29/20: Compliance to HEP variable, minimal over past week after falls LTG Duration 03/29/20 2 Detention Goal (LTG) Pt will deny falls for 2 months to decrease injury risk by 01/28/2020. 11/28/2019: Pt had fall OOB when his lymphedema wraps prevented him from extending his legs. EMS had to help him get up 01/29/20: 2 falls over past week requiring EMS to help him. Patient educated in safety measures. LTG Duration 03/29/20 1 Dramatic Agent Goal (LTG) Pt will present with an improved Oswestry LBP scale score to reflect no more than 30% impairment by 01/28/2020. 11/28/2019: Pt presents with Oswestry LBP score reflecting 64% impairment 01/29/20: pain has increased with recent falls, questionnaire not done today due to focus on lymphedema, will do next treatment. LTG Duration 03/29/20 Assessment Summary Assessment Measurements bilateral LE's variable but mostly increased especially proximally; feel he needs compression justo length garment to facilitate improved lymphatic flow. Was reminded of appropriate wearing of compression stockings starting in the morning. Will be contacting Marycarmen from [facility] to further discuss compression options. Physical Therapy Plan Frequency and Duration Frequency of Treatment 2x/Week Duration of Treatment 8 weeks Plan of Care Start Date 01/29/20 Plan of Care End Date 03/29/20 Therapeutic Interventions Therapeutic Interventions Balance Training,Canalithic Repositioning,Gait Training, Home Exercise Program, Lymphedema Management,Manual Therapy,Neuromuscular Re- education,Patient/Caregiver Education,Self-Care/Home Management,Sensory Integration ,Soft Tissue Mobilization, Taping,Therapeutic Activities, Therapeutic Exercises Next Visit Focus/Plan Next Note Type Treatment Note Next Visit Plan Oswestry disability index questionaire. Review and progress exercises as tolerated. Lymphedema: further discussion and education regarding compression options, continue lymphedema management with CDT .
--- NOTE | 2020-01-29 15:42 | PT.OPPOC ---
Physical, Occupational & Speech Therapy At [facility] Current Diagnoses Lymphedema, not elsewhere classified (01/29/20) Low back pain (01/29/20) Visit Care Team Role Provider Type Yolis Salazar DO Attending Provider Non-Staff Primary Care Provider Specialty: Family Practice Address: [address] [place] [address], [phone] Email: Plan Of Care PT-OP-T Assessment and Plan Start: 05/07/19 12:10 Freq: Status: Active Protocol: Document 01/29/20 09:45 [facility] (Rec: 01/29/20 10:01 [facility]AK [id number]) Physical Therapy Assessment Rehab Potential Rehabilitation Potential Fair Evaluation Complexity Number of Personal Factors/Comorbidities 1-2 Number of Body Systems Impaired 3 Clinical Presentation at Evaluation Unstable Impairments Impairments Activity Tolerance,Balance, Edema,Functional Activities, Functional Mobility,Gait, Integument,Pain,Posture,ROM, Sensation,Soft Tissue Mobility ,Strength Other Impairments Pt presents with decreased sensation to light touch in his posterior LEs and feet. Goals 7 Fdc Goal (LTG) Patient will demonstrate good understanding of self- management of his LE edema and be fit with appropriate compression garment. 01/29/20: some goal progress, but patient not seen for 1 month due to possible Covid19 exposure as well as 2 falls. LTG Duration 03/29/20 6 Impairment bilateral LE edema right greater than left Direct Support Staff Goal (LTG) Decrease lymphedema to stable level (no increase or decrease greater than 1 cm over the course of 1 week). 01/29/20: had demonstrated some progress with decrease in edema with first 2 PT treatments for lymphedema but due to missed PT as above, lymphedema has increased again . LTG Duration 03/29/20 5 Direct Support Staff Goal (LTG) Pt will gait train 600 feet with LRAD in 6 minutes to improve community distance ambulation by 01/28/2020. 11/28/2019: Pt gait trains 458 ft in 6 minutes with rolling walker 01/29/20: Patient not able to be tested today; not up to it due to a couple recent falls, as well as missed PT due to possible Covid19 exposure. LTG Duration 03/29/20 4 Impairment Inability to perform sit to stand on eval date without UE support Fdc Goal (LTG) Pt will perform 15 reps sit to stand without UE support in 30 sec to improve functional I by 01/28/2020. 11/28/2019: 01/29/20: not up to performing this test today as above LTG Duration 03/29/20 3 Fdc Goal (LTG) Pt will perform progressive HEP with I including flexibility, strengthening, gait and balance exercises to increase functional mobility by 01/28/2020. 11/28/2019: Pt has been doing some exercises 01/29/20: Compliance to HEP variable, minimal over past week after falls LTG Duration 03/29/20 2 Fdc Goal (LTG) Pt will deny falls for 2 months to decrease injury risk by 01/28/2020. 11/28/2019: Pt had fall OOB when his lymphedema wraps prevented him from extending his legs. EMS had to help him get up 01/29/20: 2 falls over past week requiring EMS to help him. Patient educated in safety measures. LTG Duration 03/29/20 1 Direct Support Staff Goal (LTG) Pt will present with an improved Oswestry LBP scale score to reflect no more than 30% impairment by 01/28/2020. 11/28/2019: Pt presents with Oswestry LBP score reflecting 64% impairment 01/29/20: pain has increased with recent falls, questionnaire not done today due to focus on lymphedema, will do next treatment. LTG Duration 03/29/20 Assessment Summary Assessment Measurements bilateral LE's variable but mostly increased especially proximally; feel he needs compression justo length garment to facilitate improved lymphatic flow. Was reminded of appropriate wearing of compression stockings starting in the morning. Will be contacting Marycarmen sanchez [facility] to further discuss compression options. Physical Therapy Plan Frequency and Duration Frequency of Treatment 2x/Week Duration of Treatment 8 weeks Plan of Care Start Date 01/29/20 Plan of Care End Date 03/29/20 Therapeutic Interventions Therapeutic Interventions Balance Training,Canalithic Repositioning,Gait Training, Home Exercise Program, Lymphedema Management,Manual Therapy,Neuromuscular Re- education,Patient/Caregiver Education,Self-Care/Home Management,Sensory Integration ,Soft Tissue Mobilization, Taping,Therapeutic Activities, Therapeutic Exercises Next Visit Focus/Plan Next Note Type Treatment Note Next Visit Plan Oswestry disability index questionaire. Review and progress exercises as tolerated. Lymphedema: further discussion and education regarding compression options, continue lymphedema management with CDT . Plan of Care Dates Plan of Care Start Date 01/29/20 Plan of Care End Date 03/29/20 Electronically Signed by: Blanche Sanches, PT 01/29/20 [id number] Please Sign and Return: I have reviewed this Plan of Care and certify that the skilled therapy services above are required to meet the patient?s needs. Physician Signature Date Printed Name and Credentials Clinical Instructor Signature Printed Name and Credentials
--- NOTE | 2020-02-05 16:32 | PT.OTN ---
Current Diagnoses Lymphedema, not elsewhere classified (02/05/20) Low back pain (02/05/20) Physical Therapy Treatment Note PT-OP-A Visit Information Start: 05/07/19 12:10 Freq: Status: Active Protocol: Document 02/05/20 16:15 [facility] (Rec: 02/05/20 16:31 [facility] [id number]) Out-Patient Physical Therapy Visit Information Visit Information Visit Type Treatment Note Visit Start Time 14:32 Visit Stop Time 16:01 Total Visit Minutes 89 Visit Number 12/03 Precautions Precautions Falls, history of orthostasis and a-fib, lymphedema, pt on Eloquist 2x/day PT-OP-B Current Condition Start: 05/07/19 12:10 Freq: Status: Active Protocol: Document 11/21/19 15:06 [facility] (Rec: 11/21/19 15:19 [facility] [id number]) Current Condition History of Current Condition Onset Date 2 years Current Complaints swelling bilateral LE's History of Current Condition Swelling since fracture right ankle, treated with ORIF surgery and rehab. Mobility has declined, gradual worsening with weight gain. Some discoloration in LE's, swelling some improved with elevation. Doesn't wear compression garment because reports has been unable to find any large enough; has size 15 foot. Worse on right than left. Has been doing PT for mobility, strengthening, pain management. Reports pain creeping back up since not seen in physical therapy. Treatment Goals Patient/Caregiver Goals Decrease lymphedema bilateral LE's to allow improved mobility, improve health. PT-OP-C Subjective Start: 05/07/19 12:10 Freq: Status: Active Protocol: Document 02/05/20 16:15 [facility] (Rec: 02/05/20 16:31 [facility] [id number]) OP-PT Subjective Patient Comments Patient Comments Reports he fell 2x since last seen requiring EMS to help him up. Fell 01/29 due to low blood sugar and low blood pressure, and on 02/01/20 due to low blood pressure and low blood sugar. Denies specific injury but reports he hurts all over. Refuses Sci-Fit exercise as doesn't feel up to it. Sees his physician . Has been trying to wear somewhat compression socks. [facility] [place] [facility] or garments PT-OP-G Mobility & Gait Start: 05/07/19 12:10 Freq: Status: Active Protocol: Document 05/07/19 12:18 MB (Rec: 05/07/19 15:52 MB [id number]) OP Gait Assessment Comments Gait Comments Forward, flexed posture with use of his bariatric RW with tray. Decreased step-length and foot clearance and pt winces with pain after 112' gait and reports 6.5/10 LBP and so 6MWT stopped. He was able to walk this distance in 80 sec. PT-OP-M Strength Start: 05/07/19 12:10 Freq: Status: Active Protocol: Document 05/07/19 12:18 MB (Rec: 05/07/19 15:52 MB [id number]) Hip Strength Hip Manual Muscle Testing Left Flexion (L2) 2- Poor- Right Flexion (L2) 2- Poor- Comments Pt is unable to clear thigh off bench Knee Strength Knee Manual Muscle Testing Left Extension (L3) 3 Fair Comments Pt is unable to clear his foot back in sitting to assess knee flexion. Right Extension (L3) 3 Fair Comments Pt is unable to clear his foot back in sitting to assess knee flexion. Ankle/Foot Strength Ankle and Foot Manual Muscle Testing Left Dorsiflexion (L4) 4 Good Plantarflexion (S1) 4 Good Comments Great toe extension left 4/5 Right Dorsiflexion (L4) 4 Good Plantarflexion (S1) 3 Fair Comments Great toe extension right 3+/5 PT-OP-N Lymphedema Start: 11/19/19 12:12 Freq: Status: Active Protocol: Document 02/05/20 16:15 [facility] (Rec: 02/05/20 16:31 [facility] [id number]) Lymphedema Measurements Lower Extremity Circumference Measurements right LE MT Heads 26.5 cm Medial Malleolus 38.3 cm 10 cm From Medial Malleolus 40.2 cm 20 cm From Medial Malleolus 49.5 cm 30 cm From Medial Malleolus 57.7 cm 40 cm From Medial Malleolus 64.6 cm 50 cm From Medial Malleolus 69.5 cm 60 cm From Medial Malleolus 85.5 cm 70 cm From Medial Malleolus 94.8 cm 80 cm From Medial Malleolus 103.9 cm left LE MT Heads 26.8 cm Medial Malleolus 38.1 cm 10 cm From Medial Malleolus 39.6 cm 20 cm From Medial Malleolus 48.9 cm 30 cm From Medial Malleolus 59.3 cm 40 cm From Medial Malleolus 60.4 cm 50 cm From Medial Malleolus 70 cm 60 cm From Medial Malleolus 85.5 cm 70 cm From Medial Malleolus 91.4 cm 80 cm From Medial Malleolus 105.9 cm PT-OP-Q Treatments Start: 05/07/19 12:10 Freq: Status: Active Protocol: Document 02/05/20 16:15 [facility] (Rec: 02/05/20 16:31 [facility] [id number]) Lymphedema Treatment Manual Lymphatic Drainage Location trunk and left LE (pump to right LE) Duration 40 Lymphedema Wrapping Body Location bilateral LE's toes to knee Materials Tricofix, Artiflex, and Comprilan, with Comprex kidney foam at malleoli. Other Skin care: lotion applied to bilateral LE's prior to wrapping Sequential Lymphedema Exercises Location bilateral LE's Duration 5x Patient Education Self Manual Lymphatic Drainage patient unable Other Patient has left messages, but also reminded to look for the justo-length compression in 7XL PT-OP-R Modalities Start: 05/07/19 12:10 Freq: Status: Active Protocol: Document 02/05/20 16:15 [facility] (Rec: 02/05/20 16:31 [facility] [id number]) Compression Pump Treatment Treatment Location Right Leg Pressure Amount (mmHg) (mmHG) 45 Inflation Time (Seconds) 45 Deflation Time (Seconds) 10 Treatment Duration (minutes) 30 Treatment Tolerance Good PT-OP-T Assessment and Plan Start: 05/07/19 12:10 Freq: Status: Active Protocol: Document 02/05/20 16:15 [facility] (Rec: 02/05/20 16:31 [facility] [id number]) Physical Therapy Assessment Impairments Impairments Activity Tolerance,Balance, Edema,Functional Activities, Functional Mobility,Gait, Integument,Pain,Posture,ROM, Sensation,Soft Tissue Mobility ,Strength Other Impairments Pt presents with decreased sensation to light touch in his posterior LEs and feet. Goals 7 Residential Goal (LTG) Patient will demonstrate good understanding of self- management of his LE edema and be fit with appropriate compression garment. 01/29/20: some goal progress, but patient not seen for 1 month due to possible Covid19 exposure as well as 2 falls. LTG Duration 03/29/20 6 Impairment bilateral LE edema right greater than left Residential Goal (LTG) Decrease lymphedema to stable level (no increase or decrease greater than 1 cm over the course of 1 week). 01/29/20: had demonstrated some progress with decrease in edema with first 2 PT treatments for lymphedema but due to missed PT as above, lymphedema has increased again . LTG Duration 03/29/20 5 Beet Topper Goal (LTG) Pt will gait train 600 feet with LRAD in 6 minutes to improve community distance ambulation by 01/28/2020. 11/28/2019: Pt gait trains 458 ft in 6 minutes with rolling walker 01/29/20: Patient not able to be tested today; not up to it due to a couple recent falls, as well as missed PT due to possible Covid19 exposure. LTG Duration 03/29/20 4 Impairment Inability to perform sit to stand on eval date without UE support Residential Goal (LTG) Pt will perform 15 reps sit to stand without UE support in 30 sec to improve functional I by 01/28/2020. 11/28/2019: 01/29/20: not up to performing this test today as above LTG Duration 03/29/20 3 Residential Goal (LTG) Pt will perform progressive HEP with I including flexibility, strengthening, gait and balance exercises to increase functional mobility by 01/28/2020. 11/28/2019: Pt has been doing some exercises 01/29/20: Compliance to HEP variable, minimal over past week after falls LTG Duration 03/29/20 2 Residential Goal (LTG) Pt will deny falls for 2 months to decrease injury risk by 01/28/2020. 11/28/2019: Pt had fall OOB when his lymphedema wraps prevented him from extending his legs. EMS had to help him get up 01/29/20: 2 falls over past week requiring EMS to help him. Patient educated in safety measures. LTG Duration 03/29/20 1 Beet Topper Goal (LTG) Pt will present with an improved Oswestry LBP scale score to reflect no more than 30% impairment by 01/28/2020. 11/28/2019: Pt presents with Oswestry LBP score reflecting 64% impairment 01/29/20: pain has increased with recent falls, questionnaire not done today due to focus on lymphedema, will do next treatment. LTG Duration 03/29/20 Assessment Summary Assessment Most of patient's LE measurements show a decrease in circumference despite limited mobility s/p 2 further falls. Patient expressing that he doesn't want to go to a care facility but may be discussing that possibility with his physician next week. Noting LBP with all mobility today and increased need to rest walking from waiting room to treatment room today. Low tolerance for activity. Physical Therapy Plan Frequency and Duration Frequency of Treatment 2x/Week Duration of Treatment 8 weeks Plan of Care Start Date 01/29/20 Plan of Care End Date 03/29/20 Therapeutic Interventions Therapeutic Interventions Balance Training,Canalithic Repositioning,Gait Training, Home Exercise Program, Lymphedema Management,Manual Therapy,Neuromuscular Re- education,Patient/Caregiver Education,Self-Care/Home Management,Sensory Integration ,Soft Tissue Mobilization, Taping,Therapeutic Activities, Therapeutic Exercises Next Visit Focus/Plan Next Note Type Treatment Note Next Visit Plan Continue to progress ther ex as tolerated and continue lymphedema management.
--- NOTE | 2020-02-14 13:47 | PT.OTN ---
Current Diagnoses Lymphedema, not elsewhere classified (02/14/20) Low back pain (02/14/20) Physical Therapy Treatment Note PT-OP-A Visit Information Start: 05/07/19 12:10 Freq: Status: Active Protocol: Document 02/14/20 13:02 MB (Rec: 02/14/20 13:38 MB [id number]) Out-Patient Physical Therapy Visit Information Visit Information Visit Type Treatment Note Visit Start Time 13:02 Visit Stop Time 13:42 Total Visit Minutes 40 Visit Number 7 Precautions Precautions Falls, history of orthostasis and a-fib, lymphedema, pt on Eloquist 2x/day PT-OP-B Current Condition Start: 05/07/19 12:10 Freq: Status: Active Protocol: Document 11/21/19 15:06 [facility] (Rec: 11/21/19 15:19 [facility]AK [id number]) Current Condition History of Current Condition Onset Date 2 years Current Complaints swelling bilateral LE's History of Current Condition Swelling since fracture right ankle, treated with ORIF surgery and rehab. Mobility has declined, gradual worsening with weight gain. Some discoloration in LE's, swelling some improved with elevation. Doesn't wear compression garment because reports has been unable to find any large enough; has size 15 foot. Worse on right than left. Has been doing PT for mobility, strengthening, pain management. Reports pain creeping back up since not seen in physical therapy. Treatment Goals Patient/Caregiver Goals Decrease lymphedema bilateral LE's to allow improved mobility, improve health. PT-OP-C Subjective Start: 05/07/19 12:10 Freq: Status: Active Protocol: Document 02/14/20 13:02 MB (Rec: 02/14/20 13:38 MB [id number]) OP-PT Subjective Patient Comments Patient Comments Pt has not had falls since last week. PT-OP-G Mobility & Gait Start: 05/07/19 12:10 Freq: Status: Active Protocol: Document 05/07/19 12:18 MB (Rec: 05/07/19 15:52 MB [id number]) OP Gait Assessment Comments Gait Comments Forward, flexed posture with use of his bariatric RW with tray. Decreased step-length and foot clearance and pt winces with pain after 112' gait and reports 6.5/10 LBP and so 6MWT stopped. He was able to walk this distance in 80 sec. PT-OP-M Strength Start: 05/07/19 12:10 Freq: Status: Active Protocol: Document 05/07/19 12:18 MB (Rec: 05/07/19 15:52 MB [id number]) Hip Strength Hip Manual Muscle Testing Left Flexion (L2) 2- Poor- Right Flexion (L2) 2- Poor- Comments Pt is unable to clear thigh off bench Knee Strength Knee Manual Muscle Testing Left Extension (L3) 3 Fair Comments Pt is unable to clear his foot back in sitting to assess knee flexion. Right Extension (L3) 3 Fair Comments Pt is unable to clear his foot back in sitting to assess knee flexion. Ankle/Foot Strength Ankle and Foot Manual Muscle Testing Left Dorsiflexion (L4) 4 Good Plantarflexion (S1) 4 Good Comments Great toe extension left 4/5 Right Dorsiflexion (L4) 4 Good Plantarflexion (S1) 3 Fair Comments Great toe extension right 3+/5 PT-OP-N Lymphedema Start: 11/19/19 12:12 Freq: Status: Active Protocol: Document 02/05/20 16:15 [facility] (Rec: 02/05/20 16:31 [facility] [id number]) Lymphedema Measurements Lower Extremity Circumference Measurements right LE MT Heads 26.5 cm Medial Malleolus 38.3 cm 10 cm From Medial Malleolus 40.2 cm 20 cm From Medial Malleolus 49.5 cm 30 cm From Medial Malleolus 57.7 cm 40 cm From Medial Malleolus 64.6 cm 50 cm From Medial Malleolus 69.5 cm 60 cm From Medial Malleolus 85.5 cm 70 cm From Medial Malleolus 94.8 cm 80 cm From Medial Malleolus 103.9 cm left LE MT Heads 26.8 cm Medial Malleolus 38.1 cm 10 cm From Medial Malleolus 39.6 cm 20 cm From Medial Malleolus 48.9 cm 30 cm From Medial Malleolus 59.3 cm 40 cm From Medial Malleolus 60.4 cm 50 cm From Medial Malleolus 70 cm 60 cm From Medial Malleolus 85.5 cm 70 cm From Medial Malleolus 91.4 cm 80 cm From Medial Malleolus 105.9 cm PT-OP-Q Treatments Start: 05/07/19 12:10 Freq: Status: Active Protocol: Document 02/14/20 13:02 MB (Rec: 02/14/20 13:38 MB [id number]) Therapeutic Exercises Sitting Exercises Sit to stands without UE support Comments 11 in 30 sec; 5/10 back pain Other Exercises Verbally reviewed HEP Comments Pt is performing ankle, leg raises, GS and sit to stands at home Gait Training Gait Activity // bar gait activities Comments Pt gait trains with superv 6 reps without UE support, then rest Superv forward and backward gait without UE support, 3 reps and then rest. Pt reports dizziness (known history of orthostasis) Side stepping right and left: 3 reps each 4 hurdles forward and backward : pt cannot look down and backwards and so stopped backwards. UE support on // bars. Pt reports 7-8/10 pain after backwards stepping PT-OP-R Modalities Start: 05/07/19 12:10 Freq: Status: Active Protocol: Document 02/05/20 16:15 [facility] (Rec: 02/05/20 16:31 [facility] [id number]) Compression Pump Treatment Treatment Location Right Leg Pressure Amount (mmHg) (mmHG) 45 Inflation Time (Seconds) 45 Deflation Time (Seconds) 10 Treatment Duration (minutes) 30 Treatment Tolerance Good PT-OP-T Assessment and Plan Start: 05/07/19 12:10 Freq: Status: Active Protocol: Document 02/14/20 13:02 MB (Rec: 02/14/20 13:38 MB [id number]) Physical Therapy Assessment Rehab Potential Rehabilitation Potential Fair Evaluation Complexity Number of Personal Factors/Comorbidities 1-2 Number of Body Systems Impaired 3 Clinical Presentation at Evaluation Unstable Impairments Impairments Activity Tolerance,Balance, Edema,Functional Activities, Functional Mobility,Gait, Integument,Pain,Posture,ROM, Sensation,Soft Tissue Mobility ,Strength Other Impairments Pt presents with decreased sensation to light touch in his posterior LEs and feet. Goals 7 Director Of Counterintelligence Goal (LTG) Patient will demonstrate good understanding of self- management of his LE edema and be fit with appropriate compression garment. 01/29/20: some goal progress, but patient not seen for 1 month due to possible Covid19 exposure as well as 2 falls. LTG Duration 03/29/20 6 Impairment bilateral LE edema right greater than left Director Of Counterintelligence Goal (LTG) Decrease lymphedema to stable level (no increase or decrease greater than 1 cm over the course of 1 week). 01/29/20: had demonstrated some progress with decrease in edema with first 2 PT treatments for lymphedema but due to missed PT as above, lymphedema has increased again . LTG Duration 03/29/20 5 Director Of Counterintelligence Goal (LTG) Pt will gait train 600 feet with LRAD in 6 minutes to improve community distance ambulation by 03/29/2020. 11/28/2019: Pt gait trains 458 ft in 6 minutes with rolling walker 01/29/20: Patient not able to be tested today; not up to it due to a couple recent falls, as well as missed PT due to possible Covid19 exposure. LTG Duration 03/29/20 4 Impairment Inability to perform sit to stand on eval date without UE support Director Of Counterintelligence Goal (LTG) Pt will perform 15 reps sit to stand without UE support in 30 sec to improve functional I by 03/29/2020. 01/29/20: not up to performing this test today as above LTG Duration 03/29/20 3 Care Home Goal (LTG) Pt will perform progressive HEP with I including flexibility, strengthening, gait and balance exercises to increase functional mobility by 03/29/2020. 11/28/2019: Pt has been doing some exercises 01/29/20: Compliance to HEP variable, minimal over past week after falls LTG Duration 03/29/20 2 Care Home Goal (LTG) Pt will deny falls for 2 months to decrease injury risk by 03/29/2020. 11/28/2019: Pt had fall OOB when his lymphedema wraps prevented him from extending his legs. EMS had to help him get up 01/29/20: 2 falls over past week requiring EMS to help him. Patient educated in safety measures. LTG Duration 03/29/20 1 Director Of Counterintelligence Goal (LTG) Pt will present with an improved Oswestry LBP scale score to reflect no more than 30% impairment by 03/29/2020. 11/28/2019: Pt presents with Oswestry LBP score reflecting 64% impairment 01/29/20: pain has increased with recent falls, questionnaire not done today due to focus on lymphedema, will do next treatment. LTG Duration 03/29/20 Assessment Summary Assessment First treatment for functional PT in about a month. Pt's back pain is better controlled and he does well with sit to stands today. Progressed to gait trials in the // bars. Many rest breaks between trials. Physical Therapy Plan Frequency and Duration Frequency of Treatment 2x/Week Duration of Treatment 8 weeks Plan of Care Start Date 01/29/20 Plan of Care End Date 03/29/20 Therapeutic Interventions Therapeutic Interventions Balance Training,Canalithic Repositioning,Gait Training, Home Exercise Program, Lymphedema Management,Manual Therapy,Neuromuscular Re- education,Patient/Caregiver Education,Self-Care/Home Management,Sensory Integration ,Soft Tissue Mobilization, Taping,Therapeutic Activities, Therapeutic Exercises Next Visit Focus/Plan Next Note Type Treatment Note Next Visit Plan Continue to progress ther ex as tolerated and continue lymphedema management.
--- NOTE | 2020-02-21 13:41 | PT.OTN ---
Current Diagnoses Lymphedema, not elsewhere classified (02/21/20) Low back pain (02/21/20) Physical Therapy Treatment Note PT-OP-A Visit Information Start: 05/07/19 12:10 Freq: Status: Active Protocol: Document 02/21/20 13:00 MB (Rec: 02/21/20 13:41 MB [id number]) Out-Patient Physical Therapy Visit Information Visit Information Visit Type Treatment Note Visit Start Time 13:00 Visit Stop Time 13:38 Total Visit Minutes 38 Visit Number 8/10 Precautions Precautions Falls, history of orthostasis and a-fib, lymphedema, pt on Eloquist 2x/day PT-OP-B Current Condition Start: 05/07/19 12:10 Freq: Status: Active Protocol: Document 11/21/19 15:06 SAK (Rec: 11/21/19 15:19 SAK [id number]) Current Condition History of Current Condition Onset Date 2 years Current Complaints swelling bilateral LE's History of Current Condition Swelling since fracture right ankle, treated with ORIF surgery and rehab. Mobility has declined, gradual worsening with weight gain. Some discoloration in LE's, swelling some improved with elevation. Doesn't wear compression garment because reports has been unable to find any large enough; has size 15 foot. Worse on right than left. Has been doing PT for mobility, strengthening, pain management. Reports pain creeping back up since not seen in physical therapy. Treatment Goals Patient/Caregiver Goals Decrease lymphedema bilateral LE's to allow improved mobility, improve health. PT-OP-C Subjective Start: 05/07/19 12:10 Freq: Status: Active Protocol: Document 02/21/20 13:00 MB (Rec: 02/21/20 13:41 MB [id number]) OP-PT Subjective Patient Comments Patient Comments Pt just came from the lab where he had blood work taken to check liver enzymes. He will have a CT scan of colon after PT. He has 6.5/10 pain in his left colon area and 4-5 /10 LBP today. He denies falls . He last ate cream of wheat this morning at 0730. PT-OP-G Mobility & Gait Start: 05/07/19 12:10 Freq: Status: Active Protocol: Document 05/07/19 12:18 MB (Rec: 05/07/19 15:52 MB [id number]) OP Gait Assessment Comments Gait Comments Forward, flexed posture with use of his bariatric RW with tray. Decreased step-length and foot clearance and pt winces with pain after 112' gait and reports 6.5/10 LBP and so 6MWT stopped. He was able to walk this distance in 80 sec. PT-OP-M Strength Start: 05/07/19 12:10 Freq: Status: Active Protocol: Document 05/07/19 12:18 MB (Rec: 05/07/19 15:52 MB [id number]) Hip Strength Hip Manual Muscle Testing Left Flexion (L2) 2- Poor- Right Flexion (L2) 2- Poor- Comments Pt is unable to clear thigh off bench Knee Strength Knee Manual Muscle Testing Left Extension (L3) 3 Fair Comments Pt is unable to clear his foot back in sitting to assess knee flexion. Right Extension (L3) 3 Fair Comments Pt is unable to clear his foot back in sitting to assess knee flexion. Ankle/Foot Strength Ankle and Foot Manual Muscle Testing Left Dorsiflexion (L4) 4 Good Plantarflexion (S1) 4 Good Comments Great toe extension left 4/5 Right Dorsiflexion (L4) 4 Good Plantarflexion (S1) 3 Fair Comments Great toe extension right 3+/5 PT-OP-N Lymphedema Start: 11/19/19 12:12 Freq: Status: Active Protocol: Document 02/05/20 16:15 [facility] (Rec: 02/05/20 16:31 [facility] [id number]) Lymphedema Measurements Lower Extremity Circumference Measurements right LE MT Heads 26.5 cm Medial Malleolus 38.3 cm 10 cm From Medial Malleolus 40.2 cm 20 cm From Medial Malleolus 49.5 cm 30 cm From Medial Malleolus 57.7 cm 40 cm From Medial Malleolus 64.6 cm 50 cm From Medial Malleolus 69.5 cm 60 cm From Medial Malleolus 85.5 cm 70 cm From Medial Malleolus 94.8 cm 80 cm From Medial Malleolus 103.9 cm left LE MT Heads 26.8 cm Medial Malleolus 38.1 cm 10 cm From Medial Malleolus 39.6 cm 20 cm From Medial Malleolus 48.9 cm 30 cm From Medial Malleolus 59.3 cm 40 cm From Medial Malleolus 60.4 cm 50 cm From Medial Malleolus 70 cm 60 cm From Medial Malleolus 85.5 cm 70 cm From Medial Malleolus 91.4 cm 80 cm From Medial Malleolus 105.9 cm PT-OP-Q Treatments Start: 05/07/19 12:10 Freq: Status: Active Protocol: Document 02/21/20 13:00 MB (Rec: 02/21/20 13:41 MB [id number]) Therapeutic Exercises Sitting Exercises Ball tosses sitting Comments 20 reps and then rest; 20 more rests; overhead 5 then 20 reps Pursed lip breathing Comments 5 reps when having rest breaks with exercises Shoulder abduction Comments 10 reps slowly Shoulder flexion Comments Alternating B arms x10 LAQs with APs Comments 2 reps with 10 count AP Scapular retraction Comments Shoulder rolls with scapular retraction x10 Cervical rotation and nods sitting upright Comments B x2 with 10 nods each rotation Thoracic rotation with hands across to elbows Comments 5 reps B to improve thoracic mobility PT-OP-R Modalities Start: 05/07/19 12:10 Freq: Status: Active Protocol: Document 02/05/20 16:15 SAK (Rec: 02/05/20 16:31 SAK [id number]) Compression Pump Treatment Treatment Location Right Leg Pressure Amount (mmHg) (mmHG) 45 Inflation Time (Seconds) 45 Deflation Time (Seconds) 10 Treatment Duration (minutes) 30 Treatment Tolerance Good PT-OP-T Assessment and Plan Start: 05/07/19 12:10 Freq: Status: Active Protocol: Document 02/21/20 13:00 MB (Rec: 02/21/20 13:41 [id number]) Physical Therapy Assessment Rehab Potential Rehabilitation Potential Fair Evaluation Complexity Number of Personal Factors/Comorbidities 1-2 Number of Body Systems Impaired 3 Clinical Presentation at Evaluation Unstable Impairments Impairments Activity Tolerance,Balance, Edema,Functional Activities, Functional Mobility,Gait, Integument,Pain,Posture,ROM, Sensation,Soft Tissue Mobility ,Strength Other Impairments Pt presents with decreased sensation to light touch in his posterior LEs and feet. Goals 7 Ocular Pathologist Goal (LTG) Patient will demonstrate good understanding of self- management of his LE edema and be fit with appropriate compression garment. 01/29/20: some goal progress, but patient not seen for 1 month due to possible Covid19 exposure as well as 2 falls. LTG Duration 03/29/20 6 Impairment bilateral LE edema right greater than left Ocular Pathologist Goal (LTG) Decrease lymphedema to stable level (no increase or decrease greater than 1 cm over the course of 1 week). 01/29/20: had demonstrated some progress with decrease in edema with first 2 PT treatments for lymphedema but due to missed PT as above, lymphedema has increased again . LTG Duration 03/29/20 5 Ocular Pathologist Goal (LTG) Pt will gait train 600 feet with LRAD in 6 minutes to improve community distance ambulation by 03/29/2020. 11/28/2019: Pt gait trains 458 ft in 6 minutes with rolling walker 01/29/20: Patient not able to be tested today; not up to it due to a couple recent falls, as well as missed PT due to possible Covid19 exposure. LTG Duration 03/29/20 4 Impairment Inability to perform sit to stand on eval date without UE support Usp Goal (LTG) Pt will perform 15 reps sit to stand without UE support in 30 sec to improve functional I by 03/29/2020. 01/29/20: not up to performing this test today as above LTG Duration 03/29/20 3 Usp Goal (LTG) Pt will perform progressive HEP with I including flexibility, strengthening, gait and balance exercises to increase functional mobility by 03/29/2020. 11/28/2019: Pt has been doing some exercises 01/29/20: Compliance to HEP variable, minimal over past week after falls LTG Duration 03/29/20 2 Usp Goal (LTG) Pt will deny falls for 2 months to decrease injury risk by 03/29/2020. 11/28/2019: Pt had fall OOB when his lymphedema wraps prevented him from extending his legs. EMS had to help him get up 01/29/20: 2 falls over past week requiring EMS to help him. Patient educated in safety measures. LTG Duration 03/29/20 1 Ocular Pathologist Goal (LTG) Pt will present with an improved Oswestry LBP scale score to reflect no more than 30% impairment by 03/29/2020. 11/28/2019: Pt presents with Oswestry LBP score reflecting 64% impairment 01/29/20: pain has increased with recent falls, questionnaire not done today due to focus on lymphedema, will do next treatment. LTG Duration 03/29/20 Assessment Summary Assessment Sitting exercises today d/t pt with abdominal discomfort and awaiting testing. Con't to progress exercises as pt tolerates. Gait training 75'x2 with RW today. Physical Therapy Plan Frequency and Duration Frequency of Treatment 2x/Week Duration of Treatment 8 weeks Plan of Care Start Date 01/29/20 Plan of Care End Date 03/29/20 Therapeutic Interventions Therapeutic Interventions Balance Training,Canalithic Repositioning,Gait Training, Home Exercise Program, Lymphedema Management,Manual Therapy,Neuromuscular Re- education,Patient/Caregiver Education,Self-Care/Home Management,Sensory Integration ,Soft Tissue Mobilization, Taping,Therapeutic Activities, Therapeutic Exercises Next Visit Focus/Plan Next Note Type Treatment Note Next Visit Plan Continue to progress ther ex as tolerated and continue lymphedema management.
--- NOTE | 2020-02-26 16:21 | PT.OTN ---
Current Diagnoses Lymphedema, not elsewhere classified (02/26/20) Low back pain (02/26/20) Physical Therapy Treatment Note PT-OP-A Visit Information Start: 05/07/19 12:10 Freq: Status: Active Protocol: Document 02/26/20 14:45 [facility] (Rec: 02/26/20 14:50 [facility] [id number]) Out-Patient Physical Therapy Visit Information Visit Information Visit Type Treatment Note Visit Start Time 14:30 Visit Stop Time 15:54 Total Visit Minutes 84 Visit Number 9/ Precautions Precautions Falls, history of orthostasis and a-fib, lymphedema, pt on Eloquist 2x/day PT-OP-B Current Condition Start: 05/07/19 12:10 Freq: Status: Active Protocol: Document 11/21/19 15:06 SAK (Rec: 11/21/19 15:19 SAK [id number]) Current Condition History of Current Condition Onset Date 2 years Current Complaints swelling bilateral LE's History of Current Condition Swelling since fracture right ankle, treated with ORIF surgery and rehab. Mobility has declined, gradual worsening with weight gain. Some discoloration in LE's, swelling some improved with elevation. Doesn't wear compression garment because reports has been unable to find any large enough; has size 15 foot. Worse on right than left. Has been doing PT for mobility, strengthening, pain management. Reports pain creeping back up since not seen in physical therapy. Treatment Goals Patient/Caregiver Goals Decrease lymphedema bilateral LE's to allow improved mobility, improve health. PT-OP-C Subjective Start: 05/07/19 12:10 Freq: Status: Active Protocol: Document 02/26/20 14:45 [facility] (Rec: 02/26/20 14:50 [facility] [id number]) OP-PT Subjective Patient Comments Patient Comments Has been struggling with diverticulitis for almost a week, initially put on liquid diet, now on modified diet. Unable to take the usual antibiotics due to drug interactions with his current medications. Fell 02/22/20 back across bed (not to floor) due to feeling weak/numb on his way back from the bathroom in the middle of the night. PT-OP-G Mobility & Gait Start: 05/07/19 12:10 Freq: Status: Active Protocol: Document 05/07/19 12:18 MB (Rec: 05/07/19 15:52 MB [id number]) OP Gait Assessment Comments Gait Comments Forward, flexed posture with use of his bariatric RW with tray. Decreased step-length and foot clearance and pt winces with pain after 112' gait and reports 6.5/10 LBP and so 6MWT stopped. He was able to walk this distance in 80 sec. PT-OP-M Strength Start: 05/07/19 12:10 Freq: Status: Active Protocol: Document 05/07/19 12:18 MB (Rec: 05/07/19 15:52 MB [id number]) Hip Strength Hip Manual Muscle Testing Left Flexion (L2) 2- Poor- Right Flexion (L2) 2- Poor- Comments Pt is unable to clear thigh off bench Knee Strength Knee Manual Muscle Testing Left Extension (L3) 3 Fair Comments Pt is unable to clear his foot back in sitting to assess knee flexion. Right Extension (L3) 3 Fair Comments Pt is unable to clear his foot back in sitting to assess knee flexion. Ankle/Foot Strength Ankle and Foot Manual Muscle Testing Left Dorsiflexion (L4) 4 Good Plantarflexion (S1) 4 Good Comments Great toe extension left 4/5 Right Dorsiflexion (L4) 4 Good Plantarflexion (S1) 3 Fair Comments Great toe extension right 3+/5 PT-OP-N Lymphedema Start: 11/19/19 12:12 Freq: Status: Active Protocol: Document 02/26/20 14:45 SAK (Rec: 02/26/20 16:18 SAK [id number]) Lymphedema Measurements Lower Extremity Circumference Measurements right LE MT Heads 26 cm Medial Malleolus 38.6 cm 10 cm From Medial Malleolus 40.8 cm 20 cm From Medial Malleolus 47.5 cm 30 cm From Medial Malleolus 57.4 cm 40 cm From Medial Malleolus 63.8 cm 50 cm From Medial Malleolus 63.4 cm 60 cm From Medial Malleolus 79.9 cm 70 cm From Medial Malleolus 93.5 cm 80 cm From Medial Malleolus 104 cm left LE MT Heads 26.2 cm Medial Malleolus 38.9 cm 10 cm From Medial Malleolus 42.4 cm 20 cm From Medial Malleolus 51.7 cm 30 cm From Medial Malleolus 57.7 cm 40 cm From Medial Malleolus 57.3 cm 50 cm From Medial Malleolus 72.9 cm 60 cm From Medial Malleolus 90.3 cm 70 cm From Medial Malleolus 95.1 cm 80 cm From Medial Malleolus 104.2 cm PT-OP-Q Treatments Start: 05/07/19 12:10 Freq: Status: Active Protocol: Document 02/26/20 14:45 [facility] (Rec: 02/26/20 16:21 SAK [id number]) Lymphedema Treatment Manual Lymphatic Drainage Location trunk and daisy LE's Duration 60 Lymphedema Wrapping Other Patient refused due to fear of mobility limitations with wrapping causing safety issues Sequential Lymphedema Exercises Location bilateral LE's Duration 10x ea Patient Education Compression Garments Patient has talked with staff at [facility] who will be getting back to him Other Lymphedema not as effective without compression PT-OP-R Modalities Start: 05/07/19 12:10 Freq: Status: Active Protocol: Document 02/05/20 16:15 SAK (Rec: 02/05/20 16:31 SAK [id number]) Compression Pump Treatment Treatment Location Right Leg Pressure Amount (mmHg) (mmHG) 45 Inflation Time (Seconds) 45 Deflation Time (Seconds) 10 Treatment Duration (minutes) 30 Treatment Tolerance Good PT-OP-T Assessment and Plan Start: 05/07/19 12:10 Freq: Status: Active Protocol: Document 02/26/20 14:45 [facility] (Rec: 02/26/20 14:50 [facility] [id number]) Physical Therapy Assessment Rehab Potential Rehabilitation Potential Fair Evaluation Complexity Number of Personal Factors/Comorbidities 1-2 Number of Body Systems Impaired 3 Clinical Presentation at Evaluation Unstable Impairments Impairments Activity Tolerance,Balance, Edema,Functional Activities, Functional Mobility,Gait, Integument,Pain,Posture,ROM, Sensation,Soft Tissue Mobility ,Strength Other Impairments Pt presents with decreased sensation to light touch in his posterior LEs and feet. Goals 7 Dovetailer Goal (LTG) Patient will demonstrate good understanding of self- management of his LE edema and be fit with appropriate compression garment. 01/29/20: some goal progress, but patient not seen for 1 month due to possible Covid19 exposure as well as 2 falls. LTG Duration 03/29/20 6 Impairment bilateral LE edema right greater than left Intermediate Goal (LTG) Decrease lymphedema to stable level (no increase or decrease greater than 1 cm over the course of 1 week). 01/29/20: had demonstrated some progress with decrease in edema with first 2 PT treatments for lymphedema but due to missed PT as above, lymphedema has increased again . LTG Duration 03/29/20 5 Dovetailer Goal (LTG) Pt will gait train 600 feet with LRAD in 6 minutes to improve community distance ambulation by 03/29/2020. 11/28/2019: Pt gait trains 458 ft in 6 minutes with rolling walker 01/29/20: Patient not able to be tested today; not up to it due to a couple recent falls, as well as missed PT due to possible Covid19 exposure. LTG Duration 03/29/20 4 Impairment Inability to perform sit to stand on eval date without UE support Intermediate Goal (LTG) Pt will perform 15 reps sit to stand without UE support in 30 sec to improve functional I by 03/29/2020. 01/29/20: not up to performing this test today as above LTG Duration 03/29/20 3 Dovetailer Goal (LTG) Pt will perform progressive HEP with I including flexibility, strengthening, gait and balance exercises to increase functional mobility by 03/29/2020. 11/28/2019: Pt has been doing some exercises 01/29/20: Compliance to HEP variable, minimal over past week after falls LTG Duration 03/29/20 2 Intermediate Goal (LTG) Pt will deny falls for 2 months to decrease injury risk by 03/29/2020. 11/28/2019: Pt had fall OOB when his lymphedema wraps prevented him from extending his legs. EMS had to help him get up 01/29/20: 2 falls over past week requiring EMS to help him. Patient educated in safety measures. LTG Duration 03/29/20 1 Dovetailer Goal (LTG) Pt will present with an improved Oswestry LBP scale score to reflect no more than 30% impairment by 03/29/2020. 11/28/2019: Pt presents with Oswestry LBP score reflecting 64% impairment 01/29/20: pain has increased with recent falls, questionnaire not done today due to focus on lymphedema, will do next treatment. LTG Duration 03/29/20 Assessment Summary Assessment Sitting exercises today d/t pt with abdominal discomfort and awaiting testing. Con't to progress exercises as pt tolerates. Gait training 75'x2 with RW today. Physical Therapy Plan Frequency and Duration Frequency of Treatment 2x/Week Duration of Treatment 8 weeks Plan of Care Start Date 01/29/20 Plan of Care End Date 03/29/20 Therapeutic Interventions Therapeutic Interventions Balance Training,Canalithic Repositioning,Gait Training, Home Exercise Program, Lymphedema Management,Manual Therapy,Neuromuscular Re- education,Patient/Caregiver Education,Self-Care/Home Management,Sensory Integration ,Soft Tissue Mobilization, Taping,Therapeutic Activities, Therapeutic Exercises Next Visit Focus/Plan Next Note Type Progress Note Next Visit Plan Continue lymphedema management , and therapeutic exercise progression to decrease pain and improve gait, strength, balance, and LBP.
--- NOTE | 2020-03-17 08:55 | PT-OP ANOTE ---
PT calls pt since he has not been to PT in a couple of weeks. His diverticulitis has calmed down. His bone scan was negative. He has PT tomorrow. He is interested in an upright walker.
--- NOTE | 2020-03-18 12:08 | PT-OP ANOTE ---
Pt called in to cancel today's appointment. 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 He is unable to get another utility driver.
--- NOTE | 2020-03-23 13:11 | PT.OTN ---
Current Diagnoses Lymphedema, not elsewhere classified (03/23/20) Low back pain (03/23/20) Physical Therapy Treatment Note PT-OP-A Visit Information Start: 05/07/19 12:10 Freq: Status: Active Protocol: Document 03/23/20 12:16 MB (Rec: 03/23/20 13:11 MB [id number]) Out-Patient Physical Therapy Visit Information Visit Information Visit Type Treatment Note Visit Start Time 12:16 Visit Stop Time 13:10 Total Visit Minutes 54 Visit Number 04/04 Precautions Precautions Falls, history of orthostasis and a-fib, lymphedema, pt on Eloquist 2x/day PT-OP-B Current Condition Start: 05/07/19 12:10 Freq: Status: Active Protocol: Document 11/21/19 15:06 SAK (Rec: 11/21/19 15:19 SAK [id number]) Current Condition History of Current Condition Onset Date 2 years Current Complaints swelling bilateral LE's History of Current Condition Swelling since fracture right ankle, treated with ORIF surgery and rehab. Mobility has declined, gradual worsening with weight gain. Some discoloration in LE's, swelling some improved with elevation. Doesn't wear compression garment because reports has been unable to find any large enough; has size 15 foot. Worse on right than left. Has been doing PT for mobility, strengthening, pain management. Reports pain creeping back up since not seen in physical therapy. Treatment Goals Patient/Caregiver Goals Decrease lymphedema bilateral LE's to allow improved mobility, improve health. PT-OP-C Subjective Start: 05/07/19 12:10 Freq: Status: Active Protocol: Document 03/23/20 12:16 MB (Rec: 03/23/20 13:11 MB [id number]) OP-PT Subjective Patient Comments Patient Comments I'm tired. Pt reports 4/10 back pain, low back. He does not feel that his pain is well -managed. He cannot receive any other pain medication unless he sees a pain specialist. He cannot get a refill. He does not have a lot of energy. He is sleeping a lot and he is over the diverticulitis. He has not had a fall in three weeks. It was when he was walking down the step to the washer. PT-OP-G Mobility & Gait Start: 05/07/19 12:10 Freq: Status: Active Protocol: Document 05/07/19 12:18 MB (Rec: 05/07/19 15:52 MB [id number]) OP Gait Assessment Comments Gait Comments Forward, flexed posture with use of his bariatric RW with tray. Decreased step-length and foot clearance and pt winces with pain after 112' gait and reports 6.5/10 LBP and so 6MWT stopped. He was able to walk this distance in 80 sec. PT-OP-M Strength Start: 05/07/19 12:10 Freq: Status: Active Protocol: Document 05/07/19 12:18 MB (Rec: 05/07/19 15:52 MB [id number]) Hip Strength Hip Manual Muscle Testing Left Flexion (L2) 2- Poor- Right Flexion (L2) 2- Poor- Comments Pt is unable to clear thigh off bench Knee Strength Knee Manual Muscle Testing Left Extension (L3) 3 Fair Comments Pt is unable to clear his foot back in sitting to assess knee flexion. Right Extension (L3) 3 Fair Comments Pt is unable to clear his foot back in sitting to assess knee flexion. Ankle/Foot Strength Ankle and Foot Manual Muscle Testing Left Dorsiflexion (L4) 4 Good Plantarflexion (S1) 4 Good Comments Great toe extension left 4/5 Right Dorsiflexion (L4) 4 Good Plantarflexion (S1) 3 Fair Comments Great toe extension right 3+/5 PT-OP-N Lymphedema Start: 11/19/19 12:12 Freq: Status: Active Protocol: Document 02/26/20 14:45 SAK (Rec: 02/26/20 16:18 SAK [id number]) Lymphedema Measurements Lower Extremity Circumference Measurements right LE MT Heads 26 cm Medial Malleolus 38.6 cm 10 cm From Medial Malleolus 40.8 cm 20 cm From Medial Malleolus 47.5 cm 30 cm From Medial Malleolus 57.4 cm 40 cm From Medial Malleolus 63.8 cm 50 cm From Medial Malleolus 63.4 cm 60 cm From Medial Malleolus 79.9 cm 70 cm From Medial Malleolus 93.5 cm 80 cm From Medial Malleolus 104 cm left LE MT Heads 26.2 cm Medial Malleolus 38.9 cm 10 cm From Medial Malleolus 42.4 cm 20 cm From Medial Malleolus 51.7 cm 30 cm From Medial Malleolus 57.7 cm 40 cm From Medial Malleolus 57.3 cm 50 cm From Medial Malleolus 72.9 cm 60 cm From Medial Malleolus 90.3 cm 70 cm From Medial Malleolus 95.1 cm 80 cm From Medial Malleolus 104.2 cm PT-OP-Q Treatments Start: 05/07/19 12:10 Freq: Status: Active Protocol: Document 03/23/20 12:16 MB (Rec: 03/23/20 13:11 MB [id number]) Therapeutic Exercises Standing Exercises Sit to stands Comments 9 reps without UE support today Other Exercises Reviewed exercises today Other Exercise Name Reviewed these HEP exercises Comments APs, LAQ, sit to stands, EFT Gait Training Gait Activity 6MWT Comments 334 feet in 6 minutes with 2WRW this date. Distance is limited by pain and pt takes many sitting rest breaks. Back pain up to 8.5/10. Pain improves with heat. Other gait trials with cues for upright posture and RW Self-Care/Home Management Treatment Education Other Education Con't HEP, bring in handouts so that PT can review and revise next treatment date. Benefits of heat. Benefits and risks of e-stim and PT and pt agree that this may not be the best current treatment for him PT-OP-R Modalities Start: 05/07/19 12:10 Freq: Status: Active Protocol: Document 02/05/20 16:15 SAK (Rec: 02/05/20 16:31 SAK [id number]) Compression Pump Treatment Treatment Location Right Leg Pressure Amount (mmHg) (mmHG) 45 Inflation Time (Seconds) 45 Deflation Time (Seconds) 10 Treatment Duration (minutes) 30 Treatment Tolerance Good PT-OP-T Assessment and Plan Start: 05/07/19 12:10 Freq: Status: Active Protocol: Document 03/23/20 12:16 MB (Rec: 03/23/20 13:11 MB [id number]) Physical Therapy Assessment Rehab Potential Rehabilitation Potential Fair Evaluation Complexity Number of Personal Factors/Comorbidities 1-2 Number of Body Systems Impaired 3 Clinical Presentation at Evaluation Unstable Impairments Impairments Activity Tolerance,Balance, Edema,Functional Activities, Functional Mobility,Gait, Integument,Pain,Posture,ROM, Sensation,Soft Tissue Mobility ,Strength Other Impairments Pt presents with decreased sensation to light touch in his posterior LEs and feet. Goals 5 Plasma Processor Goal (LTG) Pt will gait train 600 feet with LRAD in 6 minutes to improve community distance ambulation by 05/23/2020. 03/23/2020: Gait distance limited by pain up to 8.5/10. Pt gait trains with 2WRW. Distance is 334 feet LTG Duration 8 weeks 4 Correction Goal (LTG) Pt will perform 15 reps sit to stand without UE support in 30 sec to improve functional I by 05/23/2020. 03/23/2020: Pt performs 9 reps sit to stand without UE support LTG Duration 8 weeks 3 Correction Goal (LTG) Pt will perform progressive HEP with I including flexibility, strengthening, gait and balance exercises to increase functional mobility by 05/23/2020. 03/23/2020: Pt has been performing some sit to stands, LAQs, APs and EFT LTG Duration 8 weeks 2 Correction Goal (LTG) Pt will deny falls for 2 months to decrease injury risk by 05/23/2020. 03/23/2020: Last fall 3 weeks ago LTG Duration 8 weeks 1 Correction Goal (LTG) Pt will present with an improved Oswestry LBP scale score to reflect no more than 40% impairment by 05/23/2020. 03/23/2020: Oswestry reflects 68% impairment LTG Duration 8 weeks Assessment Summary Assessment Pt has had some medical complications that have disrupted PT in February. These include diverticulitis, fall, and transporter being ill. He con't HEP exercises at home and has had ongoing back pain up to 8.5/10. Sit to stands, gait distance and Oswestry have not improved as a result of pain and missed therapy course. Pt will con't to benefit from PT for balance , strengthening and gait. Barriers include multiple medical co-morbidities and transportation issues. Physical Therapy Plan Frequency and Duration Frequency of Treatment 2x/Week Duration of Treatment 8 weeks Plan of Care Start Date 03/23/20 Plan of Care End Date 05/25/20 Therapeutic Interventions Therapeutic Interventions Balance Training,Canalithic Repositioning,Gait Training, Home Exercise Program, Lymphedema Management,Manual Therapy,Neuromuscular Re- education,Patient/Caregiver Education,Self-Care/Home Management,Sensory Integration ,Soft Tissue Mobilization, Taping,Therapeutic Activities, Therapeutic Exercises Next Visit Focus/Plan Next Note Type Treatment Note Next Visit Plan Progress gait, therapeutic exercise progression to decrease pain and improve gait , strength, balance, and LBP. Work on exercises to help get socks on.
--- NOTE | 2020-03-23 13:12 | PT.OPPOC ---
Physical, Occupational & Speech Therapy At [facility] Current Diagnoses Lymphedema, not elsewhere classified (03/23/20) Low back pain (03/23/20) Visit Care Team Role Provider Type Yolis Salazar DO Attending Provider Non-Staff Primary Care Provider Specialty: Family Practice Address: [address] [place] [address], [phone] Email: Plan Of Care PT-OP-T Assessment and Plan Start: 05/07/19 12:10 Freq: Status: Active Protocol: Document 03/23/20 12:16 MB (Rec: 03/23/20 13:11 MB [id number]) Physical Therapy Assessment Rehab Potential Rehabilitation Potential Fair Evaluation Complexity Number of Personal Factors/Comorbidities 1-2 Number of Body Systems Impaired 3 Clinical Presentation at Evaluation Unstable Impairments Impairments Activity Tolerance,Balance, Edema,Functional Activities, Functional Mobility,Gait, Integument,Pain,Posture,ROM, Sensation,Soft Tissue Mobility ,Strength Other Impairments Pt presents with decreased sensation to light touch in his posterior LEs and feet. Goals 5 Fdc Goal (LTG) Pt will gait train 600 feet with LRAD in 6 minutes to improve community distance ambulation by 05/23/2020. 03/23/2020: Gait distance limited by pain up to 8.5/10. Pt gait trains with 2WRW. Distance is 334 feet LTG Duration 8 weeks 4 Salvage Grinder Goal (LTG) Pt will perform 15 reps sit to stand without UE support in 30 sec to improve functional I by 05/23/2020. 03/23/2020: Pt performs 9 reps sit to stand without UE support LTG Duration 8 weeks 3 Salvage Grinder Goal (LTG) Pt will perform progressive HEP with I including flexibility, strengthening, gait and balance exercises to increase functional mobility by 05/23/2020. 03/23/2020: Pt has been performing some sit to stands, LAQs, APs and EFT LTG Duration 8 weeks 2 Salvage Grinder Goal (LTG) Pt will deny falls for 2 months to decrease injury risk by 05/23/2020. 03/23/2020: Last fall 3 weeks ago LTG Duration 8 weeks 1 Salvage Grinder Goal (LTG) Pt will present with an improved Oswestry LBP scale score to reflect no more than 40% impairment by 05/23/2020. 03/23/2020: Oswestry reflects 68% impairment LTG Duration 8 weeks Assessment Summary Assessment Pt has had some medical complications that have disrupted PT in February. These include diverticulitis, fall, and transporter being ill. He con't HEP exercises at home and has had ongoing back pain up to 8.5/10. Sit to stands, gait distance and Oswestry have not improved as a result of pain and missed therapy course. Pt will con't to benefit from PT for balance , strengthening and gait. Barriers include multiple medical co-morbidities and transportation issues. Physical Therapy Plan Frequency and Duration Frequency of Treatment 2x/Week Duration of Treatment 8 weeks Plan of Care Start Date 03/23/20 Plan of Care End Date 05/25/20 Therapeutic Interventions Therapeutic Interventions Balance Training,Canalithic Repositioning,Gait Training, Home Exercise Program, Lymphedema Management,Manual Therapy,Neuromuscular Re- education,Patient/Caregiver Education,Self-Care/Home Management,Sensory Integration ,Soft Tissue Mobilization, Taping,Therapeutic Activities, Therapeutic Exercises Next Visit Focus/Plan Next Note Type Treatment Note Next Visit Plan Progress gait, therapeutic exercise progression to decrease pain and improve gait , strength, balance, and LBP. Work on exercises to help get socks on. Plan of Care Dates Plan of Care Start Date 03/23/20 Plan of Care End Date 05/25/20 Electronically Signed by: Faina Zamarripa, PT 03/23/20 0991 Please Sign and Return: I have reviewed this Plan of Care and certify that the skilled therapy services above are required to meet the patient?s needs. Physician Signature Date Printed Name and Credentials Clinical Instructor Signature Printed Name and Credentials
--- NOTE | 2020-03-27 12:48 | PT.OTN ---
Current Diagnoses Lymphedema, not elsewhere classified (03/27/20) Low back pain (03/27/20) Physical Therapy Treatment Note PT-OP-A Visit Information Start: 05/07/19 12:10 Freq: Status: Active Protocol: Document 03/27/20 12:09 MB (Rec: 03/27/20 12:47 MB [id number]) Out-Patient Physical Therapy Visit Information Visit Information Visit Type Treatment Note Visit Note Medicare, KX Visit Start Time 12:09 Visit Stop Time 12:47 Total Visit Minutes 38 Visit Number 1/next 10 visits Precautions Precautions Falls, history of orthostasis and a-fib, lymphedema, pt on Eloquist 2x/day PT-OP-B Current Condition Start: 05/07/19 12:10 Freq: Status: Active Protocol: Document 11/21/19 15:06 SAK (Rec: 11/21/19 15:19 SAK [id number]) Current Condition History of Current Condition Onset Date 2 years Current Complaints swelling bilateral LE's History of Current Condition Swelling since fracture right ankle, treated with ORIF surgery and rehab. Mobility has declined, gradual worsening with weight gain. Some discoloration in LE's, swelling some improved with elevation. Doesn't wear compression garment because reports has been unable to find any large enough; has size 15 foot. Worse on right than left. Has been doing PT for mobility, strengthening, pain management. Reports pain creeping back up since not seen in physical therapy. Treatment Goals Patient/Caregiver Goals Decrease lymphedema bilateral LE's to allow improved mobility, improve health. PT-OP-C Subjective Start: 05/07/19 12:10 Freq: Status: Active Protocol: Document 03/27/20 12:09 MB (Rec: 03/27/20 12:47 MB [id number]) OP-PT Subjective Patient Comments Patient Comments I only slept 2 hours last night. My back hurt and I couldn't get comfortable. PT-OP-G Mobility & Gait Start: 05/07/19 12:10 Freq: Status: Active Protocol: Document 05/07/19 12:18 MB (Rec: 05/07/19 15:52 MB [id number]) OP Gait Assessment Comments Gait Comments Forward, flexed posture with use of his bariatric RW with tray. Decreased step-length and foot clearance and pt winces with pain after 112' gait and reports 6.5/10 LBP and so 6MWT stopped. He was able to walk this distance in 80 sec. PT-OP-M Strength Start: 05/07/19 12:10 Freq: Status: Active Protocol: Document 05/07/19 12:18 MB (Rec: 05/07/19 15:52 MB [id number]) Hip Strength Hip Manual Muscle Testing Left Flexion (L2) 2- Poor- Right Flexion (L2) 2- Poor- Comments Pt is unable to clear thigh off bench Knee Strength Knee Manual Muscle Testing Left Extension (L3) 3 Fair Comments Pt is unable to clear his foot back in sitting to assess knee flexion. Right Extension (L3) 3 Fair Comments Pt is unable to clear his foot back in sitting to assess knee flexion. Ankle/Foot Strength Ankle and Foot Manual Muscle Testing Left Dorsiflexion (L4) 4 Good Plantarflexion (S1) 4 Good Comments Great toe extension left 4/5 Right Dorsiflexion (L4) 4 Good Plantarflexion (S1) 3 Fair Comments Great toe extension right 3+/5 PT-OP-N Lymphedema Start: 11/19/19 12:12 Freq: Status: Active Protocol: Document 02/26/20 14:45 SAK (Rec: 02/26/20 16:18 SAK [id number]) Lymphedema Measurements Lower Extremity Circumference Measurements right LE MT Heads 26 cm Medial Malleolus 38.6 cm 10 cm From Medial Malleolus 40.8 cm 20 cm From Medial Malleolus 47.5 cm 30 cm From Medial Malleolus 57.4 cm 40 cm From Medial Malleolus 63.8 cm 50 cm From Medial Malleolus 63.4 cm 60 cm From Medial Malleolus 79.9 cm 70 cm From Medial Malleolus 93.5 cm 80 cm From Medial Malleolus 104 cm left LE MT Heads 26.2 cm Medial Malleolus 38.9 cm 10 cm From Medial Malleolus 42.4 cm 20 cm From Medial Malleolus 51.7 cm 30 cm From Medial Malleolus 57.7 cm 40 cm From Medial Malleolus 57.3 cm 50 cm From Medial Malleolus 72.9 cm 60 cm From Medial Malleolus 90.3 cm 70 cm From Medial Malleolus 95.1 cm 80 cm From Medial Malleolus 104.2 cm PT-OP-Q Treatments Start: 05/07/19 12:10 Freq: Status: Active Protocol: Document 03/27/20 12:09 MB (Rec: 03/27/20 12:47 MB [id number]) Cardio Equipment Upper Body Ergometer (UBE) Duration (Minutes) 10 Other 5' forwards and 5' backwards, rest breaks d/t LBP Therapeutic Exercises Sitting Exercises Shoulder flexion Comments 2 reps and pt to con't 5x at least once a day Pelvic tilt and abdominal drawing in Comments 3 reps with 5 sec hold Scapular retraction Comments 3 reps with 5 sec hold EFT tapping Comments 10 taps all positions, demo, handout for home Sit to stands without UE support Comments Pt is performing 6 reps 2x/day and 2 reps when transferring Diaphragmatic breathing Comments Sitting today and pt to perform as needed at home Standing Exercises Calf stretches Comments Reviewed today, photo in folder Mini squat Comments Reviewed today, photo in folder PT-OP-R Modalities Start: 05/07/19 12:10 Freq: Status: Active Protocol: Document 02/05/20 16:15 SAK (Rec: 02/05/20 16:31 SAK [id number]) Compression Pump Treatment Treatment Location Right Leg Pressure Amount (mmHg) (mmHG) 45 Inflation Time (Seconds) 45 Deflation Time (Seconds) 10 Treatment Duration (minutes) 30 Treatment Tolerance Good PT-OP-T Assessment and Plan Start: 05/07/19 12:10 Freq: Status: Active Protocol: Document 03/27/20 12:09 MB (Rec: 03/27/20 12:47 MB [id number]) Physical Therapy Assessment Rehab Potential Rehabilitation Potential Fair Evaluation Complexity Number of Personal Factors/Comorbidities 1-2 Number of Body Systems Impaired 3 Clinical Presentation at Evaluation Unstable Impairments Impairments Activity Tolerance,Balance, Edema,Functional Activities, Functional Mobility,Gait, Integument,Pain,Posture,ROM, Sensation,Soft Tissue Mobility ,Strength Other Impairments Pt presents with decreased sensation to light touch in his posterior LEs and feet. Goals 5 Long-Term Goal (LTG) Pt will gait train 600 feet with LRAD in 6 minutes to improve community distance ambulation by 05/23/2020. 03/23/2020: Gait distance limited by pain up to 8.5/10. Pt gait trains with 2WRW. Distance is 334 feet LTG Duration 8 weeks 4 Recreation Attendant Supervisor Goal (LTG) Pt will perform 15 reps sit to stand without UE support in 30 sec to improve functional I by 05/23/2020. 03/23/2020: Pt performs 9 reps sit to stand without UE support LTG Duration 8 weeks 3 Long-Term Goal (LTG) Pt will perform progressive HEP with I including flexibility, strengthening, gait and balance exercises to increase functional mobility by 05/23/2020. 03/23/2020: Pt has been performing some sit to stands, LAQs, APs and EFT LTG Duration 8 weeks 2 Recreation Attendant Supervisor Goal (LTG) Pt will deny falls for 2 months to decrease injury risk by 05/23/2020. 03/23/2020: Last fall 3 weeks ago LTG Duration 8 weeks 1 Recreation Attendant Supervisor Goal (LTG) Pt will present with an improved Oswestry LBP scale score to reflect no more than 40% impairment by 05/23/2020. 03/23/2020: Oswestry reflects 68% impairment LTG Duration 8 weeks Assessment Summary Assessment Progressed back to UBE today, with rest break d/t 5/10 LBP and spasm. Reviewed previous HEP and to con't at home, still need to re-add strengthening exercises. Frequent rest breaks today d/t pain up to 7/10 with sitting. Physical Therapy Plan Frequency and Duration Frequency of Treatment 2x/Week Duration of Treatment 8 weeks Plan of Care Start Date 03/23/20 Plan of Care End Date 05/25/20 Therapeutic Interventions Therapeutic Interventions Balance Training,Canalithic Repositioning,Gait Training, Home Exercise Program, Lymphedema Management,Manual Therapy,Neuromuscular Re- education,Patient/Caregiver Education,Self-Care/Home Management,Sensory Integration ,Soft Tissue Mobilization, Taping,Therapeutic Activities, Therapeutic Exercises Next Visit Focus/Plan Next Note Type Treatment Note Next Visit Plan Review and re-add band hip exercises and side stepping as well as lymphedema exercises
--- NOTE | 2020-04-15 12:55 | PT.OTN ---
Current Diagnoses Lymphedema, not elsewhere classified (04/15/20) Low back pain (04/15/20) Physical Therapy Treatment Note PT-OP-A Visit Information Start: 05/07/19 12:10 Freq: Status: Active Protocol: Document 04/15/20 12:15 MB (Rec: 04/15/20 12:54 MB [id number]) Out-Patient Physical Therapy Visit Information Visit Information Visit Type Treatment Note Visit Note Medicare, KX Visit Start Time 12:15 Visit Stop Time 12:55 Total Visit Minutes 40 Visit Number 2/next 10 visits Precautions Precautions Falls, history of orthostasis and a-fib, lymphedema, pt on Eloquist 2x/day PT-OP-B Current Condition Start: 05/07/19 12:10 Freq: Status: Active Protocol: Document 11/21/19 15:06 SAK (Rec: 11/21/19 15:19 SAK [id number]) Current Condition History of Current Condition Onset Date 2 years Current Complaints swelling bilateral LE's History of Current Condition Swelling since fracture right ankle, treated with ORIF surgery and rehab. Mobility has declined, gradual worsening with weight gain. Some discoloration in LE's, swelling some improved with elevation. Doesn't wear compression garment because reports has been unable to find any large enough; has size 15 foot. Worse on right than left. Has been doing PT for mobility, strengthening, pain management. Reports pain creeping back up since not seen in physical therapy. Treatment Goals Patient/Caregiver Goals Decrease lymphedema bilateral LE's to allow improved mobility, improve health. PT-OP-C Subjective Start: 05/07/19 12:10 Freq: Status: Active Protocol: Document 04/15/20 12:15 MB (Rec: 04/15/20 12:54 MB [id number]) OP-PT Subjective Patient Comments Patient Comments Well, my COVID test was negative. My back hurts. PT-OP-G Mobility & Gait Start: 05/07/19 12:10 Freq: Status: Active Protocol: Document 05/07/19 12:18 MB (Rec: 05/07/19 15:52 MB [id number]) OP Gait Assessment Comments Gait Comments Forward, flexed posture with use of his bariatric RW with tray. Decreased step-length and foot clearance and pt winces with pain after 112' gait and reports 6.5/10 LBP and so 6MWT stopped. He was able to walk this distance in 80 sec. PT-OP-M Strength Start: 05/07/19 12:10 Freq: Status: Active Protocol: Document 05/07/19 12:18 MB (Rec: 05/07/19 15:52 MB [id number]) Hip Strength Hip Manual Muscle Testing Left Flexion (L2) 2- Poor- Right Flexion (L2) 2- Poor- Comments Pt is unable to clear thigh off bench Knee Strength Knee Manual Muscle Testing Left Extension (L3) 3 Fair Comments Pt is unable to clear his foot back in sitting to assess knee flexion. Right Extension (L3) 3 Fair Comments Pt is unable to clear his foot back in sitting to assess knee flexion. Ankle/Foot Strength Ankle and Foot Manual Muscle Testing Left Dorsiflexion (L4) 4 Good Plantarflexion (S1) 4 Good Comments Great toe extension left 4/5 Right Dorsiflexion (L4) 4 Good Plantarflexion (S1) 3 Fair Comments Great toe extension right 3+/5 PT-OP-N Lymphedema Start: 11/19/19 12:12 Freq: Status: Active Protocol: Document 02/26/20 14:45 SAK (Rec: 02/26/20 16:18 SAK [id number]) Lymphedema Measurements Lower Extremity Circumference Measurements right LE MT Heads 26 cm Medial Malleolus 38.6 cm 10 cm From Medial Malleolus 40.8 cm 20 cm From Medial Malleolus 47.5 cm 30 cm From Medial Malleolus 57.4 cm 40 cm From Medial Malleolus 63.8 cm 50 cm From Medial Malleolus 63.4 cm 60 cm From Medial Malleolus 79.9 cm 70 cm From Medial Malleolus 93.5 cm 80 cm From Medial Malleolus 104 cm left LE MT Heads 26.2 cm Medial Malleolus 38.9 cm 10 cm From Medial Malleolus 42.4 cm 20 cm From Medial Malleolus 51.7 cm 30 cm From Medial Malleolus 57.7 cm 40 cm From Medial Malleolus 57.3 cm 50 cm From Medial Malleolus 72.9 cm 60 cm From Medial Malleolus 90.3 cm 70 cm From Medial Malleolus 95.1 cm 80 cm From Medial Malleolus 104.2 cm PT-OP-Q Treatments Start: 05/07/19 12:10 Freq: Status: Active Protocol: Document 04/15/20 12:15 MB (Rec: 04/15/20 12:54 MB [id number]) Therapeutic Exercises Sitting Exercises Back forms analyst upper traps Comments Right upper traps, MWM cervical rotation, pt states right hand trouble LE Lymphedema exercise Comments 10 reps of all exercises today with cues, 5 reps shoulder flexion, Manual Therapy Treatment Other Other Manual Treatments STM and MWM upper traps PT-OP-R Modalities Start: 05/07/19 12:10 Freq: Status: Active Protocol: Document 02/05/20 16:15 SAK (Rec: 02/05/20 16:31 SAK [id number]) Compression Pump Treatment Treatment Location Right Leg Pressure Amount (mmHg) (mmHG) 45 Inflation Time (Seconds) 45 Deflation Time (Seconds) 10 Treatment Duration (minutes) 30 Treatment Tolerance Good PT-OP-T Assessment and Plan Start: 05/07/19 12:10 Freq: Status: Active Protocol: Document 04/15/20 12:15 MB (Rec: 04/15/20 12:54 MB [id number]) Physical Therapy Assessment Rehab Potential Rehabilitation Potential Fair Evaluation Complexity Number of Personal Factors/Comorbidities 1-2 Number of Body Systems Impaired 3 Clinical Presentation at Evaluation Unstable Impairments Impairments Activity Tolerance,Balance, Edema,Functional Activities, Functional Mobility,Gait, Integument,Pain,Posture,ROM, Sensation,Soft Tissue Mobility ,Strength Other Impairments Pt presents with decreased sensation to light touch in his posterior LEs and feet. Goals 5 [employer] Supervisor Goal (LTG) Pt will gait train 600 feet with LRAD in 6 minutes to improve community distance ambulation by 05/23/2020. 03/23/2020: Gait distance limited by pain up to 8.5/10. Pt gait trains with 2WRW. Distance is 334 feet LTG Duration 8 weeks 4 [facility] Goal (LTG) Pt will perform 15 reps sit to stand without UE support in 30 sec to improve functional I by 05/23/2020. 03/23/2020: Pt performs 9 reps sit to stand without UE support LTG Duration 8 weeks 3 [facility] Goal (LTG) Pt will perform progressive HEP with I including flexibility, strengthening, gait and balance exercises to increase functional mobility by 05/23/2020. 03/23/2020: Pt has been performing some sit to stands, LAQs, APs and EFT LTG Duration 8 weeks 2 [facility] Goal (LTG) Pt will deny falls for 2 months to decrease injury risk by 05/23/2020. 03/23/2020: Last fall 3 weeks ago LTG Duration 8 weeks 1 [employer] Supervisor Goal (LTG) Pt will present with an improved Oswestry LBP scale score to reflect no more than 40% impairment by 05/23/2020. 03/23/2020: Oswestry reflects 68% impairment LTG Duration 8 weeks Assessment Summary Assessment Pt con't with back pain that starts at 4.5/10 at the beginning of treatment. He requires rest breaks during treatment. Pt takes his prescribed muscle relaxor towards the end of exercises to help with back spasm pain up to 6/10. Reviewed LE exercises today for range and edema and ed to perform at home. Con't progression as tolerates. Manual work today to help decrease spasms. Physical Therapy Plan Frequency and Duration Frequency of Treatment 2x/Week Duration of Treatment 8 weeks Plan of Care Start Date 03/23/20 Plan of Care End Date 05/25/20 Therapeutic Interventions Therapeutic Interventions Balance Training,Canalithic Repositioning,Gait Training, Home Exercise Program, Lymphedema Management,Manual Therapy,Neuromuscular Re- education,Patient/Caregiver Education,Self-Care/Home Management,Sensory Integration ,Soft Tissue Mobilization, Taping,Therapeutic Activities, Therapeutic Exercises Next Visit Focus/Plan Next Note Type Treatment Note Next Visit Plan Review and re-add band hip exercises and side stepping, progress gait and balance exercises
--- NOTE | 2020-04-22 14:00 | PT-OP ANOTE ---
Pt calls to state that he is very dizzy. He does not think that is positional vertigo like in the past. PT encourages him to go to the doctor. Pt calls back and states that he returned to Dr. Salazar and his BP was 80/40 and she altered his Metoprolol.
--- NOTE | 2020-04-29 14:17 | PT.OTN ---
Current Diagnoses Lymphedema, not elsewhere classified (04/29/20) Low back pain (04/29/20) Physical Therapy Treatment Note PT-OP-A Visit Information Start: 05/07/19 12:10 Freq: Status: Active Protocol: Document 04/29/20 13:02 MB (Rec: 04/29/20 13:52 MB [id number]) Out-Patient Physical Therapy Visit Information Visit Information Visit Type Treatment Note Visit Start Time 13:02 Visit Stop Time 13:45 Total Visit Minutes 43 Visit Number 3/next 10 visits Precautions Precautions Falls, history of orthostasis and a-fib, lymphedema, pt on Eloquist 2x/day PT-OP-B Current Condition Start: 05/07/19 12:10 Freq: Status: Active Protocol: Document 11/21/19 15:06 SAK (Rec: 11/21/19 15:19 SAK [id number]) Current Condition History of Current Condition Onset Date 2 years Current Complaints swelling bilateral LE's History of Current Condition Swelling since fracture right ankle, treated with ORIF surgery and rehab. Mobility has declined, gradual worsening with weight gain. Some discoloration in LE's, swelling some improved with elevation. Doesn't wear compression garment because reports has been unable to find any large enough; has size 15 foot. Worse on right than left. Has been doing PT for mobility, strengthening, pain management. Reports pain creeping back up since not seen in physical therapy. Treatment Goals Patient/Caregiver Goals Decrease lymphedema bilateral LE's to allow improved mobility, improve health. PT-OP-C Subjective Start: 05/07/19 12:10 Freq: Status: Active Protocol: Document 04/29/20 13:02 MB (Rec: 04/29/20 13:52 MB [id number]) OP-PT Subjective Patient Comments Patient Comments I have some back spasming and I feel like I have a package of marbles in my head when I turn sometimes. Pt states that his symptoms do feel a little bit like when he had positional vertigo in the past . Pt is also off diuretic. PT-OP-G Mobility & Gait Start: 05/07/19 12:10 Freq: Status: Active Protocol: Document 05/07/19 12:18 MB (Rec: 05/07/19 15:52 MB [id number]) OP Gait Assessment Comments Gait Comments Forward, flexed posture with use of his bariatric RW with tray. Decreased step-length and foot clearance and pt winces with pain after 112' gait and reports 6.5/10 LBP and so 6MWT stopped. He was able to walk this distance in 80 sec. PT-OP-M Strength Start: 05/07/19 12:10 Freq: Status: Active Protocol: Document 05/07/19 12:18 MB (Rec: 05/07/19 15:52 MB [id number]) Hip Strength Hip Manual Muscle Testing Left Flexion (L2) 2- Poor- Right Flexion (L2) 2- Poor- Comments Pt is unable to clear thigh off bench Knee Strength Knee Manual Muscle Testing Left Extension (L3) 3 Fair Comments Pt is unable to clear his foot back in sitting to assess knee flexion. Right Extension (L3) 3 Fair Comments Pt is unable to clear his foot back in sitting to assess knee flexion. Ankle/Foot Strength Ankle and Foot Manual Muscle Testing Left Dorsiflexion (L4) 4 Good Plantarflexion (S1) 4 Good Comments Great toe extension left 4/5 Right Dorsiflexion (L4) 4 Good Plantarflexion (S1) 3 Fair Comments Great toe extension right 3+/5 PT-OP-N Lymphedema Start: 11/19/19 12:12 Freq: Status: Active Protocol: Document 02/26/20 14:45 SAK (Rec: 02/26/20 16:18 SAK [id number]) Lymphedema Measurements Lower Extremity Circumference Measurements right LE MT Heads 26 cm Medial Malleolus 38.6 cm 10 cm From Medial Malleolus 40.8 cm 20 cm From Medial Malleolus 47.5 cm 30 cm From Medial Malleolus 57.4 cm 40 cm From Medial Malleolus 63.8 cm 50 cm From Medial Malleolus 63.4 cm 60 cm From Medial Malleolus 79.9 cm 70 cm From Medial Malleolus 93.5 cm 80 cm From Medial Malleolus 104 cm left LE MT Heads 26.2 cm Medial Malleolus 38.9 cm 10 cm From Medial Malleolus 42.4 cm 20 cm From Medial Malleolus 51.7 cm 30 cm From Medial Malleolus 57.7 cm 40 cm From Medial Malleolus 57.3 cm 50 cm From Medial Malleolus 72.9 cm 60 cm From Medial Malleolus 90.3 cm 70 cm From Medial Malleolus 95.1 cm 80 cm From Medial Malleolus 104.2 cm PT-OP-Q Treatments Start: 05/07/19 12:10 Freq: Status: Active Protocol: Document 04/29/20 13:02 MB (Rec: 04/29/20 14:11 MB [id number]) Therapeutic Activity Therapeutic Activity Sit to stands with activites Comments 6 reps and cues to CGA, surface elevated Car transfer Comments Passenger seat flattened to allow him to get in, PT lifts shoes by the laces and provides min A for each leg to get them into car. PT assists with putting belt buckle secure Bed mobility Comments +2 max A for getting legs on and off plinth, rolling and moving from supine to sit x2. Pt does give a good effort and has most trouble with leg positioning and long sitting. He does try to lift legs on his own for mobility Gait Training Gait Activity RW Comments PT raises walker 1 and pt requires superv to gait today d/t symptoms of dizziness, decreased step-length and foot clearance and increased forward flexed posture, 75'x2, ongoing education about safe gait training Self-Care/Home Management Treatment Education Other Education Ed pt on cervical rotation and extension, increase non- caffeinated fluid intake and staying up Canalithic Repositioning BPPV Treatment Other Comments Modified Christian[place]. Pt moves into right Joel-Hallpike with getting onto plinth rather than allowing PT to assist and so PT cannot move him through canalith repositioning. He presents with right posterior canalithiasis and requires +2 max asst for rolling and supine to sit x2 and for treatment of BPPV and then transfers after this. He does not tolerate re-checking for BPPV d/t back pain. PT-OP-R Modalities Start: 05/07/19 12:10 Freq: Status: Active Protocol: Document 02/05/20 16:15 SAK (Rec: 02/05/20 16:31 SAK [id number]) Compression Pump Treatment Treatment Location Right Leg Pressure Amount (mmHg) (mmHG) 45 Inflation Time (Seconds) 45 Deflation Time (Seconds) 10 Treatment Duration (minutes) 30 Treatment Tolerance Good PT-OP-T Assessment and Plan Start: 05/07/19 12:10 Freq: Status: Active Protocol: Document 04/29/20 13:02 MB (Rec: 04/29/20 13:52 MB [id number]) Physical Therapy Assessment Rehab Potential Rehabilitation Potential Fair Evaluation Complexity Number of Personal Factors/Comorbidities 1-2 Number of Body Systems Impaired 3 Clinical Presentation at Evaluation Unstable Impairments Impairments Activity Tolerance,Balance, Edema,Functional Activities, Functional Mobility,Gait, Integument,Pain,Posture,ROM, Sensation,Soft Tissue Mobility ,Strength Other Impairments Pt presents with decreased sensation to light touch in his posterior LEs and feet. Goals 5 Intermediate Goal (LTG) Pt will gait train 600 feet with LRAD in 6 minutes to improve community distance ambulation by 05/23/2020. 03/23/2020: Gait distance limited by pain up to 8.5/10. Pt gait trains with 2WRW. Distance is 334 feet LTG Duration 8 weeks 4 [employer] Goal (LTG) Pt will perform 15 reps sit to stand without UE support in 30 sec to improve functional I by 05/23/2020. 03/23/2020: Pt performs 9 reps sit to stand without UE support LTG Duration 8 weeks 3 [employer] Goal (LTG) Pt will perform progressive HEP with I including flexibility, strengthening, gait and balance exercises to increase functional mobility by 05/23/2020. 03/23/2020: Pt has been performing some sit to stands, LAQs, APs and EFT LTG Duration 8 weeks 2 Intermediate Goal (LTG) Pt will deny falls for 2 months to decrease injury risk by 05/23/2020. 03/23/2020: Last fall 3 weeks ago LTG Duration 8 weeks 1 Intermediate Goal (LTG) Pt will present with an improved Oswestry LBP scale score to reflect no more than 40% impairment by 05/23/2020. 03/23/2020: Oswestry reflects 68% impairment LTG Duration 8 weeks Assessment Summary Assessment BP and HR in left forearm at elbow: 109/75, 89 sitting; does not read in standing and so pt sits back down and his BP and HR are 120/94, 70. Pt has known a-fib, orthostasis. He reports light-headedness and back spasming. Pt presents with right posterior canalithiasis BPPV with testing and PT treats pt. Pt does not tolerate a second treatment d/t 8/10 back pain and he takes muscle relaxer. Pt requires superv for gait training out to car and assist for moving legs into car. Pt has to recline greatly in the car to get in and PT does not note nystagmus. Con't PT efforts. Physical Therapy Plan Frequency and Duration Frequency of Treatment 2x/Week Duration of Treatment 8 weeks Plan of Care Start Date 03/23/20 Plan of Care End Date 05/25/20 Therapeutic Interventions Therapeutic Interventions Balance Training,Canalithic Repositioning,Gait Training, Home Exercise Program, Lymphedema Management,Manual Therapy,Neuromuscular Re- education,Patient/Caregiver Education,Self-Care/Home Management,Sensory Integration ,Soft Tissue Mobilization, Taping,Therapeutic Activities, Therapeutic Exercises Next Visit Focus/Plan Next Note Type Treatment Note Next Visit Plan Review and re-add band hip exercises and side stepping, progress gait and balance exercises
--- NOTE | 2020-05-18 11:38 | PT.OPDS ---
Current Diagnoses Lymphedema, not elsewhere classified (04/29/20) Low back pain (04/29/20) Visit Care Team Role Provider Type Yolis Salazar DO Attending Provider Non-Staff Primary Care Provider Specialty: Family Practice Address: [address] [place] [address], [phone] Email: Visit Number Visit Number 3/next 10 visits Discharge Summary PT-OP-B Current Condition Start: 05/07/19 12:10 Freq: Status: Active Protocol: Document 11/21/19 15:06 SAK (Rec: 11/21/19 15:19 SAK [id number]) Current Condition History of Current Condition Onset Date 2 years Current Complaints swelling bilateral LE's History of Current Condition Swelling since fracture right ankle, treated with ORIF surgery and rehab. Mobility has declined, gradual worsening with weight gain. Some discoloration in LE's, swelling some improved with elevation. Doesn't wear compression garment because reports has been unable to find any large enough; has size 15 foot. Worse on right than left. Has been doing PT for mobility, strengthening, pain management. Reports pain creeping back up since not seen in physical therapy. Treatment Goals Patient/Caregiver Goals Decrease lymphedema bilateral LE's to allow improved mobility, improve health. PT-OP-C Subjective Start: 05/07/19 12:10 Freq: Status: Active Protocol: Document 04/29/20 13:02 MB (Rec: 04/29/20 13:52 MB [id number]) OP-PT Subjective Patient Comments Patient Comments I have some back spasming and I feel like I have a package of marbles in my head when I turn sometimes. Pt states that his symptoms do feel a little bit like when he had positional vertigo in the past . Pt is also off diuretic. PT-OP-G Mobility & Gait Start: 05/07/19 12:10 Freq: Status: Active Protocol: Document 05/07/19 12:18 MB (Rec: 05/07/19 15:52 MB [id number]) OP Gait Assessment Comments Gait Comments Forward, flexed posture with use of his bariatric RW with tray. Decreased step-length and foot clearance and pt winces with pain after 112' gait and reports 6.5/10 LBP and so 6MWT stopped. He was able to walk this distance in 80 sec. PT-OP-M Strength Start: 05/07/19 12:10 Freq: Status: Active Protocol: Document 05/07/19 12:18 MB (Rec: 05/07/19 15:52 MB [id number]) Hip Strength Hip Manual Muscle Testing Left Flexion (L2) 2- Poor- Right Flexion (L2) 2- Poor- Comments Pt is unable to clear thigh off bench Knee Strength Knee Manual Muscle Testing Left Extension (L3) 3 Fair Comments Pt is unable to clear his foot back in sitting to assess knee flexion. Right Extension (L3) 3 Fair Comments Pt is unable to clear his foot back in sitting to assess knee flexion. Ankle/Foot Strength Ankle and Foot Manual Muscle Testing Left Dorsiflexion (L4) 4 Good Plantarflexion (S1) 4 Good Comments Great toe extension left 4/5 Right Dorsiflexion (L4) 4 Good Plantarflexion (S1) 3 Fair Comments Great toe extension right 3+/5 PT-OP-N Lymphedema Start: 11/19/19 12:12 Freq: Status: Active Protocol: Document 02/26/20 14:45 SAK (Rec: 02/26/20 16:18 SAK [id number]) Lymphedema Measurements Lower Extremity Circumference Measurements right LE MT Heads 26 cm Medial Malleolus 38.6 cm 10 cm From Medial Malleolus 40.8 cm 20 cm From Medial Malleolus 47.5 cm 30 cm From Medial Malleolus 57.4 cm 40 cm From Medial Malleolus 63.8 cm 50 cm From Medial Malleolus 63.4 cm 60 cm From Medial Malleolus 79.9 cm 70 cm From Medial Malleolus 93.5 cm 80 cm From Medial Malleolus 104 cm left LE MT Heads 26.2 cm Medial Malleolus 38.9 cm 10 cm From Medial Malleolus 42.4 cm 20 cm From Medial Malleolus 51.7 cm 30 cm From Medial Malleolus 57.7 cm 40 cm From Medial Malleolus 57.3 cm 50 cm From Medial Malleolus 72.9 cm 60 cm From Medial Malleolus 90.3 cm 70 cm From Medial Malleolus 95.1 cm 80 cm From Medial Malleolus 104.2 cm PT-OP-T Assessment and Plan Start: 05/07/19 12:10 Freq: Status: Active Protocol: Document 05/18/20 11:33 MB (Rec: 05/18/20 11:38 MB [id number]) Physical Therapy Plan Discharge Physical Therapy Discharge Reasons Change in Medical Status Discharge Comments PT receives call from pt's caregiver, Nury, who states that pt fell at home, she found him on Monday and that pt broke his ankle. She states that he is in the hospital in [place] and has not yet had surgery. Will d/c PT at this time.
== END 2020-05-19 13:33 ==
LOC: PHYS 13:00
PROVIDERS: PCP Family Medicine; Visit Provider Family Medicine
DX: M54.5 Low back pain (principal); I89.0 Lymphedema, not elsewhere classified
CPT/HCPCS: 95992; 97016; 97110; 97116; 97140; 97162; 97164; 97530; 97535